=== PATIENT | female | born 1930 | race Caucasian/White ===

== ENCOUNTER 2016-12-26 11:17 | Emergency (ER) | payer OTHER ==
--- NOTE | 2016-12-26 11:16 | EDPHY ---
H & P Time Seen by Provider: 12/26/16 11:20 HPI/ROS: CHIEF COMPLAINT: Altered mental status last night HISTORY OF PRESENT ILLNESS: Patient is going through chemotherapy for Hodgkin' s lymphoma and last night apparently was delirious. She thought there was a democrat at her house for cowboys, and cow girls and was trying to get food prepared for them. Her daughter showed up this morning and found out about the confusion and had her transported for evaluation. The patient currently is not confused. She thinks that the chemotherapy is just" too much for me." Currently patient does not have a headache. She has some leg pain and feels very fatigued. REVIEW OF SYSTEMS: Eye: no change in vision ENT: no sore throat Cardiac: no chest pain or syncope Pulmonary: no cough or SOB Abdomen: no vomiting, diarrhea, abdominal pain Musculoskeletal: no back pain Skin: no rash Neuro: no headache Constitutional: no fever : no urinary symptoms A comprehensive 10 point review of systems is otherwise negative aside from elements mentioned in the history of present illness. PAST MEDICAL HISTORY: Lymphoma as noted above Social history: No alcohol or tobacco, here with daughter General Appearance: Alert and conversant, cooperative. Eyes: No scleral icterus. ENT, Mouth: Normal mucous membranes. Respiratory: Normal respiratory effort, breath sounds equal, lungs are clear to auscultation. Cardiovascular: Regular rate and rhythm. Gastrointestinal: Abdomen is soft and non tender. Neurological: Alert and oriented x3. Normally conversant. Face symmetric, normal movement and sensation in all extremities. Negative pronator drift, [id number] normal bilaterally. Not confused currently Skin: Warm and dry, no rashes. Musculoskeletal: No peripheral edema and no joint swelling. Psychiatric: Not agitated. Emergency Department course/MDM: EKG, labs to include chemistries and urinalysis, noncontrast head CT. 1200: Negative head CT for stroke or bleed per Dr. Peña 1250: Results discussed, plan for discharge without antibiotics with negative urinalysis. Likely delirium, possibly related to chemotherapy, resolved at this time. Constitutional: Initial Vital Signs Temperature (C) 36.9 C 12/26/16 11:20 Heart Rate 99 12/26/16 11:20 Respiratory Rate 14 12/26/16 11:20 Blood Pressure 181/100 H 12/26/16 11:20 O2 Sat (%) 96 12/26/16 11:20 O2 Delivery Mode Room Air Allergies/Adverse Reactions: No Known Allergies Allergy (Verified 12/26/16 11:24) Home Medications: Medication Instructions Recorded Multivitamins [Multivitamin (*)] 1 each PO DAILY 10/27/11 Ascorbic Acid [Vitamin C 250 mg 250 mg PO DAILY 10/28/15 (*)] Cholecalciferol (Vitamin D3) 5,000 unit PO DAILY 10/28/15 [Vitamin D3] Timolol [Betimol] 1 drop EACHEYE BID 10/28/15 Aspirin [Aspirin 325 mg (*)] 325 mg PO DAILY PRN 03/01/16 Docusate Sodium [Colace 100 MG (*)] 100 mg PO BID PRN 03/01/16 Acetaminophen [Tylenol 325mg (*)] 650 mg PO Q4 PRN #0 tab 03/02/16 Combigan (*) 12/26/16 Lumigan 0.01% (*) 12/26/16 Medical Decision Making - Diagnostics EKG Interpretation: 12-lead EKG interpreted by me; official reading is in trace master. My interpretation is sinus rhythm with late anterior RS transition. Imaging Results: Imaging Impressions Head CT 12/26/16 11:26 Impression: 1. Moderate atrophy. 2. No acute hemorrhage, hydrocephalus, or mass effect. 3. Cerebrovascular atherosclerosis. 4. No definite acute infarct. 5. Moderate microvascular ischemic gliosis. 6. Consider MRI of the brain without and with contrast enhancement, if there is continued clinical concern. Findings and recommendations discussed with Emergency Department physician, MIREILLE YOUNG at 12:00 hour, 12/26/2016. Final report concurs with initial preliminary interpretation. - Data Points Laboratory Results: Laboratory Results 12/26/16 11:42 12/26/16 11:42 12/26/16 12/26/16 12/26/16 13:05 11:42 11:42 WBC 3.45 10^3/uL L 10^3/uL (3.80-9.50) RBC 4.33 10^6/uL 10^6/uL (4.18-5.33) Hgb 11.4 g/dL L g/dL (12.6-16.3) Hct 34.3 % L % (38.0-47.0) MCV 79.2 fL L fL (81.5-99.8) MCH 26.3 pg L pg (27.9-34.1) MCHC 33.2 g/dL g/dL (32.4-36.7) RDW 17.2 % H % (11.5-15.2) Plt Count 355 10^3/uL 10^3/uL (150-400) MPV 10.3 fL fL (8.7-11.7) Neut % (Auto) 40.4 % % (39.3-74.2) Lymph % (Auto) 28.1 % % (15.0-45.0) [place] % (Auto) 18.8 % H % (4.5-13.0) Eos % (Auto) 8.1 % H % (0.6-7.6) Baso % (Auto) 2.6 % H % (0.3-1.7) Nucleat RBC Rel Count 0.0 % % (0.0-0.2) Absolute Neuts (auto) 1.39 10^3/uL L 10^3/uL (1.70-6.50) Absolute Lymphs (auto) 0.97 10^3/uL L 10^3/uL (1.00-3.00) Absolute Monos (auto) 0.65 10^3/uL 10^3/uL (0.30-0.80) Absolute Eos (auto) 0.28 10^3/uL 10^3/uL (0.03-0.40) Absolute Basos (auto) 0.09 10^3/uL 10^3/uL (0.02-0.10) Absolute Nucleated RBC 0.00 10^3/uL 10^3/uL (0-0.01) Immature Gran % 2.0 % H % (0.0-1.1) Immature Gran # 0.07 10^3/uL 10^3/uL (0.00-0.10) Sodium 128 mEq/L L mEq/L (134-144) Potassium 4.5 mEq/L mEq/L (3.5-5.2) Chloride 96 mEq/L L mEq/L (97-110) Carbon Dioxide 22 mEq/l mEq/l (22-31) Anion Gap 10 mEq/L mEq/L (8-16) BUN 11 mg/dL mg/dL (7-23) Creatinine 0.7 mg/dL mg/dL (0.6-1.0) Estimated GFR > 60 Glucose 221 mg/dL H mg/dL (70-100) Calcium 9.2 mg/dL mg/dL (8.5-10.4) Urine Color YELLOW Urine Appearance HAZY Urine pH 6.0 (5.0-7.5) Ur Specific [place] 1.014 (1.002-1.030) Urine Protein NEGATIVE (NEGATIVE) Urine Ketones NEGATIVE (NEGATIVE) Urine Blood NEGATIVE (NEGATIVE) Urine Nitrate NEGATIVE (NEGATIVE) Urine Bilirubin NEGATIVE (NEGATIVE) Urine Urobilinogen NEGATIVE EU EU (0.2-1.0) Ur Leukocyte Esterase NEGATIVE (NEGATIVE) Urine RBC 1-3 /hpf /hpf (0-3) Urine WBC 1-3 /hpf /hpf (0-3) Ur Epithelial Cells TRACE /lpf /lpf (NONE-1+) Urine Mucus TRACE /lpf /lpf (NONE-1+) Urine Glucose 1+ H (NEGATIVE) Departure - Departure Disposition: Home, Routine, Self-Care Clinical Impression: altered mental status, resolved Condition: Good Instructions: Altered Mental Status (ED) Referrals: Maris Davies MD [Primary Care Provider] - As per Instructions
[2016-12-26 11:23] VITALS: TEMP 98.4; O2SAT 96
--- NOTE | 2016-12-26 11:42 | CPEKG ---
Heart Rate: 95 RR Interval: 632 P-R Interval: 176 QRSD Interval: 66 QT Interval: 380 QTC Interval: 478 P [place]: 50 QRS [place]: -12 T Wave [place]: 27 EKG Severity - ABNORMAL ECG - EKG Impression: SINUS RHYTHM EKG Impression: ABNRM R PROG, CONSIDER ASMI OR LEAD PLACEMENT Electronically Signed By: Bhavik Howe 26-Dec-2016 12:08:57
[2016-12-26 11:52] LABS: ABSOLUTE IMMATURE GRANULOCYTES 0.07 10^3/uL (0.00-0.10); ADD DIFF? NO; ADD MORPH? NO; ADD SCAN? NO; ATYPICAL LYMPHOCYTE FLAG 20 (0-99); FRAGMENT RBC FLAG 20 (0-99); HEMATOCRIT 34.3 % (38.0-47.0); HEMOGLOBIN 11.4 g/dL (12.6-16.3); LEFT SHIFT FLG 20 (0-99); LIPEMIA HEMOLYSIS FLAG 80 (0-99); MEAN CELL HEMOGLOBIN 26.3 pg (27.9-34.1); MEAN CELL HEMOGLOBIN CONCENTR. 33.2 g/dL (32.4-36.7); MEAN CELL VOLUME 79.2 fL (81.5-99.8); MEAN PLATELET VOLUME 10.3 fL (8.7-11.7); PLATELET CLUMPS FLAG 0 (0-99); PLATELET COUNT 355 10^3/uL (150-400); RED BLOOD CELL COUNT 4.33 10^6/uL (4.18-5.33); RED CELL DISTRIBUTION WIDTH 17.2 % (11.5-15.2)
[2016-12-26 12:26] LABS: ANION GAP 10 mEq/L (8-16); CALCIUM 9.2 mg/dL (8.5-10.4); CARBON DIOXIDE 22 mEq/l (22-31); CHLORIDE 96 mEq/L (97-110); CREATININE 0.7 mg/dL (0.6-1.0); GLOMERULAR FILTRATION RATE > 60; GLUCOSE 221 mg/dL (70-100); POTASSIUM 4.5 mEq/L (3.5-5.2); SODIUM 128 mEq/L (134-144)
[2016-12-26 12:42] VITALS: PULSE 84; RESP 18
[2016-12-26 13:11] VITALS: BP 161/94
[2016-12-26 13:11] LABS: COLOR YELLOW; LEUKOCYTE ESTERASE,URINE NEGATIVE (NEGATIVE); NITRITE,URINE NEGATIVE (NEGATIVE)
[2016-12-26 13:20] LABS: MUCUS TRACE /lpf (NONE-1+)
== END 2016-12-26 13:11 | disposition home or self-care (01) ==
LOC: EDUNIT#
DX: R41.82 Altered mental status, unspecified (principal); Z79.82 Long term (current) use of aspirin; Z85.71 Personal history of Hodgkin lymphoma

== ENCOUNTER 2017-02-01 20:28 | Inpatient (IN) | payer OTHER ==
[2017-02-01] MEDS ORDERED: IOPAMIDOL (ISOVUE-300) 100 ML BTL ONE ×2 (20:46→20:55)
--- NOTE | 2017-02-01 20:51 | CPEKG ---
Heart Rate: 108 RR Interval: 556 P-R Interval: 156 QRSD Interval: 68 QT Interval: 344 QTC Interval: 461 P [place]: 58 QRS [place]: 5 T Wave [place]: 51 EKG Severity - OTHERWISE NORMAL ECG - EKG Impression: SINUS TACHYCARDIA Electronically Signed By: Jaswinder Payton 02-Feb-2017 09:06:54
[2017-02-01 20:58] LABS: COLOR YELLOW; LEUKOCYTE ESTERASE,URINE 3+ (NEGATIVE); NITRITE,URINE NEGATIVE (NEGATIVE)
[2017-02-01 20:59] LABS: % IMMATURE GRANULYOCYTES 0.6 % (0.0-1.1); ABSOLUTE IMMATURE GRANULOCYTES 0.06 10^3/uL (0.00-0.10); ADD DIFF? NO; ADD MORPH? NO; ADD SCAN? NO; ATYPICAL LYMPHOCYTE FLAG 0 (0-99); FRAGMENT RBC FLAG 20 (0-99); HEMATOCRIT 36.5 % (38.0-47.0); HEMOGLOBIN 12.1 g/dL (12.6-16.3); LEFT SHIFT FLG 0 (0-99); LIPEMIA HEMOLYSIS FLAG 80 (0-99); MEAN CELL HEMOGLOBIN 27.1 pg (27.9-34.1); MEAN CELL HEMOGLOBIN CONCENTR. 33.2 g/dL (32.4-36.7); MEAN CELL VOLUME 81.8 fL (81.5-99.8); MEAN PLATELET VOLUME 9.5 fL (8.7-11.7); PLATELET CLUMPS FLAG 0 (0-99); PLATELET COUNT 394 10^3/uL (150-400); RED BLOOD CELL COUNT 4.46 10^6/uL (4.18-5.33); RED CELL DISTRIBUTION WIDTH 17.7 % (11.5-15.2)
[2017-02-01 21:07] LABS: WBC,URINE 50-182 /hpf (0-3)
[2017-02-01 21:08] LABS: RBC,URINE NONE SEEN /hpf (0-3)
[2017-02-01 21:17] LABS: ANION GAP 13 mEq/L (8-16); CALCIUM 9.7 mg/dL (8.5-10.4); CARBON DIOXIDE 21 mEq/l (22-31); CHLORIDE 98 mEq/L (97-110); CREATININE 0.7 mg/dL (0.6-1.0); GLOMERULAR FILTRATION RATE > 60; GLUCOSE 196 mg/dL (70-100); POTASSIUM 3.9 mEq/L (3.5-5.2); SODIUM 132 mEq/L (134-144)
--- NOTE | 2017-02-01 21:45 | EDPHY ---
H & P Stated Complaint: increased confusion last 2 days Time Seen by Provider: 02/01/17 21:24 - Personal History Current Tetanus Diphtheria and Acellular Pertussis (TDAP): No Tetanus Vaccine Date: < 10 yeaes - Medical/Surgical History Hx Asthma: No Hx Chronic Respiratory Disease: No Hx Diabetes: No Hx Cardiac Disease: No Hx Renal Disease: No Hx Cirrhosis: No Hx Alcoholism: No Hx HIV/AIDS: No Hx Splenectomy or Spleen Trauma: No Other PMH: HTN, LAP TYREL, CATARACTS SURGERY. LEFT KNEE REPLACEMENT. hodgkins lymphoma (radiation & chemotherapy 02/2016), chemo Aug 2016/October 2016, hyponatremia - Social History Smoking Status: Never smoked Constitutional: Initial Vital Signs Temperature (C) 37.3 C 02/01/17 20:32 Heart Rate 109 H 02/01/17 20:32 Respiratory Rate 20 02/01/17 20:32 Blood Pressure 211/102 H 02/01/17 20:32 O2 Sat (%) 95 02/01/17 20:32 O2 Delivery Mode Room Air Allergies/Adverse Reactions: No Known Allergies Allergy (Verified 12/26/16 11:24) Home Medications: Medication Instructions Recorded Multivitamins [Multivitamin (*)] 1 each PO DAILY 10/27/11 Ascorbic Acid [Vitamin C 250 mg 250 mg PO DAILY 10/28/15 (*)] Cholecalciferol (Vitamin D3) 5,000 unit PO DAILY 10/28/15 [Vitamin D3] Timolol [Betimol] 1 drop EACHEYE BID 10/28/15 Aspirin [Aspirin 325 mg (*)] 325 mg PO DAILY PRN 03/01/16 Docusate Sodium [Colace 100 MG (*)] 100 mg PO BID PRN 03/01/16 Acetaminophen [Tylenol 325mg (*)] 650 mg PO Q4 PRN #0 tab 03/02/16 Combigan (*) 12/26/16 Lumigan 0.01% (*) 12/26/16 Medical Decision Making - Diagnostics Imaging Results: Imaging Impressions Head CT 02/01/17 20:43 Impression: Senescent features, with no significant interval change from 2016, or evidence of intracranial metastatic disease. Consider an MRI of the brain (without and with contrast), if there is continuing clinical concern, and if not contraindicated. Findings were discussed with Ezio Goodwin MD at 21:34, on 02/01/2017. Imaging: Discussed imaging studies w/ geospatial intelligence analyst Radiologist ED Course/Re-evaluation: CHIEF COMPLAINT: Confusion HISTORY OF PRESENT ILLNESS: The patient is an 86 y/o female arriving with her family member complaining of confusion. She states she walked naked through the hallway and does not know why. She has a history of Hodgkin's lymphoma and her most recent session of chemotherapy was a few months ago. She denies urinary complaints, fever, abdominal pain, trauma, or recent illness. She otherwise feels normal. REVIEW OF SYSTEMS: A 10 point review of systems was performed and is negative with the exception of the elements mentioned in the history of present illness. PHYSICAL EXAM: HR, BP, O2 Sat, RR. Temp noted General Appearance: Alert, well hydrated, appropriate, and non-toxic appearing. Head: Atraumatic without scalp tenderness or obvious injury Eyes: Pupils equal, round, reactive to light and accommodation, EOMI, no trauma , no injection. Nose: Atraumatic, no rhinorrhea, clear. Throat: Mucus membranes moist. Neck: Supple, non-tender, no lymphadenopathy. Respiratory: No retractions, no distress, no wheezes, and no accessory muscle use. Lungs are clear to auscultation bilaterally. Cardiovascular: Regular rate and rhythm, no murmurs, rubs, or gallops. Good capillary refill all extremities. Gastrointestinal: Abdomen is soft, non-tender, non-distended, no masses, no rebound, no guarding, no peritoneal signs. Musculoskeletal: Normal active ROM of all extremities, atraumatic. Neurological: Alert, appropriate, and interactive. Nonfocal neuro exam. Skin: No rashes, good turgor, no nodules on palpation. PAST MEDICAL HISTORY: Hodgkin's lymphoma - recent chemo, hypertension PAST SURGICAL HISTORY: Cholecystectomy, knee replacement SOCIAL HISTORY: Lives in independent living at [facility]. Family member at bedside. DIAGNOSTICS/PROCEDURES/CRITICAL CARE TIME: Head CT: negative for acute process DIFFERENTIAL DIAGNOSIS: The differential diagnosis for the patient's altered mental status included but was not limited to hypoglycemia, infectious process, electrolyte abnormality, head injury, neurologic process, anemia, cardiac process, and intoxicants. MEDICAL DECISION MAKING: This is a pleasant 86 y/o female presenting with gradually worsening confusion over the last few days. Her exam is otherwise unremarkable. Plan for IV, labs, UA, and head CT to rule out metastases or other acute process. UA indicates UTI. Patient will not be able to care for herself in her independent living facility alone and will require admission. Dr. Waite accepts admission. - Data Points Laboratory Results: Laboratory Results 02/01/17 20:40 02/01/17 20:40 02/01/17 02/01/17 02/01/17 20:48 20:48 20:40 WBC RBC Hgb POC Hgb 13.3 gm/dL gm/dL (12.6-16.3) Hct POC Hct 39 % % (38-47) MCV MCH MCHC RDW Plt Count MPV Neut % (Auto) Lymph % (Auto) [place] % (Auto) Eos % (Auto) Baso % (Auto) Nucleat RBC Rel Count Absolute Neuts (auto) Absolute Lymphs (auto) Absolute Monos (auto) Absolute Eos (auto) Absolute Basos (auto) Absolute Nucleated RBC Immature Gran % Immature Gran # POC Sodium 136 mEq/L mEq/L (134-144) Sodium 132 mEq/L L mEq/L (134-144) POC Potassium 3.6 mEq/L mEq/L (3.3-5.0) Potassium 3.9 mEq/L mEq/L (3.5-5.2) POC Chloride 98 mEq/L mEq/L (97-110) Chloride 98 mEq/L mEq/L (97-110) Carbon Dioxide 21 mEq/l L mEq/l (22-31) Anion Gap 13 mEq/L mEq/L (8-16) POC BUN 14 mg/dL mg/dL (7-23) BUN 15 mg/dL mg/dL (7-23) Creatinine 0.7 mg/dL mg/dL (0.6-1.0) POC Creatinine 0.7 mg/dL mg/dL (0.6-1.0) Estimated GFR > 60 Glucose 196 mg/dL H mg/dL (70-100) POC Glucose 199 mg/dL H mg/dL (70-100) Calcium 9.7 mg/dL mg/dL (8.5-10.4) Urine Color YELLOW Urine Appearance TURBID Urine pH 5.0 (5.0-7.5) Ur Specific [place] 1.020 (1.002-1.030) Urine Protein 2+ H (NEGATIVE) Urine Ketones NEGATIVE (NEGATIVE) Urine Blood NEGATIVE (NEGATIVE) Urine Nitrate NEGATIVE (NEGATIVE) Urine Bilirubin NEGATIVE (NEGATIVE) Urine Urobilinogen NEGATIVE EU EU (0.2-1.0) Ur Leukocyte Esterase 3+ H (NEGATIVE) Urine RBC NONE SEEN /hpf /hpf (0-3) Urine WBC 50-182 /hpf H /hpf (0-3) Ur Epithelial Cells TRACE /lpf /lpf (NONE-1+) Urine Glucose NEGATIVE (NEGATIVE) 02/01/17 20:40 WBC 10.19 10^3/uL H 10^3/uL (3.80-9.50) RBC 4.46 10^6/uL 10^6/uL (4.18-5.33) Hgb 12.1 g/dL L g/dL (12.6-16.3) POC Hgb Hct 36.5 % L % (38.0-47.0) POC Hct MCV 81.8 fL fL (81.5-99.8) MCH 27.1 pg L pg (27.9-34.1) MCHC 33.2 g/dL g/dL (32.4-36.7) RDW 17.7 % H % (11.5-15.2) Plt Count 394 10^3/uL 10^3/uL (150-400) MPV 9.5 fL fL (8.7-11.7) Neut % (Auto) 74.7 % H % (39.3-74.2) Lymph % (Auto) 13.1 % L % (15.0-45.0) [place] % (Auto) 10.6 % % (4.5-13.0) Eos % (Auto) 0.3 % L % (0.6-7.6) Baso % (Auto) 0.7 % % (0.3-1.7) Nucleat RBC Rel Count 0.0 % % (0.0-0.2) Absolute Neuts (auto) 7.62 10^3/uL H 10^3/uL (1.70-6.50) Absolute Lymphs (auto) 1.33 10^3/uL 10^3/uL (1.00-3.00) Absolute Monos (auto) 1.08 10^3/uL H 10^3/uL (0.30-0.80) Absolute Eos (auto) 0.03 10^3/uL 10^3/uL (0.03-0.40) Absolute Basos (auto) 0.07 10^3/uL 10^3/uL (0.02-0.10) Absolute Nucleated RBC 0.00 10^3/uL 10^3/uL (0-0.01) Immature Gran % 0.6 % % (0.0-1.1) Immature Gran # 0.06 10^3/uL 10^3/uL (0.00-0.10) POC Sodium Sodium POC Potassium Potassium POC Chloride Chloride Carbon Dioxide Anion Gap POC BUN BUN Creatinine POC Creatinine Estimated GFR Glucose POC Glucose Calcium Urine Color Urine Appearance Urine pH Ur Specific [place] Urine Protein Urine Ketones Urine Blood Urine Nitrate Urine Bilirubin Urine Urobilinogen Ur Leukocyte Esterase Urine RBC Urine WBC Ur Epithelial Cells Urine Glucose Point of Care Test Results: 02/01/17 20:48 POC Sodium 136 POC Potassium 3.6 POC Chloride 98 POC BUN 14 POC Creatinine 0.7 POC Glucose 199 H Departure - Departure Disposition: [facility] Inpatient Acute Clinical Impression: Confusion UTI (urinary tract infection) Qualifiers: Urinary tract infection type: site unspecified Hematuria presence: without hematuria Qualified Code(s): N39.0 - Urinary tract infection, site not specified Condition: Fair Referrals: Maris Davies MD [Primary Care Provider] - As per Instructions Report Scribed for: Ezio Goodwin Report Scribed by: Jodi Saini Date of Report: 02/01/17 Time of Report: 21:45
[2017-02-01] MEDS ORDERED: ONDANSETRON DISINTEGRATING 4 MG TAB PO PRN (23:06)
[2017-02-01] MEDS ORDERED: ACETAMINOPHEN 325 MG TAB PO PRN (23:06)
[2017-02-01] MEDS ORDERED: ONDANSETRON 4 MG/2 ML VIAL IVP PRN (23:06)
[2017-02-01] MEDS ORDERED: NS 1,000 ML IV SCH (23:15)
--- NOTE | 2017-02-02 00:41 | GHP ---
[f rep st] HISTORY AND PHYSICAL DATE OF ADMISSION: 02/01/2017 HISTORY: This patient is a pleasant 86-year-old female with history of glaucoma and Hodgkin lymphom a, who lives at [facility]. At baseline, she has no memory issues, but she was walking in the [place] [address] with no clothes on but her walker. She was brought here, where workup revealed pyuria. When I spoke with the patient, she denied urinary symptoms, other than maybe a little bit of difficulty wit h urinating. She is not on any anticholinergic medicines, other than potentially dorzolamide eyedro ps. She has intermittent diarrhea, but it is not worse. No shortness of breath. No cough. No fever or chills. No chest pain. She is not taking any [id number] medicines. She does not drink alco hol. She was diagnosed with Hodgkin disease 2 years ago, completed chemotherapy and radiation with not much response, but it sounds like she is getting a liposomal preparation as an outpatient ____ good response to it. She is not neutropenic today. She does not have a history of UTIs. REVIEW OF SYSTEMS: Complete 10-point review of systems conducted; negative except as noted in the H PI. PAST MEDICAL HISTORY: Hodgkin disease, glaucoma, hypertension in the past, no longer on medicines. She had glaucoma surgery 8 days ago, is currently denying vision complaints. ALLERGIES: No known drug allergies. HOME MEDICATIONS: Aspirin, Lumigan eye drops, Combigan eye drops, vitamin D3, dorzolamide eye drops , multivitamin. SOCIAL HISTORY: No alcohol or tobacco. Originally from [place]. Lives in [facility]. . FAMILY HISTORY: Daughter is healthy. PHYSICAL EXAMINATION: VITAL SIGNS: Temp 37.3, blood pressure 211/102, now 150/100, pulse 109, now 98, breathing 20 times a minute, 95% on room air. GENERAL: No acute distress. HEENT: Sclerae ani cteric. Oropharynx clear. Mucous membranes moist. NECK: Supple without lymphadenopathy or JVD. LUNGS: Clear to auscultation bilaterally. HEART: S1, S2. Borderline tachycardic. ABDOMEN: Soft . There is no suprapubic tenderness. LOWER EXTREMITIES: Without edema. Calves nontender. SKIN: Without rash. NEUROLOGIC: Nonfocal. LABORATORY DATA: White count 10.2, hematocrit 36.5, platelets 394,000. Sodium 132, potassium 3.9, chloride 98, bicarb 21, BUN 15, creatinine 0.7, glucose 196. UA shows 3+ leukocyte esterase, 50-[address] shows senescent features, no acute findings. EKG, interpreted by me, shows sinus tach at 108 with normal axis and intervals. There are no ST or T-wave changes. Discussed the case Dr. Ezio Goodwin. ASSESSMENT/PLAN: This is an 86-year-old female who presents with urinary tract infection and enceph alopathy. 1. Encephalopathy. This is manifest by wandering naked in the hallway with her walker. She is jameson rt and oriented pretty much x3 and does not seem confused when I speak with her. I think it is attr ibutable to the UTI. She has had no substances or ingestions. Normal noncontrast head CT. 2. Urinary tract infection. She does not have symptoms, but she does have confusion. It is reason able to treat. I will start her on ceftriaxone. Urine culture sent. 3. Lymphoma. In the morning, I will inform her oncologist, Dr. Bernard, that she is here. There are no active issues, is no neutropenic, is not thrombocytopenic. 4. Code status. We discussed that she is full code. It sounds like she has not really thought abo ut it much. She is going to talk about it with her daughter, who is a white sugar pan tank operator. 5. Hyponatremia, mild. 6. Tachycardia. I think the patient is clinically dry. Will give her a couple liters of IV fluids at 125 an hour. 7. Prophylaxis. Start enoxaparin 30 daily. /[id number]/MODL
[2017-02-02 05:06] LABS: % IMMATURE GRANULYOCYTES 0.4 % (0.0-1.1); ABSOLUTE IMMATURE GRANULOCYTES 0.03 10^3/uL (0.00-0.10); ADD DIFF? NO; ADD MORPH? NO; ADD SCAN? NO; ATYPICAL LYMPHOCYTE FLAG 0 (0-99); FRAGMENT RBC FLAG 20 (0-99); HEMATOCRIT 32.7 % (38.0-47.0); HEMOGLOBIN 10.8 g/dL (12.6-16.3); LEFT SHIFT FLG 10 (0-99); LIPEMIA HEMOLYSIS FLAG 80 (0-99); MEAN CELL HEMOGLOBIN 27.3 pg (27.9-34.1); MEAN CELL VOLUME 82.6 fL (81.5-99.8); MEAN PLATELET VOLUME 10.3 fL (8.7-11.7); PLATELET CLUMPS FLAG 0 (0-99); PLATELET COUNT 353 10^3/uL (150-400); RED BLOOD CELL COUNT 3.96 10^6/uL (4.18-5.33); RED CELL DISTRIBUTION WIDTH 17.6 % (11.5-15.2)
[2017-02-02 05:18] LABS: ANION GAP 10 mEq/L (8-16); CALCIUM 9.4 mg/dL (8.5-10.4); CARBON DIOXIDE 23 mEq/l (22-31); CHLORIDE 100 mEq/L (97-110); CREATININE 0.7 mg/dL (0.6-1.0); GLOMERULAR FILTRATION RATE > 60; GLUCOSE 138 mg/dL (70-100); POTASSIUM 3.9 mEq/L (3.5-5.2); SODIUM 133 mEq/L (134-144)
[2017-02-02] MEDS: CHOLECALCIFEROL VIT D3 1,000 UNITS TAB PO SCH (08:19)
[2017-02-02] MEDS: MULTIVITAMINS 1 EACH TAB PO SCH (08:20)
[2017-02-02] MEDS: ASPIRIN 325 MG TAB PO SCH (08:20)
[2017-02-02] MEDS: BRIMONIDINE/TIMOLOL 5 ML OPHT.BTL EACHEYE SCH ×2 (08:22→20:14)
[2017-02-02] MEDS: DORZOLAMIDE 2% OPTH DROPS EACHEYE SCH ×2 (08:22→20:15)
[2017-02-02] MEDS ORDERED: ENOXAPARIN 30 MG/0.3 ML SYR SC SCH (09:00)
[2017-02-02] MEDS ORDERED: Herbals/Supplements -Info Only PO SCH (09:00)
--- NOTE | 2017-02-02 12:38 | HOSPPROG ---
Hospitalist Progress Note Assessment/Plan: The patient is a 86 y/o female who came to the ER with acute encephalopathy.Today is my first encounter with the patient/chart reviewed. *acute encephalopathy CT of head shows nothing acute she is alert and oriented to person, place, time and situation she thinks she may have been dehydrated *UTI ceftriaxone prior to being admitted, had symptoms of increase urgency and frequency will f/u w urine cx *Hodgkin lymphoma followed by Dr Bernard has received 3 rounds of chemo has one coming up soon *hyponatremia better w hydration will recheck in a.m. *anemia further f/u with PCP *htn doesn't carry a diagnosis of this per her daughter, her mom's bp goes up while in the hospital will hold treatment for now and monitor *glaucoma eye gtts resumed *Plan: watch her for another midnight/ will ask PT, OT and ST to see Subjective: Vickie is feeling much better today/ says she has been sleeping through out the day. Objective: Vital Signs Temp Pulse Resp BP Pulse Ox 36.6 C 75 15 110/58 L 95 02/02/17 11:30 02/02/17 11:30 02/02/17 11:30 02/02/17 11:30 02/02/17 11:30 Laboratory Results 02/02/17 04:25 02/02/17 04:25 02/01/17 02/02/17 02/03/17 05:59 05:59 05:59 Intake Total 50 820 Balance 50 820 - Physical Exam Constitutional: no apparent distress, appears nourished, not in pain Eyes: PERRL Ears, Nose, Mouth, Throat: hearing normal Cardiovascular: regular rate and rhythym Respiratory: no respiratory distress Gastrointestinal: normoactive bowel sounds Skin: warm Neurologic: AAOx3, CN II-XII Intact, No facial droop Psychiatric: interacting appropriately, not anxious, not encephalopathic ICD10 Worksheet Patient Problems: Problems Problem Status Onset Confusion Acute UTI (urinary tract infection) Acute Confusion Acute Hypertension Acute Hyponatremia Acute Word finding difficulty Acute
[2017-02-02] MEDS ORDERED: BIMATOPROST 0.01% 2.5 ML OPHT.BTL EACHEYE SCH (21:00)
[2017-02-03 04:41] LABS: % IMMATURE GRANULYOCYTES 0.5 % (0.0-1.1); ABSOLUTE IMMATURE GRANULOCYTES 0.05 10^3/uL (0.00-0.10); ADD DIFF? NO; ADD MORPH? NO; ADD SCAN? NO; ATYPICAL LYMPHOCYTE FLAG 0 (0-99); FRAGMENT RBC FLAG 20 (0-99); HEMATOCRIT 33.4 % (38.0-47.0); HEMOGLOBIN 11.3 g/dL (12.6-16.3); LEFT SHIFT FLG 0 (0-99); LIPEMIA HEMOLYSIS FLAG 90 (0-99); MEAN CELL HEMOGLOBIN 27.8 pg (27.9-34.1); MEAN CELL HEMOGLOBIN CONCENTR. 33.8 g/dL (32.4-36.7); MEAN CELL VOLUME 82.3 fL (81.5-99.8); MEAN PLATELET VOLUME 9.9 fL (8.7-11.7); PLATELET CLUMPS FLAG 0 (0-99); PLATELET COUNT 346 10^3/uL (150-400); RED BLOOD CELL COUNT 4.06 10^6/uL (4.18-5.33); RED CELL DISTRIBUTION WIDTH 17.6 % (11.5-15.2)
[2017-02-03 05:01] VITALS: PULSE 79
[2017-02-03 05:01] LABS: ANION GAP 12 mEq/L (8-16); CALCIUM 9.3 mg/dL (8.5-10.4); CARBON DIOXIDE 21 mEq/l (22-31); CHLORIDE 104 mEq/L (97-110); CREATININE 0.7 mg/dL (0.6-1.0); GLOMERULAR FILTRATION RATE > 60; GLUCOSE 160 mg/dL (70-100); POTASSIUM 3.8 mEq/L (3.5-5.2); SODIUM 137 mEq/L (134-144)
[2017-02-03 07:44] VITALS: BP 183/90; RESP 18; TEMP 97.7; O2SAT 96
[2017-02-03] MEDS: CHOLECALCIFEROL VIT D3 1,000 UNITS TAB PO SCH (08:31)
[2017-02-03] MEDS: MULTIVITAMINS 1 EACH TAB PO SCH (08:31)
[2017-02-03] MEDS: ASPIRIN 325 MG TAB PO SCH (08:31)
[2017-02-03] MEDS: DORZOLAMIDE 2% OPTH DROPS EACHEYE SCH (08:32)
[2017-02-03] MEDS: BRIMONIDINE/TIMOLOL 5 ML OPHT.BTL EACHEYE SCH (08:32)
[2017-02-03] MEDS ORDERED: ENOXAPARIN 40 MG/0.4 ML SYR SC SCH (09:00)
--- NOTE | 2017-02-03 10:17 | HOSPPROG ---
Hospitalist Progress Note Assessment/Plan: The patient is a 86 y/o female who came to the ER with acute encephalopathy. *acute encephalopathy CT of head shows nothing acute she is alert and oriented to person, place, time and situation completely resolved *UTI ceftriaxone prior to being admitted, had symptoms of increase urgency and frequency urine cx showed enterococcus sensitivities not up/ will dc on Ampicillin and have her PCP f/u *Hodgkin lymphoma followed by Dr Bernard has received 3 rounds of chemo has one coming up soon *hyponatremia better w hydration resolved. *anemia further f/u with PCP *htn elevated this a.m per her daughter this is not her baseline will have it monitored daily and have her f/u with her PCP *glaucoma eye gtts resumed *Plan:dc home Subjective: Vickie is feeling well/ no complaints. Objective: Vital Signs Temp Pulse Resp BP Pulse Ox 36.5 C 79 18 183/90 H 96 02/03/17 07:44 02/03/17 07:44 02/03/17 07:44 02/03/17 07:44 02/03/17 07:44 Laboratory Results 02/03/17 04:17 02/03/17 04:17 02/02/17 02/03/17 02/04/17 05:59 05:59 05:59 Intake Total 50 1670 Balance 50 1670 - Physical Exam Constitutional: no apparent distress, appears nourished, not in pain Eyes: PERRL Ears, Nose, Mouth, Throat: hearing normal Cardiovascular: regular rate and rhythym Respiratory: no respiratory distress Gastrointestinal: normoactive bowel sounds Skin: warm, normal color Musculoskeletal: no muscle tenderness Neurologic: AAOx3 Psychiatric: interacting appropriately, not anxious ICD10 Worksheet Patient Problems: Problems Problem Status Onset Confusion Acute UTI (urinary tract infection) Acute Confusion Acute Hypertension Acute Hyponatremia Acute Word finding difficulty Acute
--- NOTE | 2017-02-03 11:05 | GDS ---
[f rep st] DISCHARGE SUMMARY DISCHARGE DIAGNOSES: 1. Acute encephalopathy/resolved. 2. Urinary tract infection. 3. Hodgkin lymphoma. 4. Hyponatremia. 5. Anemia. 6. Hypertension. 7. Coma. BRIEF HISTORY: The patient is a very sweet, 86-year-old woman, with a history of glaucoma and Hodgk in lymphoma. She lives at the [facility]. At baseline, she has no memory issues. She was walking in the hallway with no clothes on, but with her walker. She was very confused. Her workup revealed py uria, after getting hydration and treated for urinary tract infection, all of her symptoms had resol myla. She had a CT scan of her head that was negative. HOSPITAL COURSE: 1. Acute encephalopathy. CT scan showed nothing acute, resolved. I suspect she was dehydrated and had a UTI. 2. Urinary tract infection. Her urine culture shows Enterococcus. I do not have current sensitivi ties. I will discharge her on amoxicillin, and leave a message for her primary care provider to fol low up with. 3. Hodgkin lymphoma. Follow up with Dr. Bernard. 4. Hyponatremia, resolved. 5. Anemia. Further monitoring with her primary care provider. 6. Hypertension. Blood pressure has been elevated during her stay. I spoke with the daughter balta lynn my concern, she said she is normotensive, unless she is here. We will have her get a blood pressu re cuff and monitor this at home. 7. Glaucoma. Eyedrops have been resumed. DISCHARGE CONDITION: Stable. Blood pressure is 169/83, heart rate is 89, respiratory rate is 17, O 2 sats on room air 94%, temperature is 37.2 Celsius. MEDICATIONS AT DISCHARGE: Please see the EMR. DISCHARGE INSTRUCTIONS: 1. Follow up with Dr. Davies. 2. Recommending that they monitor her blood pressure daily. She may need treatment. 3. If she develops fever, chills, chest pain, or shortness of breath return to the ER. Greater than 30 minutes discharging and coordinating care. /[id number]/MODL
== END 2017-02-03 12:35 | disposition home or self-care (01) | DRG 689 ==
LOC: OBSVTOIN 21:51 → F3E 22:25
PROVIDERS: ADMIT Internal Medicine; ATTEND Internal Medicine
DX: N39.0 Urinary tract infection, site not specified (principal); G93.40 Encephalopathy, unspecified; E87.1 Hypo-osmolality and hyponatremia; I10 Essential (primary) hypertension; C85.90 Non-Hodgkin lymphoma, unspecified, unspecified site; Z96.652 Presence of left artificial knee joint; H40.9 Unspecified glaucoma; D64.9 Anemia, unspecified
CPT/HCPCS: 82947-QW; 92523-GN; 97161-GP; 97165-GO; G8978-GP-CI; G8979-GP-CI; G8987-GO-CI; G8988-GO-CI; G8989-GO-CI; G9165-GN-CH; G9166-GN-CH; G9167-GN-CH; J0696; J1650; Q9967

== ENCOUNTER → 2017-04-24 | Outpatient (CLI) | payer OTHER | LOC: FIMAGING 14:08 | PROVIDERS: ATTEND Nurse Practitioner | DX: R60.9 Edema, unspecified (principal) ==

== ENCOUNTER → 2017-05-04 | Outpatient (CLI) | payer OTHER | LOC: FIMAGING 16:20 | PROVIDERS: ATTEND Nurse Practitioner | DX: R60.9 Edema, unspecified (principal) ==

== ENCOUNTER 2017-05-25 09:11 | Emergency (ER) | payer OTHER ==
[2017-05-25 09:20] VITALS: BP 172/79; PULSE 77; RESP 18; TEMP 97.3; O2SAT 97
--- NOTE | 2017-05-25 09:36 | EDPHY ---
H & P Time Seen by Provider: 05/25/17 09:19 HPI/ROS: CHIEF COMPLAINT: Left calf redness HISTORY OF PRESENT ILLNESS: Patient is had a wound on her posterior left calf for the past 6 weeks approximately. Of note she had ultrasound on April 24 and then again on May 04 both which were negative for DVT. She presents today because of physical therapist who sees her about every 2 weeks said it looked more red yesterday than usual and was concerned about infection. The patient has some intermittent pain but no change in that pattern over the past 6 weeks. No fevers or chills. No red streaking. No drainage from the wound. REVIEW OF SYSTEMS: As above, no chest pain or shortness of breath. PAST MEDICAL HISTORY: Includes Hodgkin's disease, glaucoma, hypertension, admission on 02/01/2017 for UTI, H&P personally reviewed. General Appearance: Alert and conversant, cooperative. Speaks full sentences, no extra work of breathing. Right knee and ankle of normal range of motion, which are soft and both thigh and calf. She has an area of healing wound with granulation tissue 1 cm of distal left calf with 1 cm surrounding erythema. Proximally there is an area which feels slightly indurated and is not tender but also has a 1 x 2 cm area of erythema. Scaling. No blisters or eschar. Not tender to palpation. There is no lymphangitis. No pus or drainage. Normal motor sensory and perfusion in the foot. No Achilles tenderness. Emergency Department course/MDM: Plan to treat possible cellulitis with Keflex, Bactrim. Does not appear to have systemic toxicity or require IV antibiotics. Patient had 2 recent ultrasounds, I think DVT is unlikely. Discussed with Rere at 9:[address] Bernard's office will arrange follow- up in the office on Sunday. Smoking Status: Never smoked Constitutional: Initial Vital Signs Temperature (C) 36.3 C 05/25/17 09:15 Heart Rate 77 05/25/17 09:15 Respiratory Rate 18 05/25/17 09:15 Blood Pressure 172/79 H 05/25/17 09:15 O2 Sat (%) 97 05/25/17 09:15 O2 Delivery Mode Room Air Allergies/Adverse Reactions: No Known Allergies Allergy (Verified 05/25/17 09:20) Home Medications: Medication Instructions Recorded Aspirin [Aspirin 325 mg (*)] 325 mg PO DAILY 02/01/17 Bimatoprost 0.01% [Lumigan 0.01% 1 drops EACHEYE HS 02/01/17 (*)] Brimonidine/Timolol [Combigan (*)] 1 drop EACHEYE BID 02/01/17 Cholecalciferol Vit D3 [Vitamin D3 2,000 units PO DAILY 02/01/17 (*)] Dorzolamide 2% [Trusopt 2% (*)] 1 drops EACHEYE BID 02/01/17 Herbals/Supplements -Info Only 1 ea PO DAILY 02/01/17 Multivitamins [Multivitamin (*)] 1 each PO DAILY 02/01/17 Cephalexin [Keflex] 500 mg PO QID #40 cap 05/25/17 Sulfamethox/Tmp 800/160 mg 1 tab PO BID@1000,2200 #20 tab 05/25/17 [Bactrim Ds] MDM/Departure - Depart Disposition: Home, Routine, Self-Care Clinical Impression: cellulitis left calf Condition: Good Instructions: Cellulitis (ED) Prescriptions: Cephalexin [Keflex] 500 mg PO QID #40 cap Sulfamethox/Tmp 800/160 mg [Bactrim Ds] 1 tab PO BID@1000,2200 #20 tab Referrals: Maris Davies MD [Primary Care Provider] - As per Instructions Amador Bernard MD [Medical Doctor] - 05/28/17
== END 2017-05-25 09:54 | disposition home or self-care (01) ==
LOC: CED 09:11
DX: L03.116 Cellulitis of left lower limb (principal); I10 Essential (primary) hypertension; Z79.82 Long term (current) use of aspirin

== ENCOUNTER 2017-07-13 07:54 | Inpatient (IN) | payer OTHER ==
[2017-07-13] MEDS ORDERED: ceFAZolin 2 GM/SWFI 2 GM/20 ML SYR IVP ONE (08:08)
[2017-07-13] MEDS ORDERED: LIDOCAINE 1% 2 ML INJ ONE (08:33)
[2017-07-13] MEDS ORDERED: LIDOCAINE 1% 2 ML INJ ID PRN (08:35)
[2017-07-13] MEDS ORDERED: LR 1,000 ML IV ONE (08:35)
[2017-07-13] MEDS ORDERED: BUPIVACAINE 0.5% 30 ML SDV ONE (08:45)
[2017-07-13] MEDS ORDERED: LIDOCAINE 1% 300 MG/30 ML SDV ONE (08:45)
--- NOTE | 2017-07-13 09:09 | PDHPUP ---
History & Physical Update H&P update statement: This history and physical update is based on an assessment of the patient which was completed after admission or registration (within 24 hours), but prior to the surgery/procedure. H&P update: H&P reviewed & patient examined, no change in patient's condition since H&P completed
[2017-07-13] MEDS ORDERED: MIDAZOLAM 2 MG/2 ML VIAL ONE (09:22)
[2017-07-13] MEDS ORDERED: MIDAZOLAM 2 MG/2 ML VIAL IVP ONE (09:23)
--- NOTE | 2017-07-13 09:24 | PDANEPAE ---
ANE Past Medical History - Cardiovascular History Hx Hypertension: No Hx Arrhythmias: No Hx Chest Pain: No Hx Coronary Artery / Peripheral Vascular Disease: No Hx CHF / Valvular Disease: No Hx Palpitations: No Cardiovascular History Comment: BP "sometimes runs high" - Pulmonary History Hx COPD: No Hx Asthma/Reactive Airway Disease: No Hx Recent Upper Respiratory Infection: No Hx Oxygen in Use at Home: No Hx Sleep Apnea: No Sleep Apnea Screening Result - Last Documented: Negative - Neurologic History Hx Cerebrovascular Accident: No Hx Seizures: No Hx Dementia: No Neurologic History Comment: TIA -no residual deficits. - Endocrine History Hx Diabetes: No Hypothyroid: No Hyperthyroid: No Obesity: no - Renal History Hx Renal Disorders: Yes Renal History Comment: severe UTI, hosp at [facility] 02-19. - Liver History Hx Hepatic Disorders: No - Neurological & Psychiatric Hx Hx Neurological and Psychiatric Disorders: No - Cancer History Hx Cancer: Yes Cancer History Comment: Hodgkin's lymphoma-chemo and radiation - Congenital Disorder History Hx Congenital Disorders: No - GI History GERD: no Hx Gastrointestinal Disorders: No - Other Health History Other Health History: on Rx-glaucoma. cellulitis lower extrem:scab L calf,Bx site R ankle(Dr Scruggs) - Chronic Pain History Chronic Pain: Yes (leg pain (neuropathy?)) - Surgical History Prior Surgeries: lap tessie. appy. L total knee. cataract extraction w/IOL ANE Review of Systems Review of Systems: - Exercise capacity METS (RN): 3 METS ANE Patient History - Allergies Allergies/Adverse Reactions: Sulfa (Sulfonamide Antibiotics) Allergy (Verified 07/10/17 14:04) Other-Enter Comments - Home Medications Home Medications: Aspirin [Aspirin 325 mg (*)] 325 mg PO DAILY 02/01/17 [Last Taken 07/12/17 06:00 ] Bimatoprost 0.01% [Lumigan 0.01% (*)] 1 drops EACHEYE HS 02/01/17 [Last Taken 20:00] Brimonidine/Timolol [Combigan (*)] 1 drop EACHEYE BID 02/01/17 [Last Taken 07/13 06:00] Cholecalciferol Vit D3 [Vitamin D3 (*)] 2,000 units PO DAILY 02/01/17 [Last Taken 07/12/17 06:00] Dorzolamide 2% [Trusopt 2% (*)] 1 drops EACHEYE BID 02/01/17 [Last Taken 06:00] Herbals/Supplements -Info Only 1 ea PO DAILY 02/01/17 [Last Taken 07/12/17 06:00 ] Multivitamins [Multivitamin (*)] 1 each PO DAILY 02/01/17 [Last Taken 07/12/17 06:00] Ibuprofen [Motrin (*)] 200 - 400 mg PO Q4-6PRN PRN 07/10/17 [Last Taken 11:59] - NPO status NPO Since - Liquids (Date): 07/13/17 NPO Since - Liquids (Time): 07:45 NPO Since - Solids (Date): 07/12/17 NPO Since - Solids (Time): 23:00 - Smoking Hx Smoking Status: Never smoked ANE Labs/Vital Signs - Vital Signs Blood Pressure: 187/90 Heart Rate: 84 Respiratory Rate: 15 O2 Sat (%): 97 Height: 148.59 cm Weight: 56.699 kg ANE Physical Exam - Airway Neck exam: decreased ROM Mallampati Score: Class 2 Mouth exam: normal dental/mouth exam - Pulmonary Pulmonary: no respiratory distress - Cardiovascular Cardiovascular: regular rate and rhythym - ASA Status ASA Status: II ANE Anesthesia Plan Anesthesia Plan: GA w LMA
[2017-07-13] MEDS ORDERED: PROPOFOL 200 MG/20 ML VIAL ONE (09:34)
[2017-07-13] MEDS ORDERED: fentaNYL 100 MCG/2 ML INJ ONE ×3 (09:34→11:23)
--- NOTE | 2017-07-13 10:03 | POSTOPPROG ---
Post Op Note Date of Operation: 07/13/17 Surgeon: Tonia Ramos Anesthesiologist: shannan Anesthesia: GET(General Endotracheal) Pre-op Diagnosis: chronic wound BLE Post-op Diagnosis: same Indication: 87yo F with chronic BLE wounds Procedure: Debridement skin soft tissue with versajet Findings: distal 1r8w1er, prox [id number]. gina hydrofera blue ready allevyn Inf/Abcess present in the surg proc area at time of surgery?: Yes Depth: Superfical (Skin SQ) EBL: Minimal Specimen(s): L leg distal wound for permanent
[2017-07-13] MEDS ORDERED: HYDROCODONE/APAP 5/325 TAB PO PRN (10:04)
[2017-07-13] MEDS ORDERED: ONDANSETRON DISINTEGRATING 4 MG TAB PO PRN (10:04)
[2017-07-13] MEDS ORDERED: diphenhydrAMINE 25 MG CAP PO PRN (10:04)
[2017-07-13] MEDS ORDERED: ONDANSETRON 4 MG/2 ML VIAL IVP PRN (10:04)
[2017-07-13] MEDS ORDERED: traMADol 50 MG TAB PO PRN (10:14)
[2017-07-13] MEDS ORDERED: DEXAMETHASONE 4 MG/ML VIAL ONE (10:19)
[2017-07-13] MEDS ORDERED: ONDANSETRON 4 MG/2 ML VIAL ONE (10:19)
[2017-07-13] MEDS ORDERED: SUGAMMADEX SODIUM 200 MG/2 ML VIAL IVP ONE (10:20)
[2017-07-13] MEDS ORDERED: NALOXONE HCL 0.4 MG/ML INJ IVP PRN (11:14)
[2017-07-13] MEDS ORDERED: fentaNYL 100 MCG/2 ML INJ IVP PRN (11:14)
[2017-07-13] MEDS ORDERED: PROMETHAZINE HCL 25 MG/ML INJ IVP PRN (11:14)
--- NOTE | 2017-07-13 11:16 | POSTANESTH ---
Post Anesthetic Evaluation Cardiovascular Status: Normal, Stable Respiratory Status: Normal, Stable Level of Consciousness/Mental Status: Can Participate in Eval Pain Control: Adequate, Prn Tx Ordered Nausea/Vomiting Control: Adequate, Prn Tx Ordered Complications Possibly Related to Anesthesia: None Noted
[2017-07-13] MEDS ORDERED: hydrALAZINE 20 MG/ML VIAL ONE (11:23)
[2017-07-13] MEDS: hydrALAZINE 20 MG/ML VIAL IVP PRN (11:29)
[2017-07-13] MEDS: IBUPROFEN 600 MG TAB PO PRN (16:27)
[2017-07-13] MEDS: BIMATOPROST 0.01% 2.5 ML OPHT.BTL EACHEYE SCH (22:46)
[2017-07-13] MEDS: DORZOLAMIDE 2% OPTH DROPS EACHEYE SCH (22:47)
[2017-07-13] MEDS: BRIMONIDINE/TIMOLOL 5 ML OPHT.BTL EACHEYE SCH (22:47)
[2017-07-14] MEDS: ACETAMINOPHEN 325 MG TAB PO PRN ×2 (08:46→20:19)
[2017-07-14] MEDS: CHOLECALCIFEROL VIT D3 1,000 UNITS TAB PO SCH (08:47)
[2017-07-14] MEDS: ASPIRIN 325 MG TAB PO SCH (08:48)
[2017-07-14] MEDS: ENOXAPARIN 40 MG/0.4 ML SYR SC SCH (08:49)
[2017-07-14] MEDS: DORZOLAMIDE 2% OPTH DROPS EACHEYE SCH ×2 (09:07→22:23)
[2017-07-14] MEDS: BRIMONIDINE/TIMOLOL 5 ML OPHT.BTL EACHEYE SCH ×2 (09:07→22:22)
[2017-07-14] MEDS: IBUPROFEN 600 MG TAB PO PRN ×2 (10:09→18:25)
[2017-07-14 10:51] LABS: ALANINE AMINOTRANSFERASE 26 IU/L (9-52); ALBUMIN 3.1 g/dL (3.5-5.0); ALKALINE PHOSPHATASE 66 IU/L (38-126); ANION GAP 15 mEq/L (8-16); ASPARTATE AMINOTRANSFERASE 18 IU/L (14-46); CARBON DIOXIDE 20 mEq/l (22-31); CHLORIDE 105 mEq/L (97-110); CREATININE 0.9 mg/dL (0.6-1.0); GLOMERULAR FILTRATION RATE 59; GLUCOSE 180 mg/dL (70-100); POTASSIUM 3.9 mEq/L (3.5-5.2); SODIUM 140 mEq/L (134-144); TOTAL PROTEIN 5.8 g/dL (6.3-8.2)
[2017-07-14 10:54] LABS: BILIRUBIN,TOTAL < 0.1 mg/dL (0.1-1.4)
[2017-07-14] MEDS ORDERED: IOPAMIDOL (ISOVUE 370) 100 ML BTL IV ONE (11:21)
--- NOTE | 2017-07-14 14:38 | SOAPPROG ---
SOAP Progress Note Assessment/Plan: Assessment: POD # 1 s/p debridement skin soft tissue left posterior calf and right dorsum of foot Apologized to her daughter for not speaking with her after surgery CTA today with the following findings (discussed with Hannah) 1) Severe stenosis and small left kidney - Cr normal, kidney atrophic so intervention not needed 2) Lymph nodes by aorta 3) Excellent blood vessels bilaterally with 3 vessel runoff 4) Marked edema of L leg. Reviewed previous ultrasounds. Discussed with Dr. Berry and venogram tomorrow with possible plasty. ? stenosis of iliac vein or femoral vein I think the edema is contributing to the wounds on the left leg Unsure of etiology on the right foot - likely pressure S: Pain very well controlled. least amount of pain she has been in since thanksgiving O: Dressings in place, sitting up in chair eating hamburger, very comfortable Plan: 07/14/17 14:30 Objective: Vital Signs Temp Pulse Resp BP Pulse Ox 36.4 C 70 18 157/72 H 94 07/14/17 12:05 07/14/17 12:05 07/14/17 12:05 07/14/17 12:05 07/14/17 12:05 Laboratory Results 07/14/17 09:50 07/13/17 07/14/17 07/15/17 05:59 05:59 05:59 Intake Total 1070 Output Total 5 Balance 1065 ICD10 Worksheet Patient Problems: Problems Problem Status Onset Confusion Acute Confusion Acute Hypertension Acute Hyponatremia Acute UTI (urinary tract infection) Acute Word finding difficulty Acute
--- NOTE | 2017-07-14 16:50 | ASMTCMCOM ---
CM Note CM Note Notes: Spoke w/RN, pt lives at [facility]. Will need debridement of wounds in OR, dc needs TBD, MARCO w/f. Date Signed: 07/14/2017 04:49 PM Electronically Signed By:Supriya Mae RN
--- NOTE | 2017-07-14 19:52 | PDPROPOC ---
Sedation Plan of Care Sedation Plan of Care: vital signs stable, mental status noted, patient educated of risks, benefits, alternatives, patient can tolerate sedation ASA Classification: ASA 3 Mallampati Score: Class 3 Mallampati Reference Image: Patient passed 3-3-2 rule?: Yes
[2017-07-14] MEDS ORDERED: NS 1,000 ML IV SCH (20:00)
[2017-07-14 22:01] LABS: HEMATOCRIT 32.2 % (38.0-47.0)
[2017-07-14] MEDS: BIMATOPROST 0.01% 2.5 ML OPHT.BTL EACHEYE SCH (22:22)
[2017-07-14 22:36] LABS: INR 0.96 (0.83-1.16)
[2017-07-14 22:39] LABS: APTT 20.6 SEC (23.0-38.0)
[2017-07-15] MEDS: IBUPROFEN 600 MG TAB PO PRN ×3 (02:30→18:24)
[2017-07-15] MEDS: hydrALAZINE 20 MG/ML VIAL IVP PRN ×3 (08:19→17:13)
[2017-07-15] MEDS: CHOLECALCIFEROL VIT D3 1,000 UNITS TAB PO SCH ×2 (08:25→10:59)
[2017-07-15] MEDS: ACETAMINOPHEN 325 MG TAB PO PRN ×2 (08:25→16:17)
--- NOTE | 2017-07-15 09:47 | GOP ---
[f rep st] OPERATIVE REPORT DATE OF OPERATION: 07/13/2017 SURGEON: Kelly Scruggs MD FOREST OFFICER: RIAZ Lofton student. ANESTHESIA: General. ANESTHESIOLOGIST: Gerhard Cruz MD. PREOPERATIVE DIAGNOSIS: Chronic wounds, bilateral lower extremities. POSTOPERATIVE DIAGNOSIS: Chronic wounds, bilateral lower extremities. PROCEDURE PERFORMED: Debridement skin, soft tissue, to the level of subcutaneous tissues. FINDINGS: The right lower extremity anterior foot distal wound measures 1 x 1 x 0.4 cm. The right lower extremity anterior foot wound measures 1.5 x 1.5 x 0.4 cm. The left lower extremity posterior leg distal measures 2 x 3 x 1 cm and the proximal measures 3.5 x 3.5 x 1 cm. SPECIMENS: Left distal leg wound for permanent. ESTIMATED BLOOD LOSS: Less than 10 cc. INDICATIONS: The patient is an 87-year-old woman with lymphoma. She has had increasing edema on her left leg since she underwent lymph node biopsy. She is undergoing lymphedema therapy. She developed wounds on her posterior calf, as well as on her anterior foot. I performed biopsies which were negative for malignancy. The wounds are too painful to be debrided in the office. DESCRIPTION OF PROCEDURE: The patient was brought into the operating room, placed supine on the table, and general anesthesia was administered. She was then placed in the decubitus position. Her left lower extremity was prepped with Betadine and draped in the usual sterile fashion. I used the Versajet to debride the wounds down to healthy granulation tissue. These were unstageable pressure ulcers, and I believe they are stage III pressure ulcers. They were debrided down to the level of fat, which was healthy. Hemostasis was achieved. The wounds were dressed with Elyse and Hydrofera Blue. Next, she was placed in the supine position. I prepped her foot with Betadine and I debrided the 2 wounds on her foot, again to the level of healthy granulation tissue. They were smaller. They were also packed with Elyse and Hydrofera Blue Ready. Dressings were applied. She was awakened in the operating room, extubated, and transferred to PACU in stable condition. /[id number]/MODL MTDD
[2017-07-15] MEDS: DORZOLAMIDE 2% OPTH DROPS EACHEYE SCH ×2 (10:57→20:41)
[2017-07-15] MEDS: BRIMONIDINE/TIMOLOL 5 ML OPHT.BTL EACHEYE SCH ×2 (11:00→20:41)
[2017-07-15] MEDS: ASPIRIN 325 MG TAB PO SCH (11:00)
--- NOTE | 2017-07-15 11:11 | SOAPPROG ---
SOAP Progress Note Assessment/Plan: Assessment: 87yo F POD#2 s/p debridement skin and soft tissue left posterior calf and right dorsum of foot Pain controlled. Discussed adding neurontin to regimen - will discuss c pharmacy Venogram/plasty today with IR Dressings changed today - gina, HFB ready and allevyn F/u outpatient wound healing center. Daughter to change dressings at home Dispo: home tomorrow S: Having burning pain in right leg today during dressing change. O: Laying in bed, comfortable, NAD, accompanied by daughter No increased WOB Min peripheral edema L posterior leg wounds without surrounding erythema. Pale tissue in base of wounds, small amounts of granulation R dorsal foot wounds without evidence of infection, granulation in base Dressings replaced - gina, HFB ready and allevyns Objective: Vital Signs Temp Pulse Resp BP Pulse Ox 36.8 C 82 14 182/88 H 92 07/15/17 07:53 07/15/17 07:53 07/15/17 07:53 07/15/17 07:53 07/15/17 07:53 Laboratory Results 07/14/17 21:38 07/14/17 09:50 07/14/17 07/15/17 07/16/17 05:59 05:59 05:59 Intake Total 1070 0 Output Total 5 Balance 1065 0 PT 13.0 SEC (12.0-15.0) 07/14/17 21:38 INR 0.96 (0.83-1.16) 07/14/17 21:38 ICD10 Worksheet Patient Problems: Problems Problem Status Onset Confusion Acute Confusion Acute Hypertension Acute Hyponatremia Acute UTI (urinary tract infection) Acute Word finding difficulty Acute
[2017-07-15] MEDS ORDERED: MEPERIDINE 25 MG/ML SYR IVP PRN (11:12)
[2017-07-15] MEDS ORDERED: PROTAMINE SULFATE 50 MG/5 ML VIAL IVP PRN (11:12)
[2017-07-15] MEDS ORDERED: HEPARIN 10,000 UNIT/10 ML MDV IVP PRN (11:12)
[2017-07-15] MEDS ORDERED: FLUMAZENIL 0.5 MG/5 ML MDV IVP PRN (11:12)
[2017-07-15] MEDS ORDERED: NALOXONE HCL 0.4 MG/ML INJ IVP PRN (11:12)
[2017-07-15] MEDS ORDERED: GLUCAGON HCL 1 MG VIAL IVP PRN (11:12)
[2017-07-15] MEDS ORDERED: ALTEPLASE 2 MG VIAL IVP PRN (11:12)
[2017-07-15] MEDS ORDERED: fentaNYL 100 MCG/2 ML INJ IVP PRN (11:12)
[2017-07-15] MEDS ORDERED: MIDAZOLAM 2 MG/2 ML VIAL IVP PRN (11:12)
[2017-07-15] MEDS ORDERED: NS 1,000 ML IV SCH (11:15)
[2017-07-15] MEDS ORDERED: IOPAMIDOL (ISOVUE-300) 100 ML BTL ONE (11:31)
[2017-07-15] MEDS ORDERED: CLOPIDOGREL BISULFATE 75 MG TAB PO ONE (13:39)
--- NOTE | 2017-07-15 13:39 | PDRADPN ---
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 Procedure: Stenting of left common iliac vein Finding(s): 12 X 60 LifeStar stent across severe stenosis; good results. Inf/Abcess present in the surg proc area at time of surgery?: No EBL: Minimal Complications: 0
[2017-07-15] MEDS ORDERED: ENALAPRILAT DIHYDRATE 1.25 MG/ML VIAL IVP PRN (17:52)
[2017-07-15] MEDS: BIMATOPROST 0.01% 2.5 ML OPHT.BTL EACHEYE SCH (20:41)
[2017-07-15] MEDS: GABAPENTIN 100 MG CAP PO SCH (21:32)
[2017-07-15] MEDS: LABETALOL HCL 100 MG TAB PO SCH (21:32)
[2017-07-16] MEDS: LABETALOL HCL 100 MG TAB PO SCH (08:12)
[2017-07-16] MEDS: IBUPROFEN 600 MG TAB PO PRN (08:12)
[2017-07-16] MEDS: ENOXAPARIN 40 MG/0.4 ML SYR SC SCH (08:12)
[2017-07-16] MEDS: CHOLECALCIFEROL VIT D3 1,000 UNITS TAB PO SCH (08:12)
[2017-07-16] MEDS: GABAPENTIN 100 MG CAP PO SCH ×2 (08:12→17:06)
[2017-07-16] MEDS: ASPIRIN 325 MG TAB PO SCH (08:12)
[2017-07-16] MEDS ORDERED: CLOPIDOGREL BISULFATE 75 MG TAB PO SCH (09:00)
[2017-07-16] MEDS: BRIMONIDINE/TIMOLOL 5 ML OPHT.BTL EACHEYE SCH (12:06)
[2017-07-16] MEDS: DORZOLAMIDE 2% OPTH DROPS EACHEYE SCH (12:06)
--- NOTE | 2017-07-16 14:12 | ASMTCMCOM ---
CM Note CM Note Notes: Pt is post op day 1 today. CM met w/ pt for dispo planning. PT is recommending that pt can return home to assisted living facility. Pt receives non skilled HC services through [facility]. CM called [facility] to let them know that pt is in the hospital. Anticipates that pt will d/c independent when medically stable. CM available for changes. Plan: Independent at [facility] Date Signed: 07/16/2017 02:11 PM Electronically Signed By:GAGE Echols
[2017-07-16 15:10] VITALS: BP 135/64; PULSE 79; RESP 18; TEMP 97.9; O2SAT 99
--- NOTE | 2017-07-17 04:59 | GDS ---
[f rep st] DISCHARGE SUMMARY HOSPITAL COURSE: The patient was admitted and underwent bilateral lower extremity debridement, as we ll as left iliac stent placement. She tolerated these well, was stable, and subsequently discharged to home in stable condition on the afternoon of the . DISCHARGE MEDICATIONS: New medications include Plavix and labetalol. All of her other home medicati ons were restarted. DISPOSITION: Home. FOLLOWUP: With your PCP within the next week to discuss your new medications, and follow up with Dr. Scruggs at the wound clinic per your usual routine. /[id number]/MODL
--- NOTE | 2017-07-17 09:29 | ASDISCHSUM ---
Discharge Information Plan Status:Home with No Needs Medically Cleared to Leave:07/15/2017 Discharge Date:07/16/2017 05:55 PM CM D/C Disposition: ADT D/C Disposition:Home, Routine, Self-Care Projected Discharge Date:07/16/2017 12:00 AM Transportation at D/C: Discharge Delay Reason: Follow-Up Date:07/16/2017 12:00 AM Discharge Slot: Final Diagnosis: Placement Information Patient Contact Information Contact Name:TROY Relationship:Daughter Address: City: [place] [facility] Phone: [facility] Code: Email: Financial Information Financial Class:Medicare Advantage Plans Primary Plan Desc:[facility] ADVANTAGE PLANS Primary Plan Number:[id number] Secondary Plan Desc: Secondary Plan Number: Assessment Information [facility] CM Progress Note CM Note CM Note Notes: Spoke w/RN, pt lives at [facility]. Will need debridement of wounds in OR, dc needs TBD, CM w/f. Date Signed: 07/14/2017 04:49 PM Electronically Signed By:Supriya Mae RN [facility] CM Progress Note CM Note CM Note Notes: Pt is post op day 1 today. CM met w/ pt for dispo planning. PT is recommending that pt can return home to assisted living facility. Pt receives non skilled HC services through [facility]. CM called [facility] to let them know that pt is in the hospital. Anticipates that pt will d/c independent when medically stable. CM available for changes. Plan: Independent at [place] Date Signed: 07/16/2017 02:11 PM Electronically Signed By:GAGE Echols Intervention Information
== END 2017-07-16 17:55 | disposition home or self-care (01) | DRG 252 ==
LOC: F3N 07:54 → F3E 12:39 → OBSVTOIN 07-14 14:53
PROVIDERS: ADMIT Surgery; ATTEND Surgery
PROC: 0JDR0ZZ Extraction of Left Foot Subcutaneous Tissue and Fascia, Open Approach (ICD-10-PCS; principal; 2017-07-13 09:45)
PROC: 0JDP0ZZ Extraction of Left Lower Leg Subcutaneous Tissue and Fascia, Open Approach (ICD-10-PCS; principal; 2017-07-13 09:45)
PROC: 067D3DZ Dilation of Left Common Iliac Vein with Intraluminal Device, Percutaneous Approach (ICD-10-PCS; 2017-07-15)
DX: I73.9 Peripheral vascular disease, unspecified (principal); L89.893 Pressure ulcer of other site, stage 3; Z85.72 Personal history of non-Hodgkin lymphomas
CPT/HCPCS: 97116-GP; 97161-GP; C1725; C1769; C1874; C1892; G0378; G8978-GP-CI; G8979-GP-CI; J0360; J0690; J1100; J1644; J1650; J2250; J2310; J2405; J2704; J3010; Q9967

== ENCOUNTER 2018-01-08 11:54 | Inpatient (IN) | payer OTHER ==
[2018-01-08] MEDS ORDERED: NS 1,000 ML IV ONE ×2 (12:08)
[2018-01-08 12:15] LABS: PLATELET COUNT 242 10^3/uL (150-400)
--- NOTE | 2018-01-08 12:21 | EDPHY ---
H & P Time Seen by Provider: 01/08/18 12:04 HPI/ROS: Chief complaint. Altered mental status HPI. 87-year-old female here with altered mental status. She was diagnosed with Hodgkin's lymphoma 2 and half years ago. She was here for biopsy of a mass near her spine. However she was confused in interventional radiology and sent to the emergency department. Her daughter says that she became confused yesterday and somewhat lethargic. Vomiting x1 today. Decreased oral intake. Sharp stabbing periumbilical pain although the patient tells me now she has no abdominal pain. Unknown fever. History of urinary tract infections. Does not sound like she has been coughing. No chest discomfort or shortness of breath. She lives in assisted living at [facility] Constitutional. Generalized weakness Eyes. no problems with vision ENT. no sore throat, no nasal drainage Cardiovascular. no chest pain Respiratory. no shortness of breath, no cough Abdominal. Abdominal pain earlier with vomiting . no problems urinating MS. no calf pain/swelling, no neck/back pain, no joint pain Skin. no rash Lymph. no swollen glands Neuro. Confusion Past Medical/Surgical History: Hodgkin's lymphoma, TIA, rule UTI, hyponatremia, hysterectomy Social History: Single, nonsmoker, no alcohol Smoking Status: Never smoked Physical Exam: General Appearance: Alert though lethargic well-developed female blood pressure 86/53 Eyes: Pupils equal and round no pallor or injection. ENT, Mouth: Mucous membranes are moist. Respiratory: There are no retractions, lungs are clear to auscultation. Cardiovascular: Regular rate and rhythm. Gastrointestinal: Abdomen is soft and nontender, no masses, bowel sounds normal. Neurological: Awake and alert, sensory and motor exams grossly normal. Skin: Warm and dry, no rashes. Musculoskeletal: Neck is supple nontender. Extremities symmetrical, full range of motion. Psychiatric: Patient is oriented X 3, there is no agitation. However patient is fairly slow to respond Constitutional: Initial Vital Signs Temperature (C) 36.7 C 01/08/18 11:55 Heart Rate 96 01/08/18 11:55 Respiratory Rate 14 01/08/18 11:55 Blood Pressure 86/53 L 01/08/18 11:55 O2 Sat (%) 97 01/08/18 11:55 O2 Delivery Mode Nasal Cannula O2 (L/minute) 2 Allergies/Adverse Reactions: Sulfa (Sulfonamide Antibiotics) Allergy (Verified 11/06/17 21:22) Other-Enter Comments Home Medications: Medication Instructions Recorded Cholecalciferol Vit D3 [Vitamin D3 5,000 units PO DAILY 02/01/17 (*)] Multivitamins [Multivitamin (*)] 1 each PO DAILY 02/01/17 Acetaminophen [Tylenol 325mg (*)] 650 mg PO Q6 PRN tab 07/16/17 Bimatoprost 0.01% [Lumigan 0.01% 1 drops EACHEYE HS #1 opht.btl 07/16/17 (*)] Brimonidine/Timolol [Combigan (*)] 1 drops EACHEYE BID #1 opht.btl 07/16/17 Dorzolamide 2% [Trusopt 2% (*)] 1 drops EACHEYE BID #1 opht.btl 07/16/17 Ascorbic Acid [Vitamin C 500 mg 500 mg PO DAILY 11/06/17 (*)] Gabapentin [Neurontin 100 MG (*)] 300 mg PO TID 11/06/17 Labetalol HCl [Trandate 100 mg (*)] 50 mg PO BID 11/06/17 Ibuprofen [Motrin (*)] 400 mg PO Q6HRS PRN #0 tab 11/09/17 amLODIPine BESYLATE [Norvasc 5 mg 5 mg PO DAILY #30 tab 11/09/17 (*)] Medical Decision Making - Diagnostics Imaging Results: Imaging Impressions Head CT 01/08/18 12:08 Impression: 1. Moderate atrophy. 2. No acute hemorrhage, hydrocephalus, or mass effect. 3. Cerebrovascular atherosclerosis. 4. No definite acute infarct. 5. Moderate microvascular ischemic gliosis. 6. Consider MRI of the brain, if there is continued clinical concern. Findings and recommendations discussed with Emergency Department physician, Dr. Gerardo Charles at 1317 hours on January 08, 2018. Final report concurs with initial preliminary interpretation. Chest X-Ray 01/08/18 14:39 Impression: Mild underlying bronchitis and possible early pneumonia or atelectasis at both lung bases. Noncontrast head CT reviewed by and discussed with is non acute Chest x-ray interpreted by me shows what appears to be a left lower lobe infiltrate. There is haziness in the left lower lobe and her previous chest x- ray was quite sharp in this area. Procedures: Sepsis workup with 2 L of saline ordered ED Course/Re-evaluation: Serial evaluations patient is stable. Serum lactate is elevated. Serum severe sepsis is declared Recheck at 1:15 a.m. And patient is more alert and interactive Repeat lactate is normal IV Levaquin I consulted and discussed case with Dr. Olvera, hospitalist, who agrees to the admission Differential Diagnosis: I considered intracranial bleeding, CVA, sepsis, pneumonia, UTI. Appears the patient has significant dehydration as well as probable left lower lobe pneumonia - Data Points Laboratory Results: Laboratory Results 01/08/18 12:00 01/08/18 12:00 01/08/18 01/08/18 01/08/18 14:18 13:55 12:09 WBC RBC Hgb Hct MCV MCH MCHC RDW Plt Count MPV Neut % (Auto) Lymph % (Auto) [place] % (Auto) Eos % (Auto) Baso % (Auto) Nucleat RBC Rel Count Absolute Neuts (auto) Absolute Lymphs (auto) Absolute Monos (auto) Absolute Eos (auto) Absolute Basos (auto) Absolute Nucleated RBC Immature Gran % Immature Gran # Platelet Estimate PT INR APTT VBG Lactic Acid 1.8 mmol/L mmol/L (0.7-2.1) Sodium Potassium Chloride Carbon Dioxide Anion Gap BUN Creatinine Estimated GFR Glucose POC Lactic Acid Deshawn 2.2 mmol/L H mmol/L (0.7-2.1) Calcium Total Bilirubin Urine Color JOSUE Urine Appearance HAZY Urine pH 5.0 (5.0-7.5) Ur Specific [place] 1.024 (1.002-1.030) Urine Protein 1+ H (NEGATIVE) Urine Ketones NEGATIVE (NEGATIVE) Urine Blood NEGATIVE (NEGATIVE) Urine Nitrate NEGATIVE (NEGATIVE) Urine Bilirubin NEGATIVE (NEGATIVE) Urine Urobilinogen 2.0 EU H EU (0.2-1.0) Ur Leukocyte Esterase NEGATIVE (NEGATIVE) Urine RBC NONE SEEN /hpf /hpf (0-3) Urine WBC 3-5 /hpf H /hpf (0-3) Ur Epithelial Cells TRACE /lpf /lpf (NONE-1+) Hyaline Casts 15-25 /lpf H /lpf (0-1) Urine Mucus TRACE /lpf /lpf (NONE-1+) Urine Glucose 1+ H (NEGATIVE) 01/08/18 01/08/18 01/08/18 12:00 12:00 12:00 WBC 12.02 10^3/uL H 10^3/uL (3.80-9.50) RBC 4.70 10^6/uL 10^6/uL (4.18-5.33) Hgb 12.5 g/dL L g/dL (12.6-16.3) Hct 38.0 % % (38.0-47.0) MCV 80.9 fL L fL (81.5-99.8) MCH 26.6 pg L pg (27.9-34.1) MCHC 32.9 g/dL g/dL (32.4-36.7) RDW 17.2 % H % (11.5-15.2) Plt Count 242 10^3/uL 10^3/uL (150-400) MPV 10.6 fL fL (8.7-11.7) Neut % (Auto) 90.9 % H % (39.3-74.2) Lymph % (Auto) 4.2 % L % (15.0-45.0) [place] % (Auto) 4.2 % L % (4.5-13.0) Eos % (Auto) 0.0 % L % (0.6-7.6) Baso % (Auto) 0.2 % L % (0.3-1.7) Nucleat RBC Rel Count 0.0 % % (0.0-0.2) Absolute Neuts (auto) 10.92 10^3/uL H 10^3/uL (1.70-6.50) Absolute Lymphs (auto) 0.51 10^3/uL L 10^3/uL (1.00-3.00) Absolute Monos (auto) 0.51 10^3/uL 10^3/uL (0.30-0.80) Absolute Eos (auto) 0.00 10^3/uL L 10^3/uL (0.03-0.40) Absolute Basos (auto) 0.02 10^3/uL 10^3/uL (0.02-0.10) Absolute Nucleated RBC 0.00 10^3/uL 10^3/uL (0-0.01) Immature Gran % 0.5 % % (0.0-1.1) Immature Gran # 0.06 10^3/uL 10^3/uL (0.00-0.10) Platelet Estimate Pending PT 14.3 SEC SEC (12.0-15.0) INR 1.09 (0.83-1.16) APTT 26.4 SEC SEC (23.0-38.0) VBG Lactic Acid Sodium 134 mEq/L L mEq/L (135-145) Potassium 5.2 mEq/L H mEq/L (3.3-5.0) Chloride 99 mEq/L mEq/L (97-110) Carbon Dioxide 19 mEq/l L mEq/l (22-31) Anion Gap 16 mEq/L mEq/L (8-16) BUN 46 mg/dL H mg/dL (7-23) Creatinine 1.4 mg/dL H mg/dL (0.6-1.0) Estimated GFR 36 Glucose 314 mg/dL H mg/dL (70-100) POC Lactic Acid Deshawn Calcium 8.9 mg/dL mg/dL (8.5-10.4) Total Bilirubin 1.0 mg/dL mg/dL (0.1-1.4) Urine Color Urine Appearance Urine pH Ur Specific [place] Urine Protein Urine Ketones Urine Blood Urine Nitrate Urine Bilirubin Urine Urobilinogen Ur Leukocyte Esterase Urine RBC Urine WBC Ur Epithelial Cells Hyaline Casts Urine Mucus Urine Glucose Medications Given: Discontinued Medications Sodium Chloride (Ns) 1,000 mls @ 0 mls/hr IV EDNOW ONE; Wide Open PRN Reason: Protocol Stop: 01/08/18 12:09 Last Admin: 01/08/18 12:13 Dose: 1,000 mls Sodium Chloride (Ns) 1,000 mls @ 0 mls/hr IV EDNOW ONE; Wide Open PRN Reason: Protocol Stop: 01/08/18 12:09 Last Admin: 01/08/18 13:12 Dose: Not Given Sodium Chloride (Ns) 1,700 mls @ 3,400 mls/hr 30 ml/kg infuse over 30 min ( 1700 ml) IV EDNOW ONE PRN Reason: Protocol Stop: 01/08/18 13:17 Last Admin: 01/08/18 13:12 Dose: 1,700 mls Point of Care Test Results: Blood Gas/Lactic Acid-Venous 01/08/18 12:09 POC Lactic Acid Deshawn 2.2 mmol/L H mmol/L (0.7-2.1) Departure - Departure Disposition: [facility] Inpatient Acute Clinical Impression: Pneumonia Qualifiers: Pneumonia type: due to unspecified organism Laterality: left Lung location: lower lobe of lung Qualified Code(s): J18.1 - Lobar pneumonia, unspecified organism Condition: Fair Instructions: [facility] Provider or Procedure Specific Instructions Referrals: Maris Davies MD [Primary Care Provider] - As per Instructions
[2018-01-08 12:38] LABS: INR 1.09 (0.83-1.16); PROTIME(PATIENT) 14.3 SEC (12.0-15.0)
[2018-01-08] MEDS ORDERED: NS 1,700 ML IV ONE (12:48)
[2018-01-08] MEDS ORDERED: NS 1,000 ML IV SCH (18:15)
[2018-01-08] MEDS ORDERED: traMADol 50 MG TAB PO PRN (18:21)
[2018-01-08] MEDS ORDERED: ONDANSETRON 4 MG/2 ML VIAL IVP PRN (18:21)
[2018-01-08] MEDS ORDERED: HYDROmorphONE/DILAUDID 1 MG/ML INJ IVP PRN (18:21)
[2018-01-08] MEDS ORDERED: D50W 25 GM/50 ML SYR IVP PRN (18:35)
--- NOTE | 2018-01-08 19:25 | GHP ---
[f rep st] HISTORY AND PHYSICAL DATE OF ADMISSION: 01/08/2018 CHIEF COMPLAINT: Confusion. HISTORY: The patient is an 87-year-old female who has Hodgkin lymphoma, following with Dr. Amador clark. Recently found to have a mass at L3-L4 extending into her iliopsoas. She has undergone radiat ion treatment and steroids to treat the mass. Per Dr. Bernard, there were some air bubbles within the iliopsoas component, and there was concern that there may be an element of infection. He ordered an outpatient biopsy in Interventional Radiology today. When she presented to IR, she was noted to be v alessia confused and lethargic, and IR did not perform the procedure and sent her to the emergency room. According to her daughter, she has had increased confusion for the last 2 days. She vomited this mor kasi, which is not usual for her. She has had very poor intake for the last 2 days. She has had no cough or fever. She recently had diarrhea and now still has some ongoing incontinence of stool. She describes a new abdominal pain for the last 2 days that is periumbilical. PAST MEDICAL HISTORY: 1. Hypertension. 2. TIA. 3. Peripheral vascular disease, status post stent. 4. Hodgkin lymphoma. 5. Glaucoma. 6. Lower extremity wound, status post debridement. 7. L3-L4 and iliopsoas mass versus abscess, as above. PAST SURGICAL HISTORY: Cholecystectomy, appendectomy. MEDICATIONS: Please see computer record for full detailed list. ALLERGIES: Sulfa. SOCIAL HISTORY: No smoking. Occasional alcohol. Lives in independent at [place]. REVIEW OF SYSTEMS: Complete review of systems obtained. Review of systems is negative regarding con stitutional, HEENT, GI, pulmonary, cardiovascular, , hematology, skin, endocrine, psych, except for positives as in HPI. FAMILY HISTORY: Reviewed and noncontributory to presenting complaint. PHYSICAL EXAMINATION: GENERAL: Well-developed, well-nourished female, in no acute distress. VITAL SIGNS: Temp 36.7, pulse 88, blood pressure 119/62, saturating 97% 2. EYES: Normal conjunctivae. P upils reactive to light. ENT: Normal ears and nose. Hearing intact. Normal lips and teeth. Oroph arynx moist. NECK: Trachea midline. No thyromegaly. CHEST: Normal respiratory effort. LUNGS: C lear to auscultation bilaterally. CARDIOVASCULAR: Regular rhythm. No murmur. No lower extremity e ananda. ABDOMEN: Soft, distended, tender to palpation without rebound or guarding. No hepatosplenome raciel. SKIN: Warm, dry, intact. No rash. MUSCULOSKELETAL: No cyanosis or clubbing. Strength 5/5 in upper and lower extremities. NEURO: Cranial nerves intact. Normal sensation to light touch. PS YCH: Alert and oriented x3. Normal mood and affect. Normal judgment and insight. Normal memory. LABORATORY DATA: White count 12.02, hematocrit 38.0, platelets 242. Sodium 134, potassium 5.2, chlo ride 99, bicarb 19, BUN 46, creatinine 1.4, glucose 314. Lactate is 1.8 after hydration, 2.2 prior t o hydration. Head CT shows atrophy. Chest x-ray shows some possible early pneumonia versus atelecta sis. This case was discussed with Dr. Amador Bernard regarding findings on outpatient imaging studies . ASSESSMENT/PLAN: 1. Metabolic encephalopathy. I think this is due to dehydration versus infection. 2. Iliopsoas mass versus abscess. I have spoken with Dr. Bernard. We will have Interventional Radiol ogy proceed with the procedure that was planned today. We will have them stick a needle in it and as sess whether or not it is tumor and/or infection. She does have worsening abdominal pain over the la st 2 days, so I think this does warrant repeat CT scan, which we will order for tonight. 3. Acute renal failure. She has already received a sepsis bolus in the emergency room and anticipat e this will improve. 4. Hodgkin's. Recent XRT and chemotherapy to the mass at L3-L4. Dr. Bernard will see her in consulta tion tomorrow. 5. Lower extremity wounds, status post debridement. She follows with Dr. Scruggs. Will consult the [facility]. 6. Peripheral vascular disease, status post stent. Interestingly, she is not on a statin or antipla telet drug. CODE STATUS: DNR. ADMISSION STATUS: Will admit to inpatient, as she is medically complex. Anticipate greater than 2 m idnights. DEEP VENOUS THROMBOSIS PROPHYLAXIS: She is high risk. Once procedures are complete, prophylactic Lo venox can be initiated. /[id number]/MODL
[2018-01-08] MEDS ORDERED: IOPAMIDOL (ISOVUE-300) 100 ML BTL ONE (20:04)
[2018-01-08] MEDS: LABETALOL HCL 100 MG TAB PO SCH (21:26)
[2018-01-08] MEDS: GABAPENTIN 100 MG CAP PO SCH (21:27)
[2018-01-08] MEDS: INSULIN REGULAR HUMAN 100 UNIT/ML UNIT SC SCH (21:42)
[2018-01-08] MEDS: DORZOLAMIDE 2% OPTH DROPS EACHEYE SCH (22:10)
[2018-01-08] MEDS: BIMATOPROST 0.01% 2.5 ML OPHT.BTL EACHEYE SCH (22:11)
[2018-01-08] MEDS: BRIMONIDINE/TIMOLOL 5 ML OPHT.BTL EACHEYE SCH (22:11)
[2018-01-09 05:22] LABS: PLATELET COUNT 158 10^3/uL (150-400)
[2018-01-09] MEDS: INSULIN REGULAR HUMAN 100 UNIT/ML UNIT SC SCH ×4 (07:40→23:48)
[2018-01-09] MEDS ORDERED: amLODIPine BESYLATE 5 MG TAB PO SCH (09:00)
[2018-01-09] MEDS ORDERED: ENOXAPARIN 30 MG/0.3 ML SYR SC SCH (09:00)
[2018-01-09] MEDS: ASCORBIC ACID 500 MG TAB PO SCH (09:07)
[2018-01-09] MEDS: GABAPENTIN 100 MG CAP PO SCH ×3 (09:07→22:04)
[2018-01-09] MEDS: DORZOLAMIDE 2% OPTH DROPS EACHEYE SCH ×2 (09:08→20:18)
[2018-01-09] MEDS: CHOLECALCIFEROL VIT D3 1,000 UNITS TAB PO SCH (09:08)
[2018-01-09] MEDS: BRIMONIDINE/TIMOLOL 5 ML OPHT.BTL EACHEYE SCH ×2 (09:08→20:18)
--- NOTE | 2018-01-09 09:38 | CPEKG ---
Heart Rate: 86 RR Interval: 698 P-R Interval: 180 QRSD Interval: 82 QT Interval: 388 QTC Interval: 464 P [place]: 45 QRS [place]: -8 T Wave [place]: 84 EKG Severity - NORMAL ECG - EKG Impression: SINUS RHYTHM EKG Impression: COMPARED WITH 11/06/2017, CHANGE IN R-WAVE PROGRESSION. CONSIDER LEAD PLACEMENT EKG Impression: DIFFERENCE Electronically Signed By: Jocelyn Michael 10-Jan-2018 08:24:50
--- NOTE | 2018-01-09 10:52 | ASMTCASEMG ---
Living Arrangements What is your living Answers: Alone arrangement? Who do you live with? Type Of Residence What kind of residence do Answers: House you live in? Discharge Plan Comments Coordination Status Comments Notes: CM spoke to CAMILLA Mcgregor regarding d/c POC. Pt is a 87 y/o female admitted for pneumonia and dehydration. Therapies have been ordered and awaiting recommendations. Needs are TBD at this time. CM to follow. Plan: TBD Date Signed: 01/09/2018 10:51 AM Electronically Signed By:GAGE Echols
--- NOTE | 2018-01-09 11:09 | GCON ---
[f rep st] CONSULTATION HISTORY OF PRESENT ILLNESS: The patient is a very pleasant 87-year-old female who has a history of H odgkin disease, admitted with flank pain and possible iliopsoas abscess versus recurrence of her dise ase. To review, she was diagnosed with Hodgkin's disease in September of 2015. She noted a lump on t he inner aspect of her left thigh. This was a painful, 3-4 cm nodule, and biopsy reviewed by Dr. Lucie He at [facility], was felt to be consistent with classical Hodgkin lymphoma. Initial staging was fel t to be IIA, with adenopathy in the left pelvis and proximal thigh. There was equivocal uptake in a subcentimeter periaortic lymph node. She was treated with 2 cycles of ABVD with only relatively mild response and poor tolerance. She then underwent radiation therapy in the summer to the left iliac and inguinal femoral region. This was complicated by lower extremity edema. She was since fo llowed. By November of 2016, PET scan showed increasing adenopathy in the chest between the esophagus a nd thoracic aorta and increasing adenopathy in the left periaortic region and the aortic bifurcation, with a mass displacing the left iliopsoas muscle laterally, measuring 50 x 39 mm. At that time, she was started on brentuximab vedotin and received 6 cycles from November of 2016 to March 2017. She had a good clinical response on PET scan, but had a developing neuropathy and elected to stop treatment. She has since been followed. She has had issues with recurrent wounds on her lower extremity of unclear etiology. Sometime in 2016, she had an angioplasty performed with placement of a stent across an area of stenosis involvi ng the entire left common iliac vein. Recently, she has been having increasing pain in her left pelv is, particularly with ambulation. 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 This is felt to be a recurrence of her Hodgkin disease, and she was started on dexamethasone with immediate resolution of her pain, and she was referred to Radiation Therapy and underwent 5 radiation treatments to the area. She had an abdom inopelvic CT scan performed as systemic staging for her Hodgkin disease on 01/03. This showed the il iopsoas mass, but there were some air bubbles noted in the mass. It was unclear whether this was rel ated to infection, tumor necrosis, or possibly gas from a disc. There was concern about a possible i nfection, and she was scheduled for a biopsy of the iliac mass yesterday. However, she had increasin g pain and also some diarrhea, and was admitted last night for evaluation. Currently, she has no katia n at rest. She feels her abdomen is somewhat distended. PAST MEDICAL HISTORY: Significant for hypertension, TIA, stenosis of the left femoral vein, Hodgkin, glaucoma. PAST SURGICAL HISTORY: Include cholecystectomy and appendectomy. SOCIAL HISTORY: She is a nonsmoker. She lives in [place]. REVIEW OF SYSTEMS: Negative, as discussed above. PHYSICAL EXAMINATION: GENERAL: She is a pleasant, alert female. VITAL SIGNS: She is afebrile. Bl ood pressure 119/62. EYES: She is not icteric. LUNGS: Clear. CARDIAC: Unremarkable. ABDOMEN: Normal bowel sounds. It is somewhat distended. SKIN: Shows a bandage over the left lower extremity . NEUROLOGIC: She is alert and oriented. LABORATORY DATA: Admission white count is 12,000, hematocrit 38, platelets 242. Sodium 134, potassi um 5.2. Creatinine is 1.4. Head CT shows atrophy. Chest x-ray shows possible early pneumonia versu s atelectasis. A CT of the abdomen and pelvis performed last night was compared to the study done 6 days ago. This showed new small bowel distention suggesting ileus or less likely early partial bowel obstruction. There is a stable size in terms of the left psoas fluid collection, although there was increased air within it, and there was felt to be some associated fluid collection. IMPRESSION: Iliopsoas mass. I think the differential is recurrent Hodgkin disease versus some type of iliopsoas abscess. This could possibly be in the context of necrotic tumor. PLAN: 1. Plan at this time is to aspirate and send for the usual studies, including culture and Gram stain . If this is an abscess, an Infectious Disease consultation would be indicated. 2. Hodgkin disease. The status of her disease is a bit unclear. We are holding off on additional t herapy at this time. She remains a candidate for a number of additional treatments, either resumptio n of brentuximab vedotin or anti-PD1 immunotherapy. 3. Ileus, possibly related to her abdominal process. Will need to follow at this point in time. [facility] [place] [facility] will follow with you. /[id number]/MODL
--- NOTE | 2018-01-09 12:22 | PDMN ---
Medical Necessity Medical necessity: MCG: M200 ileus: 2 days; CT shows new sm. bowel distention suggesting ileus- pt with metabolic encephalopathy, dehydration vs. infection, Iliopsoas mass vs abscess, ARF with sepsis bolus in ED, HX of hodgkins with recent XRT and chemo. oncology consult pend. PT is NPO with anticipated > 2 midnights ongoing med nec care
[2018-01-09] MEDS ORDERED: NALOXONE HCL 0.4 MG/ML INJ ONE (13:59)
[2018-01-09] MEDS ORDERED: fentaNYL 100 MCG/2 ML INJ ONE (13:59)
[2018-01-09] MEDS ORDERED: MEPERIDINE 25 MG/ML SYR IVP PRN (14:14)
[2018-01-09] MEDS ORDERED: NALOXONE HCL 0.4 MG/ML INJ IVP PRN (14:14)
[2018-01-09] MEDS ORDERED: fentaNYL 100 MCG/2 ML INJ IVP PRN (14:14)
[2018-01-09] MEDS ORDERED: NS 1,000 ML IV SCH (14:15)
[2018-01-09] MEDS ORDERED: LIDOCAINE 1% 300 MG/30 ML SDV ONE (14:16)
--- NOTE | 2018-01-09 14:26 | PDPROPOC ---
Sedation Plan of Care Sedation Plan of Care: vital signs stable, mental status noted, patient educated of risks, benefits, alternatives, patient can tolerate sedation ASA Classification: ASA 3 Planned drugs: fentanyl Mallampati Score: Class 3 Mallampati Reference Image:
--- NOTE | 2018-01-09 14:26 | PDGENHP ---
History & Physical Chief Complaint: left psoas lesion on CT History of Present Illness: h/o lymphoma. admitted yesterday for ams. Relevant Physical Exam: no focal deficits. afebrile. Cardiorespiratory Assessment: rrr, nl wob
--- NOTE | 2018-01-09 15:26 | PDRADPN ---
Radiology Procedure Note Date of Procedure: 01/09/18 Radiologist: Leonel Gonzales Anesthesia: IV Sedation, Local (Specify) Pre-op Diagnosis: left psoas phlegmon Post-op Diagnosis: same Indication: dx Procedure: CT guided needle aspiration Finding(s): 18G/20G coaxial needle set advanced into medial left psoas lesion. small purulent fluid aspirate obtained. consistency of phlegmon, not yet an organized abscess. Inf/Abcess present in the surg proc area at time of surgery?: Yes Depth: Deep Incisional (Fascial) (closely involving left psoas major. the L5 vertebral body and L4/5 disc space and possibly the left common iliac artery and stented left common iliac vein.) EBL: Minimal Complications: none Specimen(s): ~2mL pink, cloudy fluid submitted in saline and dry container for culture.
[2018-01-09] MEDS: oxyCODONE IR 5 MG TAB PO PRN (17:02)
--- NOTE | 2018-01-09 18:05 | HOSPPROG ---
Hospitalist Progress Note Assessment/Plan: Assessment: 65-year-old female presents with sepsis secondary to iliopsoas abscess complicated by acute ileus Plan: 1. Sepsis. Evidenced by 3/3 qSOFA score (hypotension, tachypnea, encephalopathy ) with autonomic dysregulation in the setting of infection and end-organ failure notably lactic acidosis, acute kidney injury, meeting all ICDS-3 criteria -status post IV fluids, begin empiric IV antibiotics 2. Left iliopsoas abscess. Acute, new problem this provider, further workup indicated. 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 Jeanette Vela, infectious Disease consultation appreciated, initiate 1 g vancomycin daily 3. Acute kidney injury. Most likely secondary to renal hypoperfusion in the setting of sepsis, received IV fluids, creatinine level down trending, continue monitor 4. Acute metabolic acidosis. Secondary to sepsis, clearing with IV fluids 5. Hodgkin's lymphoma. Patient with L3-L4 mass, receiving radiation therapy, appreciate ongoing oncology consultation 6. Hypertension. Chronic, hold patient's home antihypertensives given hypotension 7. Acute encephalopathy. Evidenced by global brain dysfunction characterized as confusion, disorientation, these acute changes from her baseline were her primary reason for presentation on 01/08, currently improving with stabilization of her blood pressure, most likely secondary to the metabolic effects of acute kidney injury, metabolic acidosis, and toxic effects of infection 8. Acute atelectasis. Most likely secondary to poor diaphragmatic movement comma incentive spirometer, present on chest x-ray, personally interpreted 9. Acute ileus. Most likely secondary to her localized inflammation from left iliopsoas abscess, resulting in nausea and vomiting, clear liquid diet and advance as tolerates Diet. Clear liquid advance as tolerates Prophylaxis. High risk patient, Lovenox 40 Code. Do not resuscitate Disposition. Anticipated discharge uncertain this time, remains clinically on resolved and on IV antibiotics. Subjective: hungry, mild ongoing left side abdominal pain, feels less confused today Objective: Vital Signs Temp Pulse Resp BP Pulse Ox 36.6 C 83 18 129/73 H 95 01/09/18 17:59 01/09/18 17:59 01/09/18 17:59 06/06/18 17:59 01/09/18 17:59 Microbiology 01/08/18 15:30 Gastrointestinal Tract Panel (PCR) - Final Stool No Organism Detected Laboratory Results 01/09/18 04:25 01/09/18 04:25 01/08/18 01/09/18 01/10/18 05:59 05:59 05:59 Intake Total 2840 549 Balance 2840 549 PT 14.3 SEC (12.0-15.0) 01/08/18 12:00 INR 1.09 (0.83-1.16) 01/08/18 12:00 - Physical Exam Constitutional: no apparent distress, chronically ill appearing, No not in pain (mild), No uncomfortable Cardiovascular: regular rate and rhythym, no murmur, rub, or gallop, No edema Respiratory: inspiratory crackles (bilat bases), No reduced air movement, No expiratory wheeze, No bronchial breath sounds, No respiratory distress Gastrointestinal: tenderness (L hemidiaphragm), No normoactive bowel sounds ( hypoactive bowel sounds), No guarding, No distension Neurologic: AAOx3, sensation intact bilaterally, No weakness Psychiatric: interacting appropriately, not anxious, flat affect, other ( concentration 7/7), No agitated ICD10 Worksheet Patient Problems: Problems Problem Status Onset Pneumonia Acute Confusion Acute Confusion Acute Encephalopathy acute Acute Hypertension Acute Hyponatremia Acute UTI (urinary tract infection) Acute Word finding difficulty Acute
[2018-01-09] MEDS: VANCOMYCIN HCL/NORMAL SALINE 250 ML IV SCH (18:46)
[2018-01-09] MEDS: NS W/ 20 KCl/L 1,000 ML IV SCH (18:46)
[2018-01-09] MEDS: BIMATOPROST 0.01% 2.5 ML OPHT.BTL EACHEYE SCH (20:18)
[2018-01-09] MEDS: LABETALOL HCL 100 MG TAB PO SCH (22:07)
[2018-01-10 05:24] LABS: PLATELET COUNT 161 10^3/uL (150-400)
[2018-01-10] MEDS: NS W/ 20 KCl/L 1,000 ML IV SCH (05:48)
[2018-01-10] MEDS: CHOLECALCIFEROL VIT D3 1,000 UNITS TAB PO SCH (08:19)
[2018-01-10] MEDS: INSULIN REGULAR HUMAN 100 UNIT/ML UNIT SC SCH ×4 (09:10→22:02)
[2018-01-10] MEDS: ENOXAPARIN 30 MG/0.3 ML SYR SC SCH (09:11)
[2018-01-10] MEDS: LABETALOL HCL 100 MG TAB PO SCH ×2 (09:12→20:44)
[2018-01-10] MEDS: ASCORBIC ACID 500 MG TAB PO SCH (09:12)
[2018-01-10] MEDS: GABAPENTIN 100 MG CAP PO SCH ×3 (09:12→20:45)
[2018-01-10] MEDS: DORZOLAMIDE 2% OPTH DROPS EACHEYE SCH ×2 (09:13→20:43)
[2018-01-10] MEDS: BRIMONIDINE/TIMOLOL 5 ML OPHT.BTL EACHEYE SCH ×2 (09:14→20:43)
[2018-01-10] MEDS: ACETAMINOPHEN 325 MG TAB PO PRN ×2 (10:57→20:45)
--- NOTE | 2018-01-10 11:25 | GCON ---
[f rep st] CONSULTATION INFECTIOUS DISEASE CONSULTATION DATE OF CONSULTATION: 01/10/2018 PHYSICIAN REQUESTING CONSULTATION: Talib Morales. REASON FOR CONSULTATION: Possible psoas abscess. HPI: [id number]-old woman diagnosed with Hodgkin's lymphoma in 2016, who has had a variety of therapies for her Hodgkin's lymphoma including ABVD, radiation. 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 The patient had a CT scan on 01/03, that showed some air bubbles within the mass and this was reconfirmed on admission to the hospital on 01/08/2018. The patient underwent aspiration of this small air-fluid pocket in the left psoas with air that revealed some cloudy fluid. Gram stain of the fluid was negative for organisms. Upon admission on 01/08, the patient also had blood cultures drawn and patient was given 1 dose of IV Levaquin prior to aspiration of this area. The patient is a poor historian, but her daughter is at bedside and reports the patient had increased irritability starting on January 04, and she noticed cognitive deficits by January 06, and patient was admitted on the . They deny fevers, chills, night sweats. She describes left buttock and left leg pain. The patient also is noted to have some wounds on her left posterior calf of unclear etiology that are being managed by wound healing. Today, patient reports feeling better and her daughter endorses that patient is close to being back to her baseline cognitive status. PAST MEDICAL HISTORY: 1. Hypertension. 2. TIA. 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 4. Hodgkin lymphoma. 5. Glaucoma. 6. 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 PAST SURGICAL HISTORY: Cholecystectomy, appendectomy. SOCIAL HISTORY: Patient had 2 children, 1 is present. She has been in [place] 62 years. She is originally from [place]. 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 She is also previously a [employer] volunteer. No international travel for over 10 years. No tobacco. FAMILY HISTORY: Positive for cancer in her grandmother. ALLERGIES: Sulfa caused her legs to quit working 8 months ago. MEDICATIONS: The patient received 1 dose of Levaquin in the emergency room and was started on vancomycin 1 g IV daily, 01/09. She is also on vitamin C, Lumigan eyedrops, Combigan eyedrops, vitamin D, Trusopt 2% eyedrops, Lovenox, gabapentin 300 mg t.i.d., Dilaudid as needed, insulin sliding scale, labetalol 50 mg twice daily, oxycodone as needed, Zofran as needed, Ultram as needed. REVIEW OF SYSTEMS: Patient is complaining of multiple BM's daily that are loose without associated abdominal pain. A complete 10-point review of systems was performed and is negative except as mentioned in the HPI. PHYSICAL EXAM: VITAL SIGNS: Blood pressure 153/73, heart rate 98, saturation 88% to 98% on room air. The patient has a respiratory rate of 14. T max and current 37.5. GENERAL: This is an elderly woman sitting up in a chair, no acute distress. HEENT: No conjunctival hemorrhages. No jaundice. Oropharynx , fair dentition. Moist mucous membranes. No oral ulcerations or exudates. The patient has mild hirsutism. NECK: Supple. No lymphadenopathy. CARDIOVASCULAR: Regular rate. No murmur. CHEST: Clear to auscultation bilaterally. ABDOMEN: Mildly distended, nontender. Bowel sounds were present. EXTREMITIES: The patient has some wounds in her left posterior calf with dressings that cannot be removed, but no obvious erythema was noted taking dressings down to minimal coverage. She also has a small ulceration on the right dorsum of her foot without surrounding cellulitis. BACK: Exam showed no pinpoint tenderness throughout her back or flanks. NEUROLOGICAL: The patient was moving. She had some generalized weakness, but no focal deficits. SKIN: No abnormalities except with limited to the wounds on her lower extremities. LABORATORY: White count today 8.7, 12 on admission; 77% neutrophils; 14% bands ; hematocrit 27, platelets 161. Creatinine is 0.8. Total bilirubin 0.4, AST 11 , ALT 26, alkaline phosphatase 46, albumin 2.0, LDH 307. Microbiology: Blood cultures on 01/08/2018 are no growth to date. Patient had a GI panel that was negative. Aspiration from psoas abscess on the left, 01/09/2018, showed 1+ PMN' s, no organisms. IMAGING: CT abdomen and pelvis was personally reviewed by me, which showed bibasilar consolidation and ground-glass opacities, possibly consistent with aspiration. Small air fluid pocket associated with the psoas, which was drained yesterday, as per HPI. ASSESSMENT AND PLAN: This is an 87-year-old woman who presented to the emergency room with altered mental status and mild leukocytosis, admitted for evaluation of source of sepsis. Currently, potential differential diagnoses includes aspiration pneumonia, although patient with no significant hypoxia, as well as a possible small psoas abscess on the left side associated with the prior location of her malignancy. Patient is on empiric IV vancomycin, directed at most likely etiologies of psoas abscess including Streptococcus and Staphylococcus Vs. non-infectious. 1. continue to follow microbiologic data including blood cultures and psoas abscess culture. 2. We will adjust antibiotic therapy based on microbiologic data. 3. Duration of antibiotic therapy unclear at this point due to additional evidence for definitive diagnosis. 4. Dose vancomycin 1 g IV daily based on weight and creatinine clearance. Will check a trough before the 4th dose. Thank you for this consultation. We will continue to see on a daily basis. Greater than 70 minutes spent on this patients care, greater than 50% of time spent counseling, educating, and coordinating care regarding the above mentioned plan. /[id number]/MODL MTDD
--- NOTE | 2018-01-10 13:57 | WOCRNPDOC ---
WOCRN Advanced Assessment Note - Skin Integrity Problem, Advanced Assess Right Lateral Dorsal Foot Dressing Type: Allevyn Life Dressing Description: Clean/Dry, Intact Exudate Amount: Minimal Exudate Color: Yellow Exudate Characteristic(s): Cloudy, Serous, Thick (90%) Integumentary Issue Intervention: Visualized Under Dressing, Hydrogel Applied Rimma Wound Tissue: Blanching, Erythema, Swollen, Painful/Tender Rimma Wound Swelling: Mild Wound Bed Color: [place], Red, Yellow Wound Bed Constitution: Red/[place] - Non Granular Tissue (10%), Adhered Slough Site Odor: Slight, Foul Site Measurement - Head-to-Toe Length X Width X Depth (cm): 0.7x0.4x0.1 Skin Integrity Problem Comment: Cleaned wound with normal saline, and removed small amount of liquid drainage. Unable to visualize wound bed due to adhered slough. According to CAMILLA Mcgregor, patient's daughter said that the injury was trauma related from hitting her leg against something prior to admission to hospital, and that the wound is smaller than it had been before. Wound gel reapplied and covered with allevyn life. CAMILLA Mcgregor in room for assessment. Will round again next week.
--- NOTE | 2018-01-10 13:58 | ASMTCMCOM ---
CM Note CM Note Notes: Met with patient and her daughter. Therapies are recommending SNF with rehab at this time. Patient's daughter preference would be [facility]. Referral placed in allscripts. CM to follow Plan: to SNF [facility] when medically cleared for discharge. Date Signed: 01/10/2018 01:58 PM Electronically Signed By:Radha Lanza RN
--- NOTE | 2018-01-10 14:13 | SOAPPROG ---
SOAP Progress Note Assessment/Plan: Assessment: 1. Hodgkin's disease 2. iliopsoas abscess 3.ileus Plan:Continue antibiotics per ID, await cultures 01/10/18 14:10 Subjective: Feels ok, some pain left leg Objective: Vital Signs Temp Pulse Resp BP Pulse Ox 98 F 78 16 109/57 L 94 01/10/18 12:00 01/10/18 12:00 01/10/18 12:00 01/10/18 12:00 01/10/18 12:00 Microbiology 01/09/18 15:43 Gram Stain - Final Hip - Tissue Laboratory Results 01/10/18 04:29 01/10/18 04:29 01/09/18 01/10/18 01/11/18 05:59 05:59 05:59 Intake Total 2840 1704 Output Total 1 Balance 2840 1703 PT 14.3 SEC (12.0-15.0) 01/08/18 12:00 INR 1.09 (0.83-1.16) 01/08/18 12:00 ICD10 Worksheet Patient Problems: Problems Problem Status Onset Pneumonia Acute Confusion Acute Confusion Acute Encephalopathy acute Acute Hypertension Acute Hyponatremia Acute UTI (urinary tract infection) Acute Word finding difficulty Acute
--- NOTE | 2018-01-10 17:19 | HOSPPROG ---
Hospitalist Progress Note Assessment/Plan: Assessment: 65-year-old female presents with sepsis secondary to iliopsoas abscess complicated by acute ileus Plan: 1. Sepsis. POA. Evidenced by 3/3 qSOFA score (hypotension, tachypnea, encephalopathy) with autonomic dysregulation in the setting of infection and end -organ failure notably lactic acidosis, acute kidney injury, meeting all ICDS-3 criteria -status post IV fluids, IV abx 2. Left iliopsoas abscess. POA. Acute, unclear whether this has evolved status post radiation to the left lumbar spine malignant mass, radiology reports that the biopsied area is most certainly infectious appearing -discussed with Dr. Jeanette Vela, we agree to continue w/ IV vanco daily pending Cx results 3. Acute kidney injury. Most likely secondary to renal hypoperfusion in the setting of sepsis, received IV fluids, creatinine level down trending, continue monitor 4. Acute metabolic acidosis. Secondary to sepsis, clearing with IV fluids 5. Hodgkin's lymphoma. Patient with L3-L4 mass, receiving radiation therapy, appreciate ongoing oncology consultation 6. Hypertension. Chronic, hold patient's home antihypertensives given hypotension -cont bblocker, reintroduce others tomorrow 7. Acute encephalopathy. Evidenced by global brain dysfunction characterized as confusion, disorientation, these acute changes from her baseline were her primary reason for presentation on 01/08, currently improving with stabilization of her blood pressure, most likely secondary to the metabolic effects of acute kidney injury, metabolic acidosis, and toxic effects of infection -some ongoing cog impairment presently, but improving w/ tx of above -melatonin HS 8. Acute atelectasis. Counseled patient and daughter to use IS, ambulate w/ assist 9. Acute ileus. Most likely secondary to her localized inflammation from left iliopsoas abscess, currently w/ liquid stool but ongoing distension -given absence of pain and active bowel sounds, hold on x-ray Diet. Regular Prophylaxis. High risk patient, Lovenox 40 Code. Do not resuscitate Disposition. Anticipated discharge 01/11, remains clinically on resolved and on IV antibiotics awaiting speciation and sensitivity Subjective: patient and daughter report ongoing assist w/ ADLs, liquid stool Objective: Vital Signs Temp Pulse Resp BP Pulse Ox 36.7 C 73 16 109/57 L 91 L 01/10/18 15:53 01/10/18 15:53 01/10/18 15:53 01/10/18 12:00 01/10/18 15:53 Microbiology 01/09/18 15:43 Gram Stain - Final Hip - Tissue Laboratory Results 01/10/18 04:29 01/10/18 04:29 01/09/18 01/10/18 01/11/18 05:59 05:59 05:59 Intake Total 2840 1704 Output Total 1 Balance 2840 1703 PT 14.3 SEC (12.0-15.0) 01/08/18 12:00 INR 1.09 (0.83-1.16) 01/08/18 12:00 - Time Spent With Patient Time Spent with Patient: greater than 35 minutes Time Spent with Patient: Greater than 35 minutes spent on this patients care, greater than 50% of time spent counseling, educating, and coordinating care regarding the above mentioned plan. - Pending Discharge Pending Discharge Within 24 Hours: Yes Pending Discharge Date: 01/11/18 Pending Discharge Time: 11:00 - Physical Exam Constitutional: no apparent distress, not in pain, chronically ill appearing, No uncomfortable Cardiovascular: systolic murmur (I/ at sternum), No tachycardia, No edema Respiratory: inspiratory crackles (clear w/ cough at bases), No reduced air movement, No expiratory wheeze, No bronchial breath sounds, No respiratory distress Gastrointestinal: normoactive bowel sounds, distension (moderate), No tenderness , No guarding Neurologic: AAOx3, sensation intact bilaterally, No weakness Psychiatric: not anxious, flat affect, other (concentration 6/7), No agitated ICD10 Worksheet Patient Problems: Problems Problem Status Onset Hyponatremia Acute Word finding difficulty Acute Confusion Acute Hypertension Acute Confusion Acute UTI (urinary tract infection) Acute Encephalopathy acute Acute Pneumonia Acute
[2018-01-10] MEDS: VANCOMYCIN HCL/NORMAL SALINE 250 ML IV SCH (18:08)
[2018-01-10] MEDS: MELATONIN 3 MG TAB PO SCH (20:43)
[2018-01-10] MEDS: BIMATOPROST 0.01% 2.5 ML OPHT.BTL EACHEYE SCH (20:43)
[2018-01-11] MEDS: INSULIN REGULAR HUMAN 100 UNIT/ML UNIT SC SCH ×4 (08:10→22:37)
[2018-01-11] MEDS: BRIMONIDINE/TIMOLOL 5 ML OPHT.BTL EACHEYE SCH ×2 (08:11→20:34)
[2018-01-11] MEDS: DORZOLAMIDE 2% OPTH DROPS EACHEYE SCH ×2 (08:11→20:34)
[2018-01-11] MEDS: LABETALOL HCL 100 MG TAB PO SCH ×2 (08:15→20:21)
[2018-01-11] MEDS: ASCORBIC ACID 500 MG TAB PO SCH (08:16)
[2018-01-11] MEDS: CHOLECALCIFEROL VIT D3 1,000 UNITS TAB PO SCH (08:16)
[2018-01-11] MEDS: GABAPENTIN 100 MG CAP PO SCH ×3 (08:16→20:20)
[2018-01-11] MEDS: ENOXAPARIN 30 MG/0.3 ML SYR SC SCH (08:16)
--- NOTE | 2018-01-11 12:53 | PCMIDPN ---
Assessment/Plan: Assessment: sepsis presentation with unclear etiology. Patient with known Hodgkin's disease in the left-sided paraspinous space around the lumbar spine. This is the area where there is a questionable collection which may represent infection. The aspiration of fluid did not show bi purulence and the cultures are pending. In the meantime she is being maintained on vancomycin monotherapy. Discussed with Oncology about the possibility that this is customer relations representative of a progressive malignant situation rather than infectious etiology. Plan: 1. Continue IV vancomycin empirically 2. Follow up on culture of the fluid. 3. follow up on pathology. 01/11/18 16:27 Subjective: Patient resting in her hospital bed. She has no new complaint. She does note that she is incontinent of both urine and stool. No fevers or chills. Objective: Vancomycin # 2 Vital Signs Temp Pulse Resp BP Pulse Ox 36.3 C 72 20 100/52 L 93 01/11/18 11:11 01/11/18 11:11 01/11/18 11:11 01/11/18 11:11 01/11/18 11:11 Microbiology 01/09/18 15:43 Gram Stain - Final Hip - Tissue Laboratory Results 01/10/18 04:29 01/10/18 04:29 01/10/18 01/11/18 01/12/18 05:59 05:59 05:59 Intake Total 1704 250 Output Total 1 Balance 1703 250 ESR 40 MM/HR (0-30) H 01/09/18 04:25 - Physical Exam General Appearance: WD/WN, alert, no apparent distress, non-toxic Respiratory: lungs clear, normal breath sounds, No respiratory distress Cardiac/Chest: regular rate, rhythm, No tachycardia Skin: normal color, warm/dry, No rash Neuro/Psych: alert, normal mood/affect, oriented x 3 ICD10 Worksheet Patient Problems: Problems Problem Status Onset Pneumonia Acute Confusion Acute Confusion Acute Encephalopathy acute Acute Hypertension Acute Hyponatremia Acute UTI (urinary tract infection) Acute Word finding difficulty Acute
--- NOTE | 2018-01-11 14:47 | SOAPPROG ---
SOAP Progress Note Assessment/Plan: Assessment: 1. Hodgkin's disease 2.possible iliopsoas abscess 3. Diarrhea, possible ileus She is having significant diarrhea and is incontinent of stool at times, but denies incontinence of urine, also denies saddle numbness and leg strength is ok Plan:Continue antibiotics per ID, await cultures. Will try judicious imodium, neg GI panel. Discussed possibility of epidural compression with Dr Acosta, I think unlikely, diarrhea could be related to recent radiation therapy.If condition deteriorates would repeat mri LS spine 01/10/18 14:10 01/11/18 14:42 Subjective: Some diarrhea with incontinence Objective: Vital Signs Temp Pulse Resp BP Pulse Ox 97.4 F 72 20 100/52 L 93 01/11/18 11:11 01/11/18 11:11 01/11/18 11:11 01/11/18 11:11 01/11/18 11:11 Microbiology 01/09/18 15:43 Gram Stain - Final Hip - Tissue Laboratory Results 01/10/18 04:29 01/10/18 04:29 01/10/18 01/11/18 01/12/18 05:59 05:59 05:59 Intake Total 1704 250 Output Total 1 Balance 1703 250 PT 14.3 SEC (12.0-15.0) 01/08/18 12:00 INR 1.09 (0.83-1.16) 01/08/18 12:00 Physical Exam - Physical Exam General Appearance: alert, no apparent distress Respiratory: lungs clear Cardiac/Chest: regular rate, rhythm Abdomen: No normal bowel sounds (increased BS) Neuro/Psych: other (LE strength ok) ICD10 Worksheet Patient Problems: Problems Problem Status Onset Pneumonia Acute Confusion Acute Confusion Acute Encephalopathy acute Acute Hypertension Acute Hyponatremia Acute UTI (urinary tract infection) Acute Word finding difficulty Acute
[2018-01-11] MEDS: oxyCODONE IR 5 MG TAB PO PRN (16:30)
[2018-01-11] MEDS: LOPERAMIDE HCL 2 MG CAP PO PRN (16:30)
--- NOTE | 2018-01-11 17:33 | HOSPPROG ---
Hospitalist Progress Note Assessment/Plan: Assessment: 65-year-old female presents with sepsis secondary to iliopsoas abscess complicated by acute ileus and now diarrhea Plan: 1. Sepsis. POA. Evidenced by 3/3 qSOFA score (hypotension, tachypnea, encephalopathy) with autonomic dysregulation in the setting of infection and end -organ failure notably lactic acidosis, acute kidney injury, meeting all ICDS-3 criteria, resolved -status post IV fluids, IV abx 2. Left iliopsoas abscess. POA. Acute, unclear whether this has evolved status post radiation to the left lumbar spine malignant mass, radiology reports that the biopsied area is most certainly infectious appearing -per Dr. Acosta, continue Vanco IV daily and monitor Cx results, currently only WBC on GS 3. Acute kidney injury. Most likely secondary to renal hypoperfusion in the setting of sepsis, received IV fluids, resolved 4. Acute metabolic acidosis. Secondary to sepsis, resolved 5. Hodgkin's lymphoma. Patient with L3-L4 mass, received radiation therapy, appreciate ongoing oncology consultation 6. Hypertension. Chronic, hold patient's home antihypertensives given hypotension -cont bblocker, reintroduce others tomorrow if SBP > 140 7. Acute encephalopathy. Evidenced by global brain dysfunction characterized as confusion, disorientation, these acute changes from her baseline were her primary reason for presentation on 01/08, currently improving with stabilization of her blood pressure, most likely secondary to the metabolic effects of acute kidney injury, metabolic acidosis, and toxic effects of infection -significant improvement today s/p melatonin HS 8. Acute atelectasis. Cont IS, ambulate w/ assist 9. Acute ileus. Most likely secondary to her localized inflammation from left iliopsoas abscess, ongoing e/o distension on x-ray (personally interpreted) but clinically having stool out 10. Diarrhea. Acute, new problem, further w/u indicated. Patient w/ 3 loose BMs today, not overtly incontinent but has been, is at risk for spinal cord syndrome given the location of her malignancy -obtain abd x-ray to ensure no worsening ileus/obstruction w/ overflow incontinence -GI PCR w/o CDiff -OK to use imodium PRN, but would do so carefully so as not to provoke obstruction -it is certainly possible that she is having a radiation induced enteritis, but , if demonstrating overt incontinence of stool + urine and any evolving LE symptoms, get stat MRI L/sacral Diet. Regular Prophylaxis. High risk patient, Lovenox 40 Code. Do not resuscitate Disposition. Anticipated discharge 01/12, remains clinically on resolved and on IV antibiotics awaiting speciation and sensitivity Subjective: 3 loose BMs today, no signficant abd pain, slept well last night Objective: Vital Signs Temp Pulse Resp BP Pulse Ox 36.8 C 75 16 137/68 H 95 01/11/18 16:00 01/11/18 16:00 01/11/18 16:00 01/11/18 16:00 01/11/18 16:00 Microbiology 01/09/18 15:43 Gram Stain - Final Hip - Tissue Laboratory Results 01/10/18 04:29 01/10/18 04:29 01/10/18 01/11/18 01/12/18 05:59 05:59 05:59 Intake Total 1704 250 Output Total 1 Balance 1703 250 PT 14.3 SEC (12.0-15.0) 01/08/18 12:00 INR 1.09 (0.83-1.16) 01/08/18 12:00 - Pending Discharge Pending Discharge Within 24 Hours: Yes Pending Discharge Date: 01/12/18 Pending Discharge Time: 11:00 - Physical Exam Constitutional: no apparent distress, appears nourished, not in pain, No uncomfortable Cardiovascular: regular rate and rhythym, no murmur, rub, or gallop, edema ( trace bilat LE) Respiratory: no respiratory distress, no rales or rhonchi, clear to auscultation , No rhonchi Gastrointestinal: distension (mild-moderate), No normoactive bowel sounds ( hyperactive bowel sounds), No tenderness, No guarding Skin: other (abrasion on dorsum R foot) Neurologic: AAOx3, sensation intact bilaterally, No weakness (motor 5/5 bilat LE ) Psychiatric: interacting appropriately, not anxious, not encephalopathic, thought process linear, other (concentration 7/7), No flat affect ICD10 Worksheet Patient Problems: Problems Problem Status Onset Hyponatremia Acute Word finding difficulty Acute Confusion Acute Hypertension Acute Confusion Acute UTI (urinary tract infection) Acute Encephalopathy acute Acute Pneumonia Acute
[2018-01-11] MEDS: VANCOMYCIN HCL/NORMAL SALINE 250 ML IV SCH (18:46)
[2018-01-11] MEDS: MELATONIN 3 MG TAB PO SCH (20:20)
[2018-01-11] MEDS: ACETAMINOPHEN 325 MG TAB PO PRN (20:21)
[2018-01-11] MEDS: BIMATOPROST 0.01% 2.5 ML OPHT.BTL EACHEYE SCH (20:34)
[2018-01-12 05:55] LABS: PLATELET COUNT 156 10^3/uL (150-400)
[2018-01-12] MEDS: GABAPENTIN 100 MG CAP PO SCH ×3 (08:20→22:52)
[2018-01-12] MEDS: CHOLECALCIFEROL VIT D3 1,000 UNITS TAB PO SCH (08:20)
[2018-01-12] MEDS: ENOXAPARIN 30 MG/0.3 ML SYR SC SCH (08:20)
[2018-01-12] MEDS: LABETALOL HCL 100 MG TAB PO SCH ×2 (08:21→22:52)
[2018-01-12] MEDS: ASCORBIC ACID 500 MG TAB PO SCH (08:22)
[2018-01-12] MEDS: INSULIN REGULAR HUMAN 100 UNIT/ML UNIT SC SCH ×4 (08:23→22:16)
[2018-01-12] MEDS: BRIMONIDINE/TIMOLOL 5 ML OPHT.BTL EACHEYE SCH ×2 (08:23→22:51)
[2018-01-12] MEDS: DORZOLAMIDE 2% OPTH DROPS EACHEYE SCH ×2 (08:24→22:47)
--- NOTE | 2018-01-12 10:19 | SOAPPROG ---
SOAP Progress Note Assessment/Plan: Assessment: SOAP Progress Note Assessment/Plan: Assessment: 1. Hodgkin's disease 2. Possible iliopsoas abscess 3. Diarrhea-improving. Cytology-necrotic debris, no malignant cells. Plan:Continue antibiotics per ID, await cultures. Clinically stable. Up walking around room. No signs of cord compression. Remains unclear how much of current situation is due to recurrent hodgkins +/- infection. 01/12/18 12:47 Subjective: diarrhea improved, eager to be discharged Objective: Vital Signs Temp Pulse Resp BP Pulse Ox 36.9 C 85 18 142/63 H 93 01/12/18 08:00 01/12/18 08:00 01/12/18 08:00 01/12/18 08:00 01/12/18 08:00 Microbiology 01/09/18 15:43 Gram Stain - Final Hip - Tissue Laboratory Results 01/12/18 04:31 01/12/18 04:31 01/11/18 01/12/18 01/13/18 05:59 05:59 05:59 Intake Total 250 Balance 250 PT 14.3 SEC (12.0-15.0) 01/08/18 12:00 INR 1.09 (0.83-1.16) 01/08/18 12:00 Physical Exam - Physical Exam General Appearance: alert, no apparent distress Respiratory: lungs clear Abdomen: non-tender, soft ICD10 Worksheet Patient Problems: Problems Problem Status Onset Pneumonia Acute Confusion Acute Confusion Acute Encephalopathy acute Acute Hypertension Acute Hyponatremia Acute UTI (urinary tract infection) Acute Word finding difficulty Acute
--- NOTE | 2018-01-12 11:38 | PCMIDPN ---
Assessment/Plan: Assessment: sepsis presentation with unclear etiology. Patient with known Hodgkin's disease in the left-sided paraspinous space around the lumbar spine. This is the area where there is a questionable collection which may represent infection. The aspiration of fluid did not show bi purulence and the cultures are negative nearing 3 days of incubation. Will hold her Vancomycin at present as there is no clear indication as to need for treatment. Discussed with Oncology about the possibility that this is telephone services sales representative of a progressive malignant situation rather than infectious etiology. Plan: 1. Discontinue IV vancomycin. 2. Will sign off at this point. Please call with future questions. 01/11/18 16:27 01/12/18 15:31 Subjective: Patient is sitting up in her bed. No new complaint. Generally feeling weak. Wants to sleep all the time. Objective: Vancomycin #3 Vital Signs Temp Pulse Resp BP Pulse Ox 36.9 C 85 18 142/63 H 93 01/12/18 08:00 01/12/18 08:00 01/12/18 08:00 01/12/18 08:00 01/12/18 08:00 Microbiology 01/09/18 15:43 Gram Stain - Final Hip - Tissue Laboratory Results 01/12/18 04:31 01/12/18 04:31 01/11/18 01/12/18 01/13/18 05:59 05:59 05:59 Intake Total 250 Balance 250 ESR 40 MM/HR (0-30) H 01/09/18 04:25 - Physical Exam General Appearance: WD/WN, alert, no apparent distress, non-toxic Respiratory: lungs clear, normal breath sounds, No respiratory distress Cardiac/Chest: regular rate, rhythm, No tachycardia Skin: normal color, warm/dry, No rash Neuro/Psych: alert, normal mood/affect, oriented x 3 ICD10 Worksheet Patient Problems: Problems Problem Status Onset Pneumonia Acute Confusion Acute Confusion Acute Encephalopathy acute Acute Hypertension Acute Hyponatremia Acute UTI (urinary tract infection) Acute Word finding difficulty Acute
--- NOTE | 2018-01-12 15:53 | HOSPPROG ---
Hospitalist Progress Note Assessment/Plan: * Possible iliopsoas abscess s/p IR drain -culture negative - not clearly infected -d/w Dr. Acosta - possible DC abx soon -continue IV Vanco * Hodgkin's lymphoma with L3/L4 mass -recent XRT * Metabolic encephalopathy - improved * Ileus - improved * Possible Sepsis (POA) * Leg wound s/p debridement - wound care * PVD s/p stent Subjective: No complaints. Objective: Vital Signs Temp Pulse Resp BP Pulse Ox 37.2 C 78 16 170/73 H 97 01/12/18 15:20 01/12/18 15:20 01/12/18 15:20 01/12/18 15:20 01/12/18 15:20 Microbiology 01/09/18 15:43 Gram Stain - Final Hip - Tissue Laboratory Results 01/12/18 04:31 01/12/18 04:31 01/11/18 01/12/18 01/13/18 05:59 05:59 05:59 Intake Total 250 Balance 250 PT 14.3 SEC (12.0-15.0) 01/08/18 12:00 INR 1.09 (0.83-1.16) 01/08/18 12:00 AXR - mildly dilated loops of bowel - Physical Exam Constitutional: no apparent distress, appears nourished, not in pain Cardiovascular: regular rate and rhythym, no murmur, rub, or gallop, edema Respiratory: no respiratory distress, no rales or rhonchi, clear to auscultation Gastrointestinal: normoactive bowel sounds, soft, non-tender abdomen, no palpable masses Skin: no rashes or abrasions, no fluctuance, no induration Neurologic: AAOx3, sensation intact bilaterally Psychiatric: interacting appropriately, not anxious, not encephalopathic, thought process linear ICD10 Worksheet Patient Problems: Problems Problem Status Onset Pneumonia Acute Confusion Acute Confusion Acute Encephalopathy acute Acute Hypertension Acute Hyponatremia Acute UTI (urinary tract infection) Acute Word finding difficulty Acute
[2018-01-12] MEDS ORDERED: FUROSEMIDE 20 MG/2 ML VIAL IVP ONE (15:56)
--- NOTE | 2018-01-12 16:56 | ASMTCMCOM ---
CM Note CM Note Notes: Reviewed chart regarding discharge plan of care, pt's progress. Pt with history of Hodgkins lymphoma and an L3/L4 mass. Pt with leg wound s/p debridement. Mild encephalopathy improving per Hospitalist. Pt's dghtr remains involved in pt's care. Discharge plan continues to be [facility] when pt is medically stable. CM will continue to follow. Current Discharge Plan: [facility] Date Signed: 01/12/2018 04:55 PM Electronically Signed By:Eunice Ward RN
[2018-01-12] MEDS: BIMATOPROST 0.01% 2.5 ML OPHT.BTL EACHEYE SCH (22:46)
[2018-01-12] MEDS: MELATONIN 3 MG TAB PO SCH (22:52)
[2018-01-13] MEDS: CHOLECALCIFEROL VIT D3 1,000 UNITS TAB PO SCH (08:59)
[2018-01-13] MEDS: GABAPENTIN 100 MG CAP PO SCH ×3 (08:59→21:15)
[2018-01-13] MEDS: ASCORBIC ACID 500 MG TAB PO SCH (08:59)
[2018-01-13] MEDS: ENOXAPARIN 30 MG/0.3 ML SYR SC SCH (08:59)
[2018-01-13] MEDS: INSULIN REGULAR HUMAN 100 UNIT/ML UNIT SC SCH ×4 (09:00→21:26)
[2018-01-13] MEDS: BRIMONIDINE/TIMOLOL 5 ML OPHT.BTL EACHEYE SCH ×2 (09:00→21:17)
[2018-01-13] MEDS: DORZOLAMIDE 2% OPTH DROPS EACHEYE SCH ×2 (09:00→21:16)
[2018-01-13] MEDS ORDERED: PROTOCOL POTASSIUM 1 DOSE MISC PRN (09:13)
[2018-01-13] MEDS ORDERED: POTASSIUM CL 10 MEQ TAB PO ONE ×2 (10:24→19:47)
[2018-01-13] MEDS: LABETALOL HCL 100 MG TAB PO SCH ×2 (10:32→21:15)
--- NOTE | 2018-01-13 13:35 | HOSPPROG ---
Hospitalist Progress Note Assessment/Plan: * Possible iliopsoas abscess s/p IR drain -culture negative - not clearly infected -DC antibiotics and monitor * Hodgkin's lymphoma with L3/L4 mass -recent XRT * Metabolic encephalopathy - improved * Ileus - improved -recurrence of ileus last night - now with BM again * Possible Sepsis (POA) * Leg wound s/p debridement - wound care * PVD s/p stent * Lymphedema of LE -lymphedema compression device brought in from home Subjective: Large amount of abdominal distension last night, then large BM and it resolved Objective: Vital Signs Temp Pulse Resp BP Pulse Ox 36.9 C 76 16 142/61 H 94 01/13/18 11:03 01/13/18 11:03 01/13/18 11:03 01/13/18 11:03 01/13/18 11:03 Microbiology 01/09/18 15:43 Gram Stain - Final Hip - Tissue Laboratory Results 01/12/18 04:31 01/13/18 04:33 PT 14.3 SEC (12.0-15.0) 01/08/18 12:00 INR 1.09 (0.83-1.16) 01/08/18 12:00 - Physical Exam Constitutional: no apparent distress, appears nourished, not in pain Cardiovascular: regular rate and rhythym, no murmur, rub, or gallop Respiratory: no respiratory distress, no rales or rhonchi, clear to auscultation Gastrointestinal: normoactive bowel sounds, soft, non-tender abdomen, no palpable masses Skin: no rashes or abrasions, no fluctuance, no induration Neurologic: AAOx3, sensation intact bilaterally Psychiatric: interacting appropriately, not anxious, not encephalopathic, thought process linear ICD10 Worksheet Patient Problems: Problems Problem Status Onset Pneumonia Acute Confusion Acute Confusion Acute Encephalopathy acute Acute Hypertension Acute Hyponatremia Acute UTI (urinary tract infection) Acute Word finding difficulty Acute
[2018-01-13] MEDS: MELATONIN 3 MG TAB PO SCH (21:16)
[2018-01-13] MEDS: BIMATOPROST 0.01% 2.5 ML OPHT.BTL EACHEYE SCH (21:17)
[2018-01-14 05:34] LABS: PLATELET COUNT 172 10^3/uL (150-400)
[2018-01-14] MEDS ORDERED: POTASSIUM CL 10 MEQ TAB PO ONE (07:19)
[2018-01-14] MEDS: ENOXAPARIN 30 MG/0.3 ML SYR SC SCH (08:00)
[2018-01-14] MEDS: CHOLECALCIFEROL VIT D3 1,000 UNITS TAB PO SCH (08:00)
[2018-01-14] MEDS: GABAPENTIN 100 MG CAP PO SCH (08:03)
[2018-01-14] MEDS: BRIMONIDINE/TIMOLOL 5 ML OPHT.BTL EACHEYE SCH (08:04)
[2018-01-14] MEDS: ASCORBIC ACID 500 MG TAB PO SCH (08:04)
[2018-01-14] MEDS: DORZOLAMIDE 2% OPTH DROPS EACHEYE SCH (08:04)
[2018-01-14] MEDS: LABETALOL HCL 100 MG TAB PO SCH (08:05)
[2018-01-14] MEDS: INSULIN REGULAR HUMAN 100 UNIT/ML UNIT SC SCH ×2 (08:14→11:38)
[2018-01-14 08:52] VITALS: BP 130/72
--- NOTE | 2018-01-14 09:46 | PDIAF ---
- Diagnosis Diagnosis: Ileus, iliopsoas fluid s/p drain Code Status: Do Not Resuscitate - Medication Management Discharge Medications: Medications to Continue on Transfer Cholecalciferol Vit D3 [Vitamin D3 (*)] 5,000 units PO DAILY 02/01/17 [Last Taken 01/07/18] Multivitamins [Multivitamin (*)] 1 each PO DAILY 02/01/17 [Last Taken 01/07/18] Acetaminophen [Tylenol 325mg (*)] 650 mg PO Q6 PRN tab 07/16/17 [Last Taken 11/21] Bimatoprost 0.01% [Lumigan 0.01% (*)] 1 drops EACHEYE HS #1 opht.btl 07/16/17 [ Last Taken 01/07/18] Brimonidine/Timolol [Combigan (*)] 1 drops EACHEYE BID #1 opht.btl 07/16/17 [ Last Taken 01/07/18] Dorzolamide 2% [Trusopt 2% (*)] 1 drops EACHEYE BID #1 opht.btl 07/16/17 [Last Taken 01/07/18] Ascorbic Acid [Vitamin C 500 mg (*)] 500 mg PO DAILY 11/06/17 [Last Taken ] Gabapentin [Neurontin 100 MG (*)] 300 mg PO TID 11/06/17 [Last Taken 01/07/18] Labetalol HCl [Trandate 100 mg (*)] 50 mg PO BID 11/06/17 [Last Taken 01/07/18] Ibuprofen [Motrin (*)] 400 mg PO Q6HRS PRN #0 tab 11/09/17 [Last Taken 01/07/18] amLODIPine BESYLATE [Norvasc 5 mg (*)] 5 mg PO DAILY #30 tab 11/09/17 [Last Taken 01/07/18] Discharge Medications: Refer to the Discharge Home Medication list for PRN reason. - Orders Services needed: Physical Therapy, Occupational Therapy Isolation Type: None Diet Recommendation: no restrictions on diet Activity/Weight Bearing Restrictions: Lymphedema treatment per home regiman - Follow Up Care Current Providers and Referrals: Maris Davies MD [Primary Care Provider] - As per Instructions
[2018-01-14] MEDS: LOPERAMIDE HCL 2 MG CAP PO PRN (10:46)
--- NOTE | 2018-01-14 13:24 | SOAPPROG ---
SOAP Progress Note Assessment/Plan: E&M for Hodgkin's * Hodgkin's disease dx 09/21 tx with ABVDx2 then XRT; recurred 11/20 and tx with brentuximab vedotin; probable recurrence L3-L4 tx with dex and xrt 12/21. * Possible iliopsoas abscess: cultures negative; abx stopped per ID. * Diarrhea after possible ileus: encouraged PO intake; use imodium prn. * Left lymphedema s/p stenting end 2016. * Disposition: No contraindication from onc standpoint to go home with f/u with Dr. Bernard 1-2 weeks. Subjective: Denies any pain. Had some diarrhea with breakfast but not with lunch so far; trouble with constipation yesterday. Hoping to go out today. Daughter with patient. Objective: Vital Signs Temp Pulse Resp BP Pulse Ox 36.3 C 78 16 130/72 H 93 01/14/18 08:00 01/14/18 08:00 01/14/18 08:00 01/14/18 08:00 01/14/18 08:00 Laboratory Results 01/14/18 04:56 01/14/18 04:56 01/13/18 01/14/18 01/15/18 05:59 05:59 05:59 Intake Total 940 Balance 940 PT 14.3 SEC (12.0-15.0) 01/08/18 12:00 INR 1.09 (0.83-1.16) 01/08/18 12:00 Laboratory Tests 01/12/18 01/14/18 04:31 04:56 Hgb 8.7 L 8.8 L Physical Exam - Physical Exam General Appearance: no apparent distress Respiratory: lungs clear Cardiac/Chest: regular rate, rhythm Abdomen: normal bowel sounds, non-tender, soft ICD10 Worksheet Patient Problems: Problems Problem Status Onset Pneumonia Acute Confusion Acute Confusion Acute Encephalopathy acute Acute Hypertension Acute Hyponatremia Acute UTI (urinary tract infection) Acute Word finding difficulty Acute
--- NOTE | 2018-01-14 15:43 | GDS ---
[f rep st] DISCHARGE SUMMARY DISCHARGE DIAGNOSES: 1. Possible iliopsoas abscess status post Interventional Radiology drain. 2. Hodgkin lymphoma with L3-L4 mass. 3. Metabolic encephalopathy. 4. Ileus. 5. Leg wound status post debridement. 6. Lower extremity lymphedema status post stent. HISTORY: The patient is an 87-year-old female with Hodgkin lymphoma. She was recently found to have an L3-L4 mass. This has been irradiated. She was subsequently found to have a fluid collection of the iliopsoas adjacent to this mass. There was some concern it might be infected. Interventional Ra diology put a drain in it, and a culture of the fluid was negative. She received empiric antibiotics and Infectious Disease consultation. Given the negative culture, they do not feel this was an infec pramod fluid and likely malignant, possibly a complication of her radiation therapy. They have disconti nued antibiotics. The patient was monitored without any recurrence of fever or leukocytosis. She also had an ileus on presentation. This has resolved. She subsequently had diarrhea. Stool PCR is negative. She can use Imodium as needed. DISCHARGE MEDICATIONS: Please see computerized record for full detailed list. No new medications gi brisa at time of hospital discharge. ADDITIONAL DISCHARGE INSTRUCTIONS: 1. Transfer to [facility] for rehabilitation. 2. She will continue her lymphedema compression device as per her home regimen. Greater than 30 minutes' time was spent arranging this discharge. Patient was seen and examined by michelle terry on the day of discharge. /[id number]/MODL
== END 2018-01-14 14:11 | DRG 823 ==
LOC: F3E 16:25
PROVIDERS: ADMIT Internal Medicine; ATTEND Internal Medicine
PROC: 0K9P3ZX Drainage of Left Hip Muscle, Percutaneous Approach, Diagnostic (ICD-10-PCS; principal; 2018-01-09)
DX: C81.98 Hodgkin lymphoma, unspecified, lymph nodes of multiple sites (principal); G93.41 Metabolic encephalopathy; K56.7 Ileus, unspecified; E86.0 Dehydration; I10 Essential (primary) hypertension; I73.9 Peripheral vascular disease, unspecified; R19.7 Diarrhea, unspecified; I89.0 Lymphedema, not elsewhere classified; H40.9 Unspecified glaucoma; Z66 Do not resuscitate; Z86.73 Personal history of transient ischemic attack (TIA), and cerebral infarction without residual deficits
CPT/HCPCS: 83605-PO; 92507-GN; 92523-GN; 97116-GP; 97161-GP; 97165-GO; 97530-GO; 97530-GP; 97535-GO; G8978-GP-CJ; G8979-GP-CI; G8987-GO-CJ; G8988-GO-CI; G9165-GN-CK; G9166-GN-CJ; J1650; J1815; J1940; J1956; J2310; J2405; J3010; J3370; Q9967

== ENCOUNTER 2018-01-31 16:33 | Emergency (ER) | payer OTHER ==
--- NOTE | 2018-01-31 16:54 | EDPHY ---
H & P Stated Complaint: increasing confusion/incontinence/dx uti rx levaquin yesterday Time Seen by Provider: 01/31/18 16:53 HPI/ROS: CHIEF COMPLAINT: Increasing confusion, recently diagnosed with UTI HISTORY OF PRESENT ILLNESS: The patient is brought into the emergency department by her daughter with increasing confusion since Sunday. The patient recently returned home from a stay at rehab. The patient had been hospitalized prior to that for evaluation of a possible psoas abscess which was felt to be non infectious and a result of prior lymphoma. The patient was started on Levaquin yesterday. The patient has been having intermittent bouts of confusion. Her daughter reports global weakness. She had a low-grade fever yesterday of 99 degrees. The patient reportedly was working with her physical therapist today who felt she was confused and deconditioned. The patient presents to the ED for further evaluation. In the ED, the patient denies acute complaints. She denies recent fall. She denies cough or congestion. She does report urinary incontinence. REVIEW OF SYSTEMS: A comprehensive 10 point review of systems is otherwise negative aside from elements mentioned in the history of present illness. Source: Patient Exam Limitations: No limitations - Personal History Current Tetanus Diphtheria and Acellular Pertussis (TDAP): Yes Tetanus Vaccine Date: < 10 yeaes - Medical/Surgical History Hx Asthma: No Hx Chronic Respiratory Disease: No Hx Diabetes: No Hx Cardiac Disease: No Hx Renal Disease: No Hx Cirrhosis: No Hx Alcoholism: No Hx HIV/AIDS: No Hx Splenectomy or Spleen Trauma: No Other PMH: HTN, LAP TYREL, CATARACTS SURGERY. LEFT KNEE REPLACEMENT. hodgkins lymphoma (radiation & chemotherapy 02/2016), hyponatremia, TIA, UTI, lymphedema to left leg with shunt placement,hysterectomy - Social History Smoking Status: Never smoked - Physical Exam Exam: General Appearance: Alert, no distress Eyes: Pupils equal and round no pallor or injection ENT, Mouth: Mucous membranes moist Respiratory: There are no retractions, lungs are clear to auscultation Cardiovascular: Regular rate and rhythm Gastrointestinal: Abdomen is soft and nontender, no masses, bowel sounds normal Neurological: A&O, normal motor function, normal sensory exam, normal cranial nerves Skin: Chronic ulcer noted to the left lower extremity with clean dry intact dressing applied Musculoskeletal: Neck is supple nontender Extremities: symmetrical, full range of motion Constitutional: Initial Vital Signs Temperature (C) 37.3 C 01/31/18 16:43 Heart Rate 101 H 01/31/18 16:43 Respiratory Rate 18 01/31/18 16:43 Blood Pressure 183/93 H 01/31/18 16:43 O2 Sat (%) 92 01/31/18 16:43 O2 Delivery Mode Room Air Allergies/Adverse Reactions: Sulfa (Sulfonamide Antibiotics) Allergy (Verified 01/31/18 16:42) Other-Enter Comments Home Medications: Medication Instructions Recorded Cholecalciferol Vit D3 [Vitamin D3 5,000 units PO DAILY 02/01/17 (*)] Multivitamins [Multivitamin (*)] 1 each PO DAILY 02/01/17 Acetaminophen [Tylenol 325mg (*)] 650 mg PO Q6 PRN tab 07/16/17 Bimatoprost 0.01% [Lumigan 0.01% 1 drops EACHEYE HS #1 opht.btl 07/16/17 (*)] Brimonidine/Timolol [Combigan (*)] 1 drops EACHEYE BID #1 opht.btl 07/16/17 Dorzolamide 2% [Trusopt 2% (*)] 1 drops EACHEYE BID #1 opht.btl 07/16/17 Ascorbic Acid [Vitamin C 500 mg 500 mg PO DAILY 11/06/17 (*)] Gabapentin [Neurontin 100 MG (*)] 300 mg PO TID 11/06/17 Labetalol HCl [Trandate 100 mg (*)] 50 mg PO BID 11/06/17 Ibuprofen [Motrin (*)] 400 mg PO Q6HRS PRN #0 tab 11/09/17 amLODIPine BESYLATE [Norvasc 5 mg 5 mg PO DAILY #30 tab 11/09/17 (*)] Levofloxacin 01/31/18 Medical Decision Making ED Course/Re-evaluation: I reviewed the results of the patient's urine culture which demonstrates evidence of a contaminant and no urinary tract infection. The patient's laboratory studies are within normal limits. The patient does appear appropriately oriented in the emergency department and she has no acute complaints. I did review her case with her surgeon Dr. Kelly Scruggs. The patient's daughter is accompanying her. She presents to the ED with episodic and intermittent confusion which likely is multifactorial in nature and certainly could be age related and related to her recent hospitalizations and rehab stay. The patient has no evidence of an obvious infection, vital sign abnormality, clinical evidence of stroke or toxidrome which requires admission to the hospital. I do feel that she can stop taking her Levaquin based upon her urine culture results. Family is comfortable discharging the patient to home. Differential Diagnosis: Differential diagnosis considered includes dehydration, metabolic abnormality, renal failure, urinary tract infection, stroke, TIA, medication side effect - Data Points Laboratory Results: Laboratory Results 01/31/18 17:32 01/31/18 17:32 01/31/18 01/31/18 17:32 17:32 WBC 14.00 10^3/uL H 10^3/uL (3.80-9.50) RBC 3.38 10^6/uL L 10^6/uL (4.18-5.33) Hgb 8.7 g/dL L g/dL (12.6-16.3) Hct 26.6 % L % (38.0-47.0) MCV 78.7 fL L fL (81.5-99.8) MCH 25.7 pg L pg (27.9-34.1) MCHC 32.7 g/dL g/dL (32.4-36.7) RDW 16.2 % H % (11.5-15.2) Plt Count 395 10^3/uL 10^3/uL (150-400) MPV 9.8 fL fL (8.7-11.7) Neut % (Auto) 78.2 % H % (39.3-74.2) Lymph % (Auto) 11.7 % L % (15.0-45.0) [place] % (Auto) 8.4 % % (4.5-13.0) Eos % (Auto) 0.4 % L % (0.6-7.6) Baso % (Auto) 0.4 % % (0.3-1.7) Nucleat RBC Rel Count 0.0 % % (0.0-0.2) Absolute Neuts (auto) 10.95 10^3/uL H 10^3/uL (1.70-6.50) Absolute Lymphs (auto) 1.64 10^3/uL 10^3/uL (1.00-3.00) Absolute Monos (auto) 1.17 10^3/uL H 10^3/uL (0.30-0.80) Absolute Eos (auto) 0.06 10^3/uL 10^3/uL (0.03-0.40) Absolute Basos (auto) 0.05 10^3/uL 10^3/uL (0.02-0.10) Absolute Nucleated RBC 0.00 10^3/uL 10^3/uL (0-0.01) Immature Gran % 0.9 % % (0.0-1.1) Immature Gran # 0.13 10^3/uL H 10^3/uL (0.00-0.10) Sodium 132 mEq/L L mEq/L (135-145) Potassium 3.9 mEq/L mEq/L (3.3-5.0) Chloride 96 mEq/L L mEq/L (97-110) Carbon Dioxide 24 mEq/l mEq/l (22-31) Anion Gap 12 mEq/L mEq/L (8-16) BUN 10 mg/dL mg/dL (7-23) Creatinine 0.7 mg/dL mg/dL (0.6-1.0) Estimated GFR > 60 Glucose 187 mg/dL H mg/dL (70-100) Calcium 8.7 mg/dL mg/dL (8.5-10.4) Medications Given: Discontinued Medications Sodium Chloride (Ns) 1,000 mls @ 0 mls/hr IV EDNOW ONE; Wide Open PRN Reason: Protocol Stop: 01/31/18 17:15 Last Admin: 01/31/18 17:28 Dose: 1,000 mls Departure - Departure Disposition: Home, Routine, Self-Care Clinical Impression: Confusion Condition: Good Instructions: Dehydration (ED) Additional Instructions: 1. The workup in the emergency department today is unrevealing. 2. Based upon the urine culture I do feel you can stop taking antibiotics. 3. Please return to the ED for markedly worsening symptoms, fever, vomiting, worsening neurologic symptoms or other concerns. Referrals: Maris Davies MD [Primary Care Provider] - As per Instructions
[2018-01-31] MEDS ORDERED: NS 1,000 ML IV ONE (17:14)
[2018-01-31 17:47] LABS: PLATELET COUNT 395 10^3/uL (150-400)
[2018-01-31 19:54] VITALS: BP 164/77
== END 2018-01-31 19:54 | disposition home or self-care (01) ==
DX: R41.0 Disorientation, unspecified (principal); E86.9 Volume depletion, unspecified; I10 Essential (primary) hypertension

== ENCOUNTER 2018-02-04 02:59 | Inpatient (IN) | payer OTHER ==
[2018-02-04] MEDS ORDERED: NS 500 ML IV ONE (03:08)
--- NOTE | 2018-02-04 03:13 | EDPHY ---
H & P Time Seen by Provider: 02/04/18 03:13 HPI/ROS: HPI CHIEF COMPLAINT: Fall, head strike HISTORY OF PRESENT ILLNESS: Patient 87-year-old female, she has a history of hypertension, she resides at the [facility], was recently here in the emergency room for increasing confusion was evaluated for this and subsequently discharged home. She presents emergency room tonight by EMS after she alerted 911 with her medical alert steve, she apparently fell out of bed it is unclear how long she was on the ground for. The medical lower was notified 2: 15 a.m. It is now 3:15 a.m.. Patient presents emergency room she does appear confused her daughter is not here yet she does complain of right-sided headache where she hit her head on the ground. She denies any chest pain or shortness of breath. Past Medical History: History of hypertension, metabolic encephalopathy, Hodgkin lymphoma, ileus, recent psoas drain Past Surgical History: Psoas strain. Social History: Lives at the [facility]. Family History: Noncontributory ROS REVIEW OF SYSTEMS: A comprehensive 10 point review of systems is otherwise negative aside from elements mentioned in the history of present illness. Exam Constitutional nontoxic appearing, confused, triage nursing summary reviewed, vital signs reviewed, awake/alert. Eyes normal conjunctivae and sclera, EOMI, PERRLA. HENT head/neck atraumatic on exam, normal inspection, atraumatic, dry mucus membranes, no epistaxis, neck supple/ no meningismus, no raccoon eyes. Respiratory clear to auscultation bilaterally, normal breath sounds, no respiratory distress, no wheezing. Cardiovascular rate normal, regular rhythm, no murmur, no edema, distal pulses normal. Gastrointestinal soft, non-tender, no rebound, no guarding, normal bowel sounds, no distension, no pulsatile mass. Genitourinary no CVA tenderness. Musculoskeletal no midline vertebral tenderness, full range of motion, no calf swelling, no tenderness of extremities, no meningismus, good pulses, neurovascularly intact. Skin pink, warm, & dry, no rash, skin atraumatic. Neurologic alert and orient x2, moves all 4 extremities equally, motor intact , sensory intact, CN II-XII intact, normal cerebellar, normal vision, normal speech. Psychiatric normal mood/affect. Heme/Lymph/Immune no lymphadenopathy. Differential Diagnosis: Includes but is not limited to in a particular order closed-head injury, intracranial bleed, electrolyte disturbance, dehydration, infection Medical Decision Making: Plan for this patient CT scan head without contrast for trauma, check electrolytes, check UA, gentle IV hydration, chest x-ray and re-evaluate. Re-evaluation: 0334: Daughter at bedside states that she is more confused at normal as been concerned about her recent increasing confusion and recurrent falls at home. Daughter reports that she was in the hospital the beginning of January for week and additionally was recently in the emergency room on the it is now back in the emergency room. CT head without contrast negative for acute traumatic injury. ED x-ray chest one view cardiomegaly present. Additionally possible bilateral lower lobe pneumonia worse on the left than right. 0453: Discussed at length with the daughter at bedside requesting admission for placement higher level of care. Does not feel comfortable her going home to her independent living facility where. She is confused and having increasing falls. I have asked the hospitalist service to admit her have case management see her and work on higher level of care placement. Dr. Sotelo agrees to admit. CT angiogram of the chest shows no evidence of pulmonary embolism however does show a right-sided moderate pleural effusion atelectasis. Updated the hospitalist service about this. Source: Patient, EMS - Personal History Tetanus Vaccine Date: < 10 yeaes - Medical/Surgical History Hx Asthma: No Hx Chronic Respiratory Disease: No Hx Diabetes: No Hx Cardiac Disease: No Hx Renal Disease: No Hx Cirrhosis: No Hx Alcoholism: No Hx HIV/AIDS: No Hx Splenectomy or Spleen Trauma: No Other PMH: HTN, LAP TYREL, CATARACTS SURGERY. LEFT KNEE REPLACEMENT. hodgkins lymphoma (radiation & chemotherapy 02/2016), hyponatremia, TIA, UTI, lymphedema to left leg with shunt placement,hysterectomy - Social History Smoking Status: Never smoked Constitutional: Initial Vital Signs Temperature (C) 37.4 C 02/04/18 03:15 Heart Rate 105 H 02/04/18 03:15 Respiratory Rate 20 02/04/18 03:15 Blood Pressure 173/77 H 02/04/18 03:15 O2 Sat (%) 92 02/04/18 03:15 O2 Delivery Mode Room Air Allergies/Adverse Reactions: Sulfa (Sulfonamide Antibiotics) Allergy (Verified 02/04/18 03:35) Other-Enter Comments Home Medications: Medication Instructions Recorded Bimatoprost 0.01% [Lumigan 0.01% 1 drops EACHEYE HS 02/04/18 (*)] Brimonidine/Timolol [Combigan (*)] 1 drop EACHEYE HS 02/04/18 Dorzolamide 2% [Trusopt 2% (*)] 1 drop EACHEYE DAILY 02/04/18 Gabapentin [Neurontin 300 MG (*)] 300 mg PO TID 02/04/18 Labetalol HCl [Trandate 100 mg (*)] 50 mg PO BID 02/04/18 amLODIPine BESYLATE [Norvasc 5 mg 5 mg PO DAILY 02/04/18 (*)] levOFLOXACIN [levAQUIN (*)] 250 mg PO DAILY 02/04/18 Medical Decision Making - Data Points Laboratory Results: Laboratory Results 02/04/18 03:25 02/04/18 03:25 Medications Given: Bimatoprost (Lumigan 0.01%) 1 drops EACHEYE HS [facility] Stop: 08/03/18 20:59 Last Admin: 02/04/18 19:59 Dose: 1 drop Labetalol HCl (Trandate) 50 mg PO BID [facility] Stop: 08/03/18 20:59 Last Admin: 02/04/18 19:58 Dose: 50 mg Miscellaneous Medication (Dorzolamide 2% [Trusopt 2% (*)]) 1 drop EACHEYE DAILY [facility] Stop: 08/03/18 13:59 Last Admin: 02/04/18 15:05 Dose: Not Given Discontinued Medications Sodium Chloride (Ns) 500 mls @ 1,000 mls/hr IV EDNOW ONE PRN Reason: Protocol Stop: 02/04/18 03:37 Last Admin: 02/04/18 03:27 Dose: 500 mls Sodium Chloride (Ns) 1,000 mls @ 0 mls/hr IV ONCE ONE PRN Reason: Wide Open Stop: 02/04/18 05:19 Last Admin: 02/04/18 06:04 Dose: 1,000 mls Point of Care Test Results: Chemistry 02/04/18 03:29 POC Troponin I 0.01 ng/mL ng/mL (0.00-0.08) Departure - Departure Disposition: [facility] Acute Clinical Impression: Confusion, Dehydration, Pleural effusion Fall Qualifiers: Encounter type: initial encounter Qualified Code(s): W19.XXXA - Unspecified fall, initial encounter Condition: Fair
[2018-02-04 03:36] LABS: PLATELET COUNT 425 10^3/uL (150-400)
[2018-02-04 03:44] LABS: INR 1.16 (0.83-1.16)
--- NOTE | 2018-02-04 03:52 | CPEKG ---
Heart Rate: 101 RR Interval: 594 P-R Interval: 172 QRSD Interval: 70 QT Interval: 356 QTC Interval: 462 P [place]: 59 QRS [place]: -6 T Wave [place]: 34 EKG Severity - ABNORMAL ECG - EKG Impression: SINUS TACHYCARDIA EKG Impression: MULTIPLE ATRIAL PREMATURE COMPLEXES Electronically Signed By: Romeo Pichardo 04-Feb-2018 08:07:32
[2018-02-04] MEDS ORDERED: IOPAMIDOL (ISOVUE 370) 100 ML BTL IV ONE (04:43)
[2018-02-04 04:52] LABS: CREATINE KINASE 23 IU/L (0-156)
[2018-02-04] MEDS ORDERED: ONDANSETRON DISINTEGRATING 4 MG TAB PO PRN (04:52)
[2018-02-04] MEDS ORDERED: ACETAMINOPHEN 325 MG TAB PO PRN (04:52)
[2018-02-04] MEDS ORDERED: ONDANSETRON 4 MG/2 ML VIAL IVP PRN (04:52)
[2018-02-04] MEDS ORDERED: NS 1,000 ML IV ONE (05:18)
--- NOTE | 2018-02-04 05:39 | PDGENHP ---
History and Physical - Chief Complaint Fall - History of Present Illness 87 yo F w/ hx of Hodgkin's lymphoma and HTN presents after a fall. Patient tells me she fell out of bed and hit her head. She does not recall how she came to fall out of bed. At this time patient denies specific complaints aside from feeling "strange". Her daughter tells me that patient has not been herself for nearly a month. She explains that the patient's cognition has been less sharp than usual, although she is A&Ox3 during my evaluation. Of note, the patient has not had a stable environment over the last month with a stay in the hospital followed by a stay in rehab and recently back to her independent living facility. She takes gabapentin 300 mg TID, which could possibly be contributing to confusion. Her work-up in the ED has been unremarkable aside from mild tachycardia and CT findings of small R pleural effusion of unclear etiology. Case discussed with ED physician Dr. Reyes. Previous records reviewed including D/C summary by Dr. Olvera dated 01/14/18. History Information - Allergies/Home Medication List Allergies/Adverse Reactions: Sulfa (Sulfonamide Antibiotics) Allergy (Verified 02/04/18 03:35) Other-Enter Comments Home Medications: Amlodipine Besylate 02/04/18 [Last Taken Unknown] Aspirin 02/04/18 [Last Taken Unknown] Combigan (*) 02/04/18 [Last Taken Unknown] Labetalol HCl 02/04/18 [Last Taken Unknown] Lumigan 0.01% (*) 02/04/18 [Last Taken Unknown] I have personally reviewed and updated: family history, medical history - Past Medical History arthritis, hypertension Additional medical history: Hodgkin lymphoma, a extremity wounds, history UTI, glaucoma HTN, chronic pain, history cellulitis in the lower extremities. - Surgical History Additional surgical history: Cataract extraction with lens placement bilaterally. Lower extremity wound bright. Cholecystectomy. Hysterectomy. Left TKA. - Family History Additional family history: Mother- history of hypertension and stroke. Daughter is Healthy. - Social History Smoking Status: Never smoked Additional social history: Patient lives at [facility]. She is . Good support from her daughter. Cor status-DNR DNI. Patient has advance directive and most form completed Review of Systems Review of Systems: ROS: 10pt was reviewed & negative except for what was stated in HPI & below Physical Exam Physical Exam: Temp Pulse Resp BP Pulse Ox 37.4 C 105 H 20 165/79 H 90 L 02/04/18 03:15 02/04/18 05:26 02/04/18 05:26 02/04/18 05:26 02/04/18 05:26 Constitutional: no apparent distress, not in pain Eyes: PERRL, EOMI Ears, Nose, Mouth, Throat: moist mucous membranes, no oral mucosal ulcers Cardiovascular: no murmur, rub, or gallop, tachycardia, edema (1+ b/l DEDRA) Respiratory: no respiratory distress, no rales or rhonchi Gastrointestinal: normoactive bowel sounds, soft, non-tender abdomen Skin: warm, normal color Musculoskeletal: full muscle strength, no muscle tenderness Neurologic: AAOx3, CN II-XII Intact Psychiatric: interacting appropriately, not anxious Lab Data & Imaging Review 02/04/18 03:25 02/04/18 03:25 WBC 12.74 10^3/uL (3.80-9.50) H 02/04/18 03:25 RBC 3.71 10^6/uL (4.18-5.33) L 02/04/18 03:25 Hgb 9.3 g/dL (12.6-16.3) L 02/04/18 03:25 Hct 29.3 % (38.0-47.0) L 02/04/18 03:25 MCV 79.0 fL (81.5-99.8) L 02/04/18 03:25 MCH 25.1 pg (27.9-34.1) L 02/04/18 03:25 MCHC 31.7 g/dL (32.4-36.7) L 02/04/18 03:25 RDW 16.4 % (11.5-15.2) H 02/04/18 03:25 Plt Count 425 10^3/uL (150-400) H 02/04/18 03:25 MPV 9.6 fL (8.7-11.7) 02/04/18 03:25 Neut % (Auto) 80.4 % (39.3-74.2) H 02/04/18 03:25 Lymph % (Auto) 10.7 % (15.0-45.0) L 02/04/18 03:25 Mccone % (Auto) 7.3 % (4.5-13.0) 02/04/18 03:25 Eos % (Auto) 0.2 % (0.6-7.6) L 02/04/18 03:25 Baso % (Auto) 0.5 % (0.3-1.7) 02/04/18 03:25 Nucleat RBC Rel Count 0.0 % (0.0-0.2) 02/04/18 03:25 Absolute Neuts (auto) 10.24 10^3/uL (1.70-6.50) H 02/04/18 03:25 Absolute Lymphs (auto) 1.36 10^3/uL (1.00-3.00) 02/04/18 03:25 Absolute Monos (auto) 0.93 10^3/uL (0.30-0.80) H 02/04/18 03:25 Absolute Eos (auto) 0.03 10^3/uL (0.03-0.40) 02/04/18 03:25 Absolute Basos (auto) 0.07 10^3/uL (0.02-0.10) 02/04/18 03:25 Absolute Nucleated RBC 0.00 10^3/uL (0-0.01) 02/04/18 03:25 Immature Gran % 0.9 % (0.0-1.1) 02/04/18 03:25 Immature Gran # 0.11 10^3/uL (0.00-0.10) H 02/04/18 03:25 PT 15.0 SEC (12.0-15.0) 02/04/18 03:25 INR 1.16 (0.83-1.16) 02/04/18 03:25 APTT 27.4 SEC (23.0-38.0) 02/04/18 03:25 Sodium 132 mEq/L (135-145) L 02/04/18 03:25 Potassium 3.8 mEq/L (3.3-5.0) 02/04/18 03:25 Chloride 101 mEq/L (97-110) 02/04/18 03:25 Carbon Dioxide 23 mEq/l (22-31) 02/04/18 03:25 Anion Gap 8 mEq/L (8-16) 02/04/18 03:25 BUN 10 mg/dL (7-23) 02/04/18 03:25 Creatinine 0.6 mg/dL (0.6-1.0) 02/04/18 03:25 Estimated GFR > 60 02/04/18 03:25 Glucose 191 mg/dL (70-100) H 02/04/18 03:25 Calcium 8.6 mg/dL (8.5-10.4) 02/04/18 03:25 Magnesium 1.6 mg/dL (1.6-2.3) 02/04/18 03:25 Creatine Kinase 23 IU/L (0-156) 02/04/18 03:25 POC Troponin I 0.01 ng/mL (0.00-0.08) 02/04/18 03:29 Procalcitonin 0.17 ng/mL (0.02-0.10) H 02/04/18 03:25 Urine Color YELLOW 02/04/18 04:05 Urine Appearance CLEAR 02/04/18 04:05 Urine pH 7.0 (5.0-7.5) 02/04/18 04:05 Ur Specific [place] 1.008 (1.002-1.030) 02/04/18 04:05 Urine Protein NEGATIVE (NEGATIVE) 02/04/18 04:05 Urine Ketones TRACE (NEGATIVE) H 02/04/18 04:05 Urine Blood NEGATIVE (NEGATIVE) 02/04/18 04:05 Urine Nitrate NEGATIVE (NEGATIVE) 02/04/18 04:05 Urine Bilirubin NEGATIVE (NEGATIVE) 02/04/18 04:05 Urine Urobilinogen NEGATIVE EU (0.2-1.0) 02/04/18 04:05 Ur Leukocyte Esterase NEGATIVE (NEGATIVE) 02/04/18 04:05 Urine Glucose NEGATIVE (NEGATIVE) 02/04/18 04:05 Imaging Review: CTPE Prelim: CT PE No PE New mild right pleural effusion Patchy consolidation RLL and RML increasedsince 01/08/18 Mild prominent mediastinal nodes up to 2cm Spoke w Dr Reyes at 519am Finer Visualized and Interpreted EKG results: Yes EKG Interpretation: Positive for: other (Sinus tach) Assessment & Plan Assessment: 87 yo F w/ Hodgkin's lymphoma and HTN presents with fall, sub-acute confusion, and pleural effusion. Plan: 1. Sub-acute encephalopathy - Unclear etiology; per her daughter the patient has been mildly confused for about 1 month. It is possible this is a manifestation of early dementia complicated by frequently changing environment ( hospital, rehab, back to living facility). Other considerations for etiology include three times daily gabapentin and likely dehydration. It is unclear wether newly found pleural effusion could be contributing. - Admit for observation - PT, OT, CM consultations - 1 L NS now - Discontinue gabapentin and observe mental status - Would likely benefit from neuropsychiatric testing as an outpatient 2. Pleural effusion - New mild right pleural effusion along with patchy consolidation RLL and RML increased since 01/08/[address] Patient denies respiratory symptoms and is currently oxygenating well on room air. Etiology is unclear; she does not have infectious symptoms to suggest parapneumonic effusion but it could still be possible. Malignancy is another consideration. - Observe off of antibiotics for now noting lack of infectious signs/symptoms - Sputum culture ordered - Will consult pulmonology to review images and help determine next steps 3. Hyponatremia - I suspect dehydration related to poor PO intake; rehydrate with IVF and monitor BMP. 4. Anemia - Stable from prior, monitor CBC 5. HTN - Continue home medications, needs med reconciliation 6. Hodgkin's lymphoma - S/p radiation therapy to lumbar mass; not currently undergoing further therapy. Diet - Regular Code - Full Ppx - SCDs Dispo - Admit under observation status
--- NOTE | 2018-02-04 09:19 | CPEKG ---
Heart Rate: 74 RR Interval: 811 P-R Interval: 168 QRSD Interval: 92 QT Interval: 404 QTC Interval: 449 P [place]: 7 QRS [place]: 45 T Wave [place]: -21 EKG Severity - BORDERLINE ECG - EKG Impression: SINUS RHYTHM EKG Impression: BORDERLINE T ABNORMALITIES, DIFFUSE LEADS Electronically Signed By: Leonel Wilhelm 06-Feb-2018 11:08:17
--- NOTE | 2018-02-04 11:21 | ASMTCMCOM ---
CM Note CM Note Notes: Patient admitted after a fall and recent hx of AMS. She was last admitted here January 08, and her daughter Chelsea tells me that her symptoms of confusion began then and have not really improved. She discharged from [facility] to [facility] and spent a week there before being readmitted here today. Normally, the patient lives in independent living at [facility]. Her daughter Chelsea has spoke with the director there, Dacia, who is recommending SNF and then a transition to assisted living or memory care. Workup is still pending, but I imagine this will be an appropriate discharge plan. Case Management will follow. Date Signed: 02/04/2018 11:20 AM Electronically Signed By:Erlinda Patten RN
--- NOTE | 2018-02-04 14:48 | HOSPPROG ---
Hospitalist Progress Note Assessment/Plan: 87 yo F w/ Hodgkin's lymphoma and HTN presents with fall, sub-acute confusion, and pleural effusion. Plan: 1. Sub-acute encephalopathy - Unclear etiology; per her daughter the patient has been mildly confused for about 1 month. It is possible this is a manifestation of early dementia complicated by frequently changing environment (hospital, rehab, back to living facility). Other considerations for etiology include three times daily gabapentin and likely dehydration. Gabapentin dc'd. It is unclear wether newly found pleural effusion could be contributing. - Admit for observation - PT, OT, CM consultations - 1 L NS now - Discontinue gabapentin and observe mental status - Would likely benefit from neuropsychiatric testing as an outpatient 2. Pleural effusion - New mild right pleural effusion along with patchy consolidation RLL and RML increased since 01/08/[address] Patient denies respiratory symptoms and is currently oxygenating well on room air. Etiology is unclear; she does not have infectious symptoms to suggest parapneumonic effusion but it could still be possible. Malignancy is another consideration. - Observe off of antibiotics for now noting lack of infectious signs/symptoms - Sputum culture ordered - consulted pulmonology to review images and help determine next steps 3. Hyponatremia - I suspect dehydration related to poor PO intake; rehydrate with IVF and monitor BMP. 4. Anemia - Stable from prior, monitor CBC 5. HTN - Continue home medications, needs med reconciliation 6. Hodgkin's lymphoma - S/p radiation therapy to lumbar mass; not currently undergoing further therapy. Diet - Regular Code - Full Ppx - SCDs Dispo - Admit under observation status Subjective: Feeling well. Tired. Objective: Vital Signs Temp Pulse Resp BP Pulse Ox 36.9 C 106 H 20 132/58 H 89 L 02/04/18 11:30 02/04/18 11:30 02/04/18 11:30 02/04/18 11:30 02/04/18 11:30 02/03/18 02/04/18 02/05/18 05:59 05:59 05:59 Intake Total 1000 400 Balance 1000 400 PT 15.0 SEC (12.0-15.0) 02/04/18 03:25 INR 1.16 (0.83-1.16) 02/04/18 03:25 - Physical Exam Constitutional: appears nourished, chronically ill appearing Eyes: PERRL, anicteric sclera Ears, Nose, Mouth, Throat: moist mucous membranes, hearing normal Cardiovascular: No JVD, No edema Respiratory: no respiratory distress, no rales or rhonchi, reduced air movement Gastrointestinal: no palpable masses, No tenderness, No ascites Skin: warm, normal color Musculoskeletal: muscular tenderness, generalized weakness Neurologic: AAOx3 Psychiatric: interacting appropriately, not anxious ICD10 Worksheet Patient Problems: Problems Problem Status Onset Hyponatremia Acute Word finding difficulty Acute Confusion Acute Hypertension Acute Confusion Acute UTI (urinary tract infection) Acute Encephalopathy acute Acute Pneumonia Acute Dehydration Acute Fall Acute Pleural effusion Acute
[2018-02-04] MEDS: DORZOLAMIDE 2% EACHEYE SCH (15:05)
[2018-02-04] MEDS ORDERED: GABAPENTIN 300 MG CAP PO SCH (16:00)
--- NOTE | 2018-02-04 17:38 | GCON ---
[f rep st] CONSULTATION PULMONARY CONSULT DATE OF CONSULTATION: 02/04/2018 HISTORY OF PRESENT ILLNESS: This patient is an 87-year-old female with a history of Hodgkin lymphoma , for which she has gotten chemotherapy and radiation therapy up through December. She has also had diffi culty with multiple falls and was admitted with a similar fall and mental status changes. Of note, s he had a recent admission for what was thought to be a possible psoas abscess with drain. Cultures w ere negative, but she was treated with antibiotics in any. On admission, she was found to have a whi te count of 12,000 with a normal BMP and a CT scan showed multifocal infiltrates, particularly in the right middle lobe and the right lower lobe with a mild effusion, thought to be pneumonia. However, her procalcitonin was relatively low. She has had a chronic cough for quite some time, possibly year s, particularly with eating or drinking, though she has had speech evaluations in the past. There jensen s been no change in her cough and there has been no specific sputum production and no shortness of br eath or respiratory problems that she was aware of PAST MEDICAL HISTORY: 1. Includes Hodgkin lymphoma as described above. 2. Hypertension. 3. Possible psoas abscess. 4. Degenerative joint disease. 5. Nonhealing wounds of her lower extremities. 6. Glaucoma. 7. Cellulitis. 8. Lymphedema. 9. Hyponatremia. PAST SURGICAL HISTORY: Includes cataracts, cholecystectomy, hysterectomy, total knee arthroplasty, l ower extremity stents. SOCIAL HISTORY: She is a nonsmoker. No alcohol or IV drug use. FAMILY HISTORY: Noncontributory. MEDICATIONS: At this time include Norvasc, Lumigan, Combigan, Trandate, Zofran. PHYSICAL EXAM: VITAL SIGNS: She has been afebrile with a blood pressure of 132/58, heart rate of 10 0, respiratory rate 20, oxygen saturation 90% on room air. GENERAL: She is very pleasant woman sitt ing up in a chair, in no apparent distress and able to speak in full sentences without using accessor y muscles for breathing. HEENT: Pupils equally round and reactive to light. Nonicteric and noninje cted. Mucous membranes moist without erythema or exudate. NECK: Supple without adenopathy or jugul ar vein distention. RESPIRATORY: Breath sounds were diminished but clear to auscultation bilaterall y without wheezes, rubs, or rales. HEART: Regular rate and rhythm without obvious murmur. EXTREMIT IES: Showed no clubbing, cyanosis, or edema. NEUROLOGICAL: Nonfocal. OBJECTIVE DATA: Includes a CT scan as described above. She did have a white count of 12.7, hematocr it 29, platelets 425. Basic metabolic panel normal. Procalcitonin 0.17. ASSESSMENT/PLAN: Abnormal CT scan. I suspect this may be related to aspiration given her history, a s she likely has an aspiration pneumonitis rather than a bacterial infection. I do not think any spe cific therapy is required at this time. Other possibilities are issues related to her underlying lym phoma and may develop into an infection. This could also be related to her falls. I think still isabelle t observation is the only thing indicated at this time. I would withhold antibiotics and continue to observe. She should get a repeat CT scan probably in about 4 weeks. /[id number]/MODL
[2018-02-04] MEDS: LABETALOL HCL 100 MG TAB PO SCH (19:58)
[2018-02-04] MEDS: BIMATOPROST 0.01% 2.5 ML OPHT.BTL EACHEYE SCH (19:59)
[2018-02-04] MEDS: BRIMONIDINE/TIMOLOL 5 ML OPHT.BTL EACHEYE SCH (20:00)
[2018-02-05] MEDS: LABETALOL HCL 100 MG TAB PO SCH ×2 (08:53→20:40)
[2018-02-05] MEDS: amLODIPine BESYLATE 5 MG TAB PO SCH (08:54)
[2018-02-05] MEDS: DORZOLAMIDE 2% EACHEYE SCH (08:55)
--- NOTE | 2018-02-05 11:32 | HOSPPROG ---
Hospitalist Progress Note Assessment/Plan: 87 yo F w/ Hodgkin's lymphoma and HTN presents with fall, sub-acute confusion, and pleural effusion. Plan: # Sub-acute encephalopathy - Unclear etiology; per her daughter the patient has been mildly confused for about 1 month. It is possible this is a manifestation of early dementia complicated by frequently changing environment (hospital, rehab, back to living facility). Other considerations for etiology include three times daily gabapentin and likely dehydration. Gabapentin dc'd. It is unclear wether newly found pleural effusion could be contributing. - PT, OT, CM consultations - Discontinue gabapentin and observe mental status - Would likely benefit from neuropsychiatric testing as an outpatient # Pleural effusion - New mild right pleural effusion along with patchy consolidation RLL and RML increased since 01/08/[address] -Patient denies respiratory symptoms and is currently oxygenating well on room air. -Etiology is unclear; she does not have infectious symptoms to suggest parapneumonic effusion but it could still be possible. Malignancy is another consideration. - Observe off of antibiotics for now noting lack of infectious signs/symptoms - Sputum culture ordered - appreciate pulmonology consult # Hyponatremia - I suspect dehydration related to poor PO intake; rehydrate with IVF and monitor BMP. # Anemia - Stable from prior, monitor CBC # HTN - Continue home medications, needs med reconciliation # Hodgkin's lymphoma - S/p radiation therapy to lumbar mass; not currently undergoing further therapy. -consult Dr. Means, discussed consult #LLE wound -D/W Dr garcia -she will see her today -elevate legs Diet - Regular Code - Full Ppx - SCDs Dispo change to inpt status requiring further evaluation in hospital setting Subjective: Up in chair. Very tired today. Didn't sleep well last night. Objective: Vital Signs Temp Pulse Resp BP Pulse Ox 36.9 C 88 18 129/76 H 90 L 02/05/18 11:13 02/05/18 11:13 02/05/18 11:13 02/05/18 11:13 02/05/18 11:13 02/04/18 02/05/18 02/06/18 05:59 05:59 05:59 Intake Total 1000 1100 Balance 1000 1100 PT 15.0 SEC (12.0-15.0) 02/04/18 03:25 INR 1.16 (0.83-1.16) 02/04/18 03:25 - Physical Exam Constitutional: no apparent distress, appears nourished, not in pain Eyes: PERRL, anicteric sclera, EOMI Ears, Nose, Mouth, Throat: moist mucous membranes, hearing normal, ears appear normal Cardiovascular: No JVD, No tachycardia, No edema Respiratory: no respiratory distress, no rales or rhonchi, reduced air movement Gastrointestinal: normoactive bowel sounds, No tenderness, No ascites Skin: warm, normal color, No mottled Musculoskeletal: normal joint ROM, no joint effusions, generalized weakness Neurologic: AAOx3 Psychiatric: interacting appropriately, not anxious, not encephalopathic, poor judgement, poor memory ICD10 Worksheet Patient Problems: Problems Problem Status Onset Hyponatremia Acute Word finding difficulty Acute Confusion Acute Hypertension Acute Confusion Acute UTI (urinary tract infection) Acute Encephalopathy acute Acute Pneumonia Acute Dehydration Acute Fall Acute Pleural effusion Acute
--- NOTE | 2018-02-05 13:13 | PDMN ---
Medical Necessity Medical necessity: Pt meets inpt criteria per MD order on 02/05 and MCG M-540, Pleural Effusion, A-2 days. Pt admitted w/sub-acute encephalopathy, new R pleural effusion and patchy consolidation RLL and RML increased since 01/08/18, hyponatremia and probable dehydration requiring IVF, Hodgkin Lymphoma (recent treatment), LLE wound- surg consult pending, med nec ongoing inpt monitoring and treatment, status change 02/05 @ 11:25.
--- NOTE | 2018-02-05 13:57 | GCON ---
[f rep st] CONSULTATION ONCOLOGY INITIAL VISIT. PRIMARY ONCOLOGIST: Dr. Miladis Bernard. REASON FOR EVALUATION: E and M for Hodgkin lymphoma. HISTORY OF PRESENT ILLNESS: Information is gathered from the patient as well as medical records. Th e patient is an 87-year-old woman who was diagnosed in September 2015 with Hodgkin lymphoma that prese nted as a painful 4 cm lump on the inner aspect of her left thigh. Apparently, the biopsy was review ed by Dr. Tita He at [facility] and initial staging was stage IIA. She was treated with ABVD x2 with o nly a mild response and poorly tolerated. She then underwent radiation in the summer of 2015 and was complicated by lower extremity edema. In November 2016, PET scan showed adenopathy in the chest betwee n the esophagus and thoracic aorta as well as left periaortic region and the aortic bifurcation. 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 She was treated with dexamethasone and radiation and her last CT scanning for staging was in December and this is where the fl uid collection with gas was identified. She was in the hospital about a month ago with a fluid collection near the iliopsoas. Cultures were drawn and she was started on antibiotics. She also had cultures drawn from the fluid near the iliops oas muscle. The cultures did not grow anything and her problems seemed to resolve. This was near ent placement of the left common iliac that was placed because of stenosis of the left common iliac v ein. After her hospitalization, she was discharged to rehab and recently back to her assisted living, but she reports that she has not been herself. She has had bouts of confusion and disorientation. She h as not felt well and has had a poor appetite. She was brought into the hospital after a fall and pos sibly hitting her head. She denies any headaches right now. She denies any fever or chills at home. ALLERGIES: She is allergic to sulfa. HOME MEDICATIONS: Include dorzolamide eye drops, gabapentin 300 mg 3 times daily, reports levofloxac in, amlodipine, labetalol, brimonidine/timolol eye drops, and bimatoprost eyedrops. CHRONIC ILLNESSES: 1. Lymphoma as described above. 2. Hypertension. 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 4. Glaucoma. 5. History of TIA. 6. Arthritis. SURGICAL HISTORY: Includes cataract lens placement bilaterally, cholecystectomy, hysterectomy, left total knee. SOCIAL HISTORY: Nonsmoker. She currently lives in [place]. FAMILY HISTORY: Noncontributory. REVIEW OF SYSTEMS: 10-point review of systems performed. Pertinent positives as per HPI, otherwise negative or unchanged. PHYSICAL EXAM: VITAL SIGNS: Current temperature is 36.9, pulse is 88, blood pressure 129/76, satura ting 90% on room air, however, overnight she had a temperature to 38.3 with a heart rate of 108. GEN ERAL: She is an elderly woman, appears to be alert and oriented, but she is worried about problems w ith memory and issues at home. HEENT: Unremarkable. LUNGS: Decreased breath sounds in the right b ase and some rhonchi. CARDIAC: Regular without murmur. She does have lower extremity edema bilater ally, left maybe greater than right is. ABDOMEN: Soft, nontender, without hepatosplenomegaly. TRISTIN L EXAM: I do not appreciate significant lymphadenopathy. NEUROLOGIC: Appeared to be grossly intact . LABS: Chemistries were unremarkable. Sodium a little low 132. CBC, white count 12,000, with mostly neutrophils and immature granulocytes. Hemoglobin is 9.3, but that is actually improved, platelet c ount 425,000. Last sedimentation rate was 40. Her UA just showed trace ketones. Last urine culture showed some different colonies, but current blood cultures are pending. A CT angiogram which I revi ewed with Radiology today. There is a patchy consolidation right middle lobe and right lower lobe wi th right pleural effusion suspicious for possible pneumonia. There are prominent lymph nodes in the mediastinum and the area of the thoracic inlet. There is no PE. It is difficult to know how long th ose lymph nodes have been there or how much change there has been. IMPRESSION: 1. Possible pneumonia with pleural effusion on CT. 2. Vague disorientation complaints at home. 3. Hodgkin lymphoma. Status of disease is unclear at this time. PLAN: 1. Definitely with her age and along with the elevated white count and some vague symptoms, infectio n is a possibility. I agree with getting cultures and I think we should sample the fluid from her sarah ngs and send it for evaluation. It is possible that she is just not showing typical symptoms such as high fever. She is not currently on antibiotics. I think it is reasonable to wait until we get [place] ter[place] information. 2. She also may be having progression of her Hodgkin lymphoma. We are going to check a sedimentatio n rate that might be helpful if it has increased significantly, but probably what we need to do is re peat a PET-CT scan in the outpatient setting. Dr. Bernard in his last note had indicated that if she w as progressing, he could resume brentuximab vedotin or even consider switching to an anti-PD-1 immuno therapy. We will follow along with you while in the hospital. /[id number]/MODL
[2018-02-05] MEDS ORDERED: LIDOCAINE 1% 300 MG/30 ML SDV ONE (14:41)
[2018-02-05 14:50] LABS: PLATELET COUNT 416 10^3/uL (150-400)
--- NOTE | 2018-02-05 15:43 | ASMTCMCOM ---
CM Note CM Note Notes: Chart reviewed. Patient just recently discharged to home with [facility]. She was evaluated by OT but they reccommend SNF. Left message with her daughter to discuss d/c plan of care. CM to follow. L Plan: Likely NF when medically appropriate for discharge. Date Signed: 02/05/2018 03:42 PM Electronically Signed By:Radha Lanza RN
[2018-02-05] MEDS: BIMATOPROST 0.01% 2.5 ML OPHT.BTL EACHEYE SCH (20:39)
[2018-02-05] MEDS: BRIMONIDINE/TIMOLOL 5 ML OPHT.BTL EACHEYE SCH (20:40)
[2018-02-06] MEDS: LABETALOL HCL 100 MG TAB PO SCH ×2 (08:22→20:42)
[2018-02-06] MEDS: amLODIPine BESYLATE 5 MG TAB PO SCH (08:22)
[2018-02-06] MEDS: DORZOLAMIDE 2% EACHEYE SCH (08:24)
--- NOTE | 2018-02-06 10:10 | HOSPPROG ---
Hospitalist Progress Note Assessment/Plan: Patient is an 87-year-old female with a history of Hodgkin's lymphoma who presented w a fall and confusion as well as a pleural effusion. Today is my first encounter w the patient, chart reviewed. # encephalopathy -patient has been confused for a month -she has been in various environments and had been on gabapentin (high dose) this was dc -family should consider neuropsychiatric evaluation as an OP -? if lymphoma is progressing -also has an elevated sed rate with a slightly elevated procalcitonin -she is alert and oriented today to person, place, time and situation # Pleural effusion - New mild right pleural effusion along with patchy consolidation RLL and RML increased since 01/08/[address] - monitor off antibiotics for now noting lack of infectious signs/symptoms #aspiration pneumonitis -should get a repeat CT in 4 weeks -antibiotics not indicated #gait instability w fall -PT and OT # Hyponatremia - secondary to poor intake -eating well today # Anemia - Stable from prior, monitor CBC # HTN - Continue home medications, needs med reconciliation # Hodgkin's lymphoma -treated w chemotherapy and radiation #LLE wound -Dr Scruggs to see and treat tomorrow -elevate legs #Plan: appreciate oncology seeing her, unclear of why her sed rate is elevated. Will cont monitoring. Dr Scruggs to see tomorrow. Subjective: Vickie is tired today. Has no other complaints. Objective: Vital Signs Temp Pulse Resp BP Pulse Ox 36.7 C 86 16 141/68 H 95 02/06/18 07:43 02/06/18 08:22 02/06/18 07:43 02/06/18 08:22 02/06/18 07:43 Microbiology 02/05/18 15:55 Gram Stain - Final Thoracic Fluid - Aspirate Laboratory Results 02/05/18 14:30 02/05/18 14:30 02/05/18 02/06/18 02/07/18 05:59 05:59 05:59 Intake Total 250 Output Total 800 200 Balance -550 -200 PT 15.0 SEC (12.0-15.0) 02/04/18 03:25 INR 1.16 (0.83-1.16) 02/04/18 03:25 - Physical Exam Constitutional: no apparent distress, appears nourished, not in pain, chronically ill appearing Eyes: PERRL Ears, Nose, Mouth, Throat: hearing normal Cardiovascular: regular rate and rhythym Respiratory: no respiratory distress Gastrointestinal: normoactive bowel sounds Skin: warm, No normal color (pale) Neurologic: AAOx3 Psychiatric: interacting appropriately, not encephalopathic ICD10 Worksheet Patient Problems: Problems Problem Status Onset Confusion Acute Dehydration Acute Fall Acute Pleural effusion Acute Confusion Acute Encephalopathy acute Acute Hypertension Acute Hyponatremia Acute Pneumonia Acute UTI (urinary tract infection) Acute Word finding difficulty Acute
--- NOTE | 2018-02-06 11:08 | SOAPPROG ---
SOAP Progress Note Assessment/Plan: Assessment: 1. History of Hodgkins lymphoma 2. PLeural effusion - transudative. unclear etiology 3. Failure to thrive 4. Anemia of chronic inflammation Suspect that patient has progressive Hodgkins causing her symptoms. Plan: - PET-CT scan - will try to arrange during this admission - potential Rx for Hodgkins could be PD-1 inbhibitor (nivolumab or pembrolizumab ) - await analysis of pleural fluid, though suspect it will be nondiagnostic 25 min spent w/ pt and in coordination of care 02/06/18 11:06 02/06/18 11:07 Subjective: feels tired. Objective: exam: NAD Lungs CTAB CV RRR no MGR Abd: +BS NT ND Ext: no edema Neuro: a+ox3 Vital Signs Temp Pulse Resp BP Pulse Ox 36.7 C 86 16 141/68 H 95 02/06/18 07:43 02/06/18 08:22 02/06/18 07:43 02/06/18 08:22 02/06/18 07:43 Microbiology 02/05/18 15:55 Gram Stain - Final Thoracic Fluid - Aspirate Laboratory Results 02/05/18 14:30 02/05/18 14:30 02/05/18 02/06/18 02/07/18 05:59 05:59 05:59 Intake Total 250 Output Total 800 300 Balance -550 -300 PT 15.0 SEC (12.0-15.0) 02/04/18 03:25 INR 1.16 (0.83-1.16) 02/04/18 03:25 ICD10 Worksheet Patient Problems: Problems Problem Status Onset Confusion Acute Dehydration Acute Fall Acute Pleural effusion Acute Confusion Acute Encephalopathy acute Acute Hypertension Acute Hyponatremia Acute Pneumonia Acute UTI (urinary tract infection) Acute Word finding difficulty Acute
--- NOTE | 2018-02-06 14:51 | PDINTPN ---
Surgical Appliance Fitter Progress Note Assessment/Plan: 87 F with hodgkins lymphoma undergoing active chemo and stereotacic XRT admitted with abnormal mental status in setting of recent psoas abscess drain ( negative cultures). Her workup inluded a chest CT showing patchy infiltrates bilaterally and a new pleural effusion (though small). She reported difficulty swallowing and cough with drinking. * Abnormal CT- this may represent silent or overt aspiration pneumonitis since her procalcitonin was not impressively high and she has done well without abx. Lymphoma involvement is another possibility as well as opportunistic infections (PCP, for example, should elevate the PCT). Assuming she continues to follow a benign clinical course, no bronchoscopy is needed at this time. * Pleural effusion- while technically an exudate since the pleural/serum LDH ratio is > 0.6, I think its primarily a transudate. Cytology is pending, but clearly no infection, bleeding, CHF, nephrosis, ascites, urinothorax, rheumatoid arthritis. Subjective: feels about the same. Some confusion, but no change in last 4 weeks. No sob Objective: Vital Signs Temp Pulse Resp BP Pulse Ox 37.0 C 79 16 116/63 94 02/06/18 11:45 02/06/18 11:45 02/06/18 11:45 02/06/18 11:45 02/06/18 11:45 Microbiology 02/05/18 15:55 Gram Stain - Final Thoracic Fluid - Aspirate Laboratory Results 02/05/18 14:30 02/05/18 14:30 02/05/18 02/06/18 02/07/18 05:59 05:59 05:59 Intake Total 250 Output Total 800 300 Balance -550 -300 PT 15.0 SEC (12.0-15.0) 02/04/18 03:25 INR 1.16 (0.83-1.16) 02/04/18 03:25 Physical Exam - Physical Exam General Appearance: alert, no apparent distress EENT: PERRL/EOMI Neck: supple Respiratory: lungs clear, normal breath sounds, No respiratory distress, No accessory muscle use Cardiac/Chest: regular rate, rhythm, No edema Abdomen: non-tender, soft, No distended Skin: normal color, warm/dry, No cyanosis Lymphatic: no adenopathy Extremities: No pedal edema Neuro/Psych: alert, normal mood/affect ICD10 Worksheet Patient Problems: Problems Problem Status Onset Confusion Acute Dehydration Acute Fall Acute Pleural effusion Acute Confusion Acute Encephalopathy acute Acute Hypertension Acute Hyponatremia Acute Pneumonia Acute UTI (urinary tract infection) Acute Word finding difficulty Acute
[2018-02-06] MEDS: BIMATOPROST 0.01% 2.5 ML OPHT.BTL EACHEYE SCH (20:42)
[2018-02-06] MEDS: BRIMONIDINE/TIMOLOL 5 ML OPHT.BTL EACHEYE SCH (20:42)
--- NOTE | 2018-02-07 08:53 | SOAPPROG ---
SOAP Progress Note Assessment/Plan: Assessment: 87 yo with lymphoma I have been following her for LLE wounds and she is s/p stent to iliac vein and epifix placement Will have wound team place amniofill on or sunday I discussed case with her daughter Chelsea and unsure why Vickie is progressively confused - ?lymphoma? S: Vickie is confused today. Asking for a pencil in order to order her meal. I offered to help. She also doesn't think Chelsea has been by O: Sitting in chair, appears well but is confused from her baseline Plan: 02/07/18 08 Objective: Vital Signs Temp Pulse Resp BP Pulse Ox 36.6 C 94 16 163/71 H 94 02/07/18 07:18 02/07/18 07:18 02/07/18 07:18 02/07/18 07:18 02/07/18 07:18 Microbiology 02/05/18 15:55 Gram Stain - Final Thoracic Fluid - Aspirate Laboratory Results 02/05/18 14:30 02/05/18 14:30 02/06/18 02/07/18 02/08/18 05:59 05:59 05:59 Intake Total 250 Output Total 800 1700 Balance -550 -1700 PT 15.0 SEC (12.0-15.0) 02/04/18 03:25 INR 1.16 (0.83-1.16) 02/04/18 03:25 ICD10 Worksheet Patient Problems: Problems Problem Status Onset Confusion Acute Dehydration Acute Fall Acute Pleural effusion Acute Confusion Acute Encephalopathy acute Acute Hypertension Acute Hyponatremia Acute Pneumonia Acute UTI (urinary tract infection) Acute Word finding difficulty Acute
[2018-02-07] MEDS: amLODIPine BESYLATE 5 MG TAB PO SCH (09:00)
[2018-02-07] MEDS: LABETALOL HCL 100 MG TAB PO SCH ×2 (09:00→20:10)
[2018-02-07] MEDS: DORZOLAMIDE 2% EACHEYE SCH (09:02)
--- NOTE | 2018-02-07 10:26 | HOSPPROG ---
Hospitalist Progress Note Assessment/Plan: Patient is an 87-year-old female with a history of Hodgkin's lymphoma who presented w a fall and confusion as well as a pleural effusion. # encephalopathy -patient has been confused for a month -she has been in various environments and had been on gabapentin (high dose) this was dc -family should consider neuropsychiatric evaluation as an OP -? if lymphoma is progressing -also has an elevated sed rate with a slightly elevated procalcitonin -she is alert and oriented today # Pleural effusion (transudative) - New mild right pleural effusion along with patchy consolidation RLL and RML increased since 01/08/[address] - monitor off antibiotics for now noting lack of infectious signs/symptoms #aspiration pneumonitis -should get a repeat CT in 4 weeks -antibiotics not indicated #gait instability w fall -PT and OT # Hyponatremia - secondary to poor intake - improved # Anemia - Stable from prior, monitor CBC # HTN - Continue home medications -blood pressure has been high, but was normotensive when I evaluated her # Hodgkin's lymphoma -treated w chemotherapy and radiation -plan is for oncology to arrange for a PET CT scan during this hospitalization #LLE wound -Dr Scruggs to see and treat tomorrow -elevate legs #Plan: hopefully, dc in the next day or so with close f/u with oncology Subjective: Vickie said her appetite is better, has no complaints. Objective: Vital Signs Temp Pulse Resp BP Pulse Ox 36.6 C 94 16 163/71 H 94 02/07/18 07:18 02/07/18 09:00 02/07/18 07:18 02/07/18 09:00 02/07/18 07:18 Microbiology 02/05/18 15:55 Gram Stain - Final Thoracic Fluid - Aspirate Laboratory Results 02/05/18 14:30 02/05/18 14:30 02/06/18 02/07/18 02/08/18 05:59 05:59 05:59 Intake Total 250 Output Total 800 1700 Balance -550 -1700 PT 15.0 SEC (12.0-15.0) 02/04/18 03:25 INR 1.16 (0.83-1.16) 02/04/18 03:25 - Physical Exam Constitutional: no apparent distress, appears nourished, not in pain Eyes: PERRL Ears, Nose, Mouth, Throat: hearing normal Cardiovascular: regular rate and rhythym Respiratory: no respiratory distress, clear to auscultation Gastrointestinal: normoactive bowel sounds Skin: warm, No normal color (pale) Musculoskeletal: generalized weakness Neurologic: AAOx3 Psychiatric: interacting appropriately, not encephalopathic ICD10 Worksheet Patient Problems: Problems Problem Status Onset Confusion Acute Dehydration Acute Fall Acute Pleural effusion Acute Confusion Acute Encephalopathy acute Acute Hypertension Acute Hyponatremia Acute Pneumonia Acute UTI (urinary tract infection) Acute Word finding difficulty Acute
--- NOTE | 2018-02-07 13:28 | SOAPPROG ---
SOAP Progress Note Assessment/Plan: E&M for Hodgkin's * Hodgkin's lymphoma: s/p ABVDx2 (poorly tolerated); Brentuximab vedotinx6 through 03/22; xrt to L4-L5 Spring 2017. Suspect she is progressing with failure to thrive, worsening anemia, rising ESR, and what looks like new lymph nodes at right thoracic outlet. Spoke with Dr. Bernard. Rather than wait for a PET, will go forward with staging CTs and try to start therapy with either Nivolumab or Pembrolizumab. Will discuss with pharmacy. Drugs, depending on dose, are given either q2, q3, or q4 weeks. Once in, she could go to SNF for rehab and follow up. * Pleural effusion - transudative. unclear etiology. No sign of infection or lymphoma * Anemia of chronic inflammation: can transfusion as clinically indicated; should improve with therapy. Subjective: Doing about the same. No pain. Still feeling very weak. Daughter with patient. Objective: Vital Signs Temp Pulse Resp BP Pulse Ox 36.8 C 86 16 133/78 H 96 02/07/18 12:00 02/07/18 12:00 02/07/18 12:00 02/07/18 12:00 02/07/18 12:00 Microbiology 02/05/18 15:55 Gram Stain - Final Thoracic Fluid - Aspirate Laboratory Results 02/05/18 14:30 02/05/18 14:30 02/06/18 02/07/18 02/08/18 05:59 05:59 05:59 Intake Total 250 Output Total 800 1700 Balance -550 -1700 PT 15.0 SEC (12.0-15.0) 02/04/18 03:25 INR 1.16 (0.83-1.16) 02/04/18 03:25 Laboratory Tests 02/04/18 02/05/18 02/05/18 03:25 14:30 14:30 Hgb 9.3 L 8.8 L ESR 68 H Iron Saturation 8 L Ferritin 243.0 Lactate Dehydrogenase 407 Physical Exam - Physical Exam General Appearance: no apparent distress Respiratory: decreased breath sounds (right) Cardiac/Chest: regular rate, rhythm Abdomen: non-tender, soft Lymphatic: no adenopathy ICD10 Worksheet Patient Problems: Problems Problem Status Onset Confusion Acute Dehydration Acute Fall Acute Pleural effusion Acute Confusion Acute Encephalopathy acute Acute Hypertension Acute Hyponatremia Acute Pneumonia Acute UTI (urinary tract infection) Acute Word finding difficulty Acute
[2018-02-07] MEDS ORDERED: IOPAMIDOL (ISOVUE-300) 100 ML BTL ONE (15:07)
--- NOTE | 2018-02-07 16:50 | ASMTCMCOM ---
CM Note CM Note Notes: Spoke with pt and dtr Chelsea, pt lives at [facility], she will need SNF. Dtr interested in [facility], CM called and spoke to Leydi at [facility], they have semi private beds available but do not take Medicare. Dtr to talk with sibling that handle finances. DC date unclear, pt getting further tests, CM w/f. DC Plan: SNF Date Signed: 02/07/2018 04:49 PM Electronically Signed By:Supriya Mae RN
[2018-02-07] MEDS: BIMATOPROST 0.01% 2.5 ML OPHT.BTL EACHEYE SCH (20:10)
[2018-02-07] MEDS: BRIMONIDINE/TIMOLOL 5 ML OPHT.BTL EACHEYE SCH (21:27)
[2018-02-08] MEDS: amLODIPine BESYLATE 5 MG TAB PO SCH (10:03)
[2018-02-08] MEDS: LABETALOL HCL 100 MG TAB PO SCH ×2 (10:03→20:13)
[2018-02-08] MEDS: DORZOLAMIDE 2% EACHEYE SCH (10:04)
--- NOTE | 2018-02-08 10:25 | HOSPPROG ---
Hospitalist Progress Note Assessment/Plan: Patient is an 87-year-old female with a history of Hodgkin's lymphoma who presented w a fall and confusion as well as a pleural effusion. # encephalopathy -patient has been confused for a month -she has been in various environments and had been on gabapentin (high dose) this was dc -family should consider neuropsychiatric evaluation as an OP -she is alert, oriented, initially didn't remember month but after thinking about it, knew it was February. Knows she is in the hospital -could be caused by the lymphoma # Pleural effusion (transudative) - New mild right pleural effusion along with patchy consolidation RLL and RML increased since 01/08/[address] - monitor off antibiotics for now noting lack of infectious signs/symptoms #aspiration pneumonitis -should get a repeat CT in 4 weeks -antibiotics not indicated #gait instability w fall -PT and OT # Hyponatremia - secondary to poor intake - improved # Anemia - Stable from prior, monitor CBC # HTN - Continue home medications # Hodgkin's lymphoma -treated w chemotherapy and radiation -evaluated CT scan -new lymph nodes noted -she will start therapy with either Nivolumab or Pembrolizumab. #LLE wound -wound care to see and change dressing today #Plan: reviewed her care w Dr Means, will aim to dc tomorrow. Daughter to get 24 hour care for her mom. Dr Means recommended aspirin therapy. Subjective: Vickie is feeling ok, has no complaints. Objective: Vital Signs Temp Pulse Resp BP Pulse Ox 36.8 C 93 16 164/82 H 93 02/08/18 08:00 02/08/18 08:00 02/08/18 08:00 02/08/18 08:00 02/08/18 08:00 Microbiology 02/05/18 15:55 Gram Stain - Final Thoracic Fluid - Aspirate Body Fluid Culture - Final Laboratory Results 02/05/18 14:30 02/05/18 14:30 02/07/18 02/08/18 02/09/18 05:59 05:59 05:59 Output Total 1700 700 950 Balance -1700 -700 -950 PT 15.0 SEC (12.0-15.0) 02/04/18 03:25 INR 1.16 (0.83-1.16) 02/04/18 03:25 - Physical Exam Constitutional: appears nourished, not in pain, chronically ill appearing Eyes: PERRL Ears, Nose, Mouth, Throat: hearing normal Respiratory: no respiratory distress Skin: warm, No normal color (pale) Musculoskeletal: generalized weakness Neurologic: AAOx3 Psychiatric: interacting appropriately ICD10 Worksheet Patient Problems: Problems Problem Status Onset Confusion Acute Dehydration Acute Fall Acute Pleural effusion Acute Confusion Acute Encephalopathy acute Acute Hypertension Acute Hyponatremia Acute Pneumonia Acute UTI (urinary tract infection) Acute Word finding difficulty Acute
--- NOTE | 2018-02-08 10:50 | WOCRNPDOC ---
WOCRN Advanced Assessment Note - Skin Integrity Problem, Advanced Assess Left Lower Leg Dressing Type: ABD Pad, Coban, Kerlix Dressing Description: Clean/Dry, Intact Exudate Amount: Scant Exudate Characteristic(s): Serosanguinous Integumentary Issue Intervention: Dressing Changed, Dressing Initialed & Dated, Skin Tissue Substitute Application Rimma Wound Tissue: Macerated (proximal from 6-9 oclock minimally), Scaly ( distal wound) Rimma Wound Swelling: None Wound Bed Color: [place], Yellow Wound Bed Constitution: Granulation Tissue (90% in proximal wound and 100% in distal), Adhered Slough (10% in proximal wound ) Wound Edges: Epithelizing, Attached (proximal from 6-12 oclock, 100% attached in distal wound), Not Attached (from 12-5 oclock in proximal wound ) Site Odor: Slight, Musky Site Measurement - Head-to-Toe Length X Width X Depth (cm): proximal: 3.3x1.8x0.4, distal, 1.2x1.1x0.2 Skin Integrity Problem Comment: Removed coban and entire dressing with direct instructions from Dr. Scruggs. Patient verbalized multiple times that she was extremely worried that wound not be disturbed unless Dr. Scruggs had ordered it. She repeated this several times and verbalized "there will be hell to pay". Cleaned wound with ns and gauze. Used forceps to mechanically remove some old slough in proximal wound. 100 mg of Amniofill (RoundPegg) placental based skin tissue substitute placed in both wounds and covered with Adaptic touch. This was secured with steri strips. It was clearly written on the steri strips to leave the dressing intact until 02/15. Covered with Aquacel dressing, ABD then kerlix and coban without any compression. Tammi SAMPSON in room for care. Report given to Dr. Scruggs. Next dressing change due 02/15.
--- NOTE | 2018-02-08 13:21 | SOAPPROG ---
SOAP Progress Note Assessment/Plan: E&M for Hodgkin's * Hodgkin's lymphoma: s/p ABVDx2 (poorly tolerated); Brentuximab vedotin x6 through 03/22; xrt to L4-L5 Spring 2017. Suspect she is progressing with failure to thrive, worsening anemia, rising ESR, and new lymph nodes at right thoracic outlet. D/W Dr. Bernard and with her daughter. Will see about going home with home health and then come in early next week for Nivolumab 6 mg/kg dose, which can be given every 4 weeks. After, if she is still having trouble, can look into SNF or rehab. * Pleural effusion - transudative. unclear etiology. No sign of infection or lymphoma * Anemia of chronic inflammation: can transfuse as clinically indicated; should improve with therapy. * Abn Head CT: most likely micro-emboli. No onc contra-indications to restarting aspirin. Subjective: She is eating lunch. Gets confused easier but no acute complaints. Daughter with patient. Objective: Vital Signs Temp Pulse Resp BP Pulse Ox 36.8 C 79 16 134/67 H 91 L 02/08/18 11:54 02/08/18 11:54 02/08/18 11:54 02/08/18 11:54 02/08/18 11:54 Microbiology 02/05/18 15:55 Gram Stain - Final Thoracic Fluid - Aspirate Body Fluid Culture - Final Laboratory Results 02/05/18 14:30 02/05/18 14:30 02/07/18 02/08/18 02/09/18 05:59 05:59 05:59 Output Total 8021 436 3076 Balance -1700 -700 -1150 PT 15.0 SEC (12.0-15.0) 02/04/18 03:25 INR 1.16 (0.83-1.16) 02/04/18 03:25 Physical Exam - Physical Exam General Appearance: no apparent distress Respiratory: rhonchi (right base but better) Cardiac/Chest: regular rate, rhythm, edema Abdomen: soft ICD10 Worksheet Patient Problems: Problems Problem Status Onset Confusion Acute Dehydration Acute Fall Acute Pleural effusion Acute Confusion Acute Encephalopathy acute Acute Hypertension Acute Hyponatremia Acute Pneumonia Acute UTI (urinary tract infection) Acute Word finding difficulty Acute
--- NOTE | 2018-02-08 15:31 | ASMTCMCOM ---
CM Note CM Note Notes: CM and FOOD SERVER spoke with pt and dtr Chelsea, plan is for pt to return to [facility] with [facility] and [facility] 24hr care. DC likely Sunday. DC Plan: Home care/ [facility] (PT/OT) + [facility] services Date Signed: 02/08/2018 03:31 PM Electronically Signed By:Supriya Mae RN
[2018-02-08] MEDS: BIMATOPROST 0.01% 2.5 ML OPHT.BTL EACHEYE SCH (20:13)
[2018-02-08] MEDS: BRIMONIDINE/TIMOLOL 5 ML OPHT.BTL EACHEYE SCH (20:15)
[2018-02-09 07:37] VITALS: BP 126/71
--- NOTE | 2018-02-09 08:29 | HOSPPROG ---
Hospitalist Progress Note Assessment/Plan: Patient is an 87-year-old female with a history of Hodgkin's lymphoma who presented w a fall and confusion as well as a pleural effusion. # encephalopathy -patient has been confused for a month -she has been in various environments and had been on gabapentin (high dose) this was dc -family should consider neuropsychiatric evaluation as an OP -could be caused by the lymphoma # Pleural effusion (transudative) - New mild right pleural effusion along with patchy consolidation RLL and RML increased since 01/08/[address] - monitor off antibiotics for now noting lack of infectious signs/symptoms #aspiration pneumonitis -should get a repeat CT in 4 weeks -antibiotics not indicated #gait instability w fall -PT and OT # Hyponatremia - secondary to poor intake - improved # Anemia - Stable from prior, recheck hgb and hct now # HTN - Continue home medications # Hodgkin's lymphoma -treated w chemotherapy and radiation -evaluated CT scan -new lymph nodes noted -she will start therapy with Nivolumab on Sunday and get this every 4 weeks #LLE wound -wound care to see and change dressing today #Plan: dc home if hgb and hct are stable, she looks very pale; daughter has arranged 24 hour care for her mom along with home care Subjective: Vickie is feeling fine, no complaints. Objective: Vital Signs Temp Pulse Resp BP Pulse Ox 36.8 C 85 22 H 126/71 H 95 02/09/18 07:32 02/09/18 07:32 02/09/18 07:32 02/09/18 07:32 02/09/18 07:32 Microbiology 02/05/18 15:55 Gram Stain - Final Thoracic Fluid - Aspirate Body Fluid Culture - Final Laboratory Results 02/05/18 14:30 02/05/18 14:30 02/08/18 02/09/18 02/10/18 05:59 05:59 05:59 Intake Total 200 Output Total 700 2200 Balance -700 -2000 PT 15.0 SEC (12.0-15.0) 02/04/18 03:25 INR 1.16 (0.83-1.16) 02/04/18 03:25 - Physical Exam Constitutional: not in pain, chronically ill appearing Eyes: PERRL Ears, Nose, Mouth, Throat: hearing normal Respiratory: no respiratory distress Skin: warm, No normal color (pale) Musculoskeletal: generalized weakness Neurologic: AAOx3 Psychiatric: interacting appropriately, flat affect ICD10 Worksheet Patient Problems: Problems Problem Status Onset Hyponatremia Acute Word finding difficulty Acute Confusion Acute Hypertension Acute Confusion Acute UTI (urinary tract infection) Acute Encephalopathy acute Acute Pneumonia Acute Dehydration Acute Fall Acute Pleural effusion Acute
[2018-02-09] MEDS ORDERED: ASPIRIN EC 81 MG TAB PO SCH (09:00)
[2018-02-09] MEDS: LABETALOL HCL 100 MG TAB PO SCH (10:33)
[2018-02-09] MEDS: amLODIPine BESYLATE 5 MG TAB PO SCH (10:33)
[2018-02-09] MEDS: DORZOLAMIDE 2% EACHEYE SCH (10:36)
--- NOTE | 2018-02-09 15:52 | PDIAF ---
- Diagnosis Diagnosis: acute encephalopathy, anemia, hodgkins lymphoma, pleural effusion Code Status: Full Code - Medication Management Discharge Medications: Medications to Continue on Transfer Bimatoprost 0.01% [Lumigan 0.01% (*)] 1 drops EACHEYE HS 02/04/18 [Last Taken Unknown] Brimonidine/Timolol [Combigan (*)] 1 drop EACHEYE HS 02/04/18 [Last Taken Unknown] Dorzolamide 2% [Trusopt 2% (*)] 1 drop EACHEYE DAILY 02/04/18 [Last Taken Unknown] Labetalol HCl [Trandate 100 mg (*)] 50 mg PO BID 02/04/18 [Last Taken Unknown] amLODIPine BESYLATE [Norvasc 5 mg (*)] 5 mg PO DAILY 02/04/18 [Last Taken Unknown] Acetaminophen [Tylenol 325mg (*)] 650 mg PO Q4HRS PRN tab 02/09/18 [Last Taken Unknown] Aspirin EC [Aspirin EC 81 mg (*)] 81 mg PO DAILY tab 02/09/18 [Last Taken Unknown] Discharge Medications: Refer to the Discharge Home Medication list for PRN reason. - Orders Services needed: Home Care, Physical Therapy, Occupational Therapy Home Care Face to Face: I certify that this patient was under my care and that I had the required [id number] encounter meeting the encounter requirements on the discharge day. My findings support the fact that the patient is homebound as defined in Home Care Face to Face Continued: [facility] Chapter 7 Medicare Benefits Manual 30.1.1 , The condition of the patient is such that there exists a normal inability to leave home and consequently, leaving home would require a considerable and taxing effort. Isolation Type: None Diet Recommendation: no restrictions on diet Diet Texture: Regular Texture Diet Additional Instructions: Amniofill 100 mg placed on both posterior left lower leg wounds on 02/08/18. Next dressing change due 02/15/18. Josiane Zelaya CWON stop gabapentin, Neurontin; likely contributing to her confusion resumed aspirin 81 mg ask oncology if you need to stay on the Levaquin recommending a repeat CT scan of your chest to follow w pleural effusion in 4 weeks - Labs/Radiology HCT/HGB Date: 02/12/18 - Follow Up Care Current Providers and Referrals: Patient,NotPresent [Unknown] - As per Instructions Amador Bernard MD [Medical Doctor] -
--- NOTE | 2018-02-09 16:03 | ASMTDCNOTE ---
Case Management Discharge Discharge Order Complete? Answers: Yes Patient to Obtain Answers: Independently Medications Transportation Arranged Answers: Family/Friends Faxed Final Orders Answers: Yes Family Notified Answers: Yes Discharge Comments Notes: Patient discharging home with daughter Chelsea. [place] [facility] will begin service tomorrow. [facility] will begin service within 48 hours. Patient has an appointment at [facility] Sunday. Date Signed: 02/09/2018 04:02 PM Electronically Signed By:Erlinda Patten RN
--- NOTE | 2018-02-09 16:18 | GDS ---
[f rep st] DISCHARGE SUMMARY DISCHARGE DIAGNOSES: 1. Acute encephalopathy. 2. Pleural effusion, transudative. 3. Aspiration pneumonitis. 4. Gait instability with falls. 5. Hyponatremia. 6. Anemia. 7. Hypertension. 8. Hodgkin lymphoma. 9. Left lower extremity wound. CONSULTATIONS: 1. Dr. Katie Means. 2. Dr. Dennis Coreas. BRIEF HISTORY: Zully Eli is an 87-year-old woman who has a history of Hodgkin lymphoma for [facility] she has gotten chemotherapy and radiation up through December. She has had multiple falls and was admi tted with mental status changes. She has also had a chronic cough for quite some time. She had a CT scan that showed multiple infiltrate, particularly in the right middle lobe and right lower lobe wit h a mild effusion. Initially thought it was to be pneumonia, but her procalcitonin was low. She had a thoracentesis with fluid removed. It was noted to be transudative fluid. She improved without tr eatment of antibiotics. In addition, there was concern of ongoing confusion. It is unclear the etio logy, but her lymphoma may be progressing. The plan is for the patient to go home with 24-hour care. Her daughter has arranged all of this. In addition, she will come to [facility] and start chemotherapy on Sunday. She will get this every 4 weeks and see her response to this. HOSPITAL COURSE PER PROBLEM: 1. Acute encephalopathy. I suspect this is multifactorial. She has slowly improved but has some mo ments of confusion during her stay. She has been in multiple longterm facilities. The plan i s for her to be in her own home with 24-hour care. In addition, we discontinued her gabapentin that may have also caused this. In further talking with Oncology, there could be an etiology of this seco ndary to the lymphoma. 2. Pleural effusion. This is transudative. She has done fine without antibiotics. 3. Aspiration pneumonitis. The plan is for her to get a repeat CT in 4 weeks and antibiotics are no t indicated. 4. Gait instability with a fall. PT and OT. 5. Hyponatremia. This is secondary to poor intake. 6. Anemia. Hemoglobin and hematocrit have drifted down slightly. Will have this monitored and che ked on Sunday. 7. Hypertension. Home medications have been resumed. 8. Hodgkin lymphoma. She was treated with chemotherapy and radiation. Her CT scan shows new lymph nodes. She will start therapy with nivolumab on Sunday and get this every 4 weeks. 9. Left lower extremity wound care instructions have been written out for home care. DISCHARGE CONDITION: Stable. Blood pressure 126/71, respiratory rate 22, pulse 85, temperature 36.8 Celsius, O2 saturations on room air 95%. MEDICATIONS AT DISCHARGE: Please see the EMR. DISCHARGE INSTRUCTIONS: 1. To follow up with Dr. Bernard as scheduled on Sunday. 2. If the patient does have difficulty at home and is not able to stay there with 24-hour care, I to ld the daughter to talk to their primary care provider and see if they can arrange for her to go to a longterm facility. 3. Close monitoring of her labs in the outpatient setting. 4. If she develops fever, chills, chest pain, shortness of breath, worsening confusion, return to [facility] ER. Greater than 30 minutes discharging and coordinating patient's care. /[id number]/MODL
== END 2018-02-09 16:39 | disposition home health service (06) | DRG 70 ==
LOC: EDUNIT# → F3E 05:28 → OBSVTOIN 02-05 11:25
PROVIDERS: ADMIT Student in an Organized Health Care Education/Training Program; ATTEND Student in an Organized Health Care Education/Training Program
PROC: 0W993ZX Drainage of Right Pleural Cavity, Percutaneous Approach, Diagnostic (ICD-10-PCS; principal; 2018-02-05)
DX: G93.49 Other encephalopathy (principal); J69.0 Pneumonitis due to inhalation of food and vomit; J90 Pleural effusion, not elsewhere classified; E87.1 Hypo-osmolality and hyponatremia; C81.90 Hodgkin lymphoma, unspecified, unspecified site; R26.89 Other abnormalities of gait and mobility; R29.6 Repeated falls; D63.8 Anemia in other chronic diseases classified elsewhere; I10 Essential (primary) hypertension; W06.XXXA Fall from bed, initial encounter
CPT/HCPCS: 82607-90; 84484-PO; 92507-GN; 92523-GN; 97112-GP; 97116-GP; 97162-GP; 97166-GO; 97530-GO; 97530-GP; 97535-GO; G0378; G8978-GP-CK; G8979-GP-CI; G8987-GO-CJ; G8988-GO-CI; G9165-GN-CJ; G9166-GN-CI; Q9967